=== PATIENT | male | born 1970 | race Caucasian/White ===

== ENCOUNTER 2019-11-12 09:59 | Outpatient (CLI) | payer OTHER, SELFPAY ==
[2019-11-12 10:28] LABS: Basophils # 0.1 10^3/uL (0.0-0.1); Eosinophils # 0.2 10^3/uL (0.0-0.8); Eosinophils % 3.5 %; Hematocrit 45.7 % (42.0-52.0); Hemoglobin 15.2 g/dL (11.7-16.6); Lymphocytes # 1.5 10^3/uL (0.8-4.8); Mean Corpuscular HGB Conc 33.3 g/dL (30.0-36.0); Mean Corpuscular Hemoglobin 28.1 pg (28.0-34.0); Mean Corpuscular Volume 84.6 fL (80-94); Mean Platelet Volume 10.6 fL (7.4-10.4); Monocytes # 0.4 10^3/uL (0.2-0.9); Monocytes % 6.9 %; Neutrophils # 3.6 10^3/uL (1.8-7.7); Neutrophils % 62.9 %; Nucleated Red Blood Cells % 0 %; Platelet Count 154 10^3/cmm (130-400); Red Cell Distribution Width 14.2 % (12.1-15.1); White Blood Count 5.8 10^3/uL (4.0-10.0)
[2019-11-12 10:32] LABS: Alanine Aminotransferase 52 U/L (0-41); Albumin Level 4.6 g/dL (3.5-5.2); Alkaline Phosphatase 63 IU/L (40-130); Anion Gap 16.2 (5-19); Aspartate Amino Transferase 50 U/L (0-40); Blood Urea Nitrogen 16 mg/dL (6-20); Calcium 9.7 mg/dL (8.5-10.5); Carbon Dioxide 25 mmol/L (22-29); Chloride 99 mmol/L (98-107); Globulin 2.4 g/dL (1.3-4.6); Glomerular Filtration Rate 79.1 mL/min (90-130); Glucose 166 mg/dL (65-115); Osmolality Calculated 282 mOsm/kg (285-295); Potassium 4.2 mmol/L (3.5-5.1); Sodium 136 mmol/L (136-145); Total Bilirubin 0.4 mg/dL (0.15-1.2)
[2019-11-12 11:13] LABS: Carcinoembryonic Antigen 3.7 ng/mL (0.0-4.7)
--- NOTE | 2019-11-12 12:05 | ONC FU_ITS ---
Dr. Alfaro follow up note Patient: Titus Vicente Unit #: [id number]: 1970 Dicatated By: Aleisha Alfaro M.D.Date of Visit:Nov 12, 2019 Onc Med Follow-up/Prog Note History of Present Illness: Mr. Vicente is a 49 -year-old gentleman who was recently diagnosed with colon cancer. He reports that he underwent colonoscopy which confirmed adenocarcinoma and on 02/04/2018 he underwent Hand-assisted laparoscopic left hemicolectomy. The final pathology report showed low-grade, focal penetration through muscularis propria into serosal/pericolonic connective tissue. The tumor size was 7.5 x 4.5 cm with positive small lymphovascular space invasion and 0 out of 18 lymph nodes were positive for metastatic disease. Postop it was complicated by severe skin rash with acute renal failure. He also started having stool draining from his incision. He was treated with antibiotic and TPN and with wound VAC. That has now resolved. He's had no further drainage from the wound. Mr Vicente was sent to [facility] for second opinion regarding clinical trial, if available for stage II a colon cancer. On 05/13/2018 he was evaluated by . Dr Story recommended, considering the patient's age and tumor being MMR deficient/MSI -H, and a high risk feature included only small lymphovascular involvement and possibly perineural invasion not mentioned on the path report, adjuvant FOLFOX or CAPOX , as at this point is a no clinical trial available for stage II colon cancer. Germline testing for Hawthorne syndrome was also recommended. Mr Vicente began his first cycle of FOLFOX on June 23, 2018 And completed 12 cycles of modified dose FOLFOX on 01/19/2019 . Since he is on chemotherapy his transaminases remained elevated with some fluctuation Patient did admit alcohol consumption , sometime heavily. Came for follow-up, denies any specific complaints, no fever or chills, no mouth sores no nausea vomiting, still drinking vodka on a regular basis. Patient has seen dog food dough mixer in [place] for abnormal LFTs. And also recently underwent appendicectomy on 12/11/2018 for acute appendicitis. Follow-up CT scan of abdomen done on 02/18 showed no evidence of metastatic disease in the lungs or liver Follow-up colonoscopy done on March 09, 2019 showed normal exam no evidence of stricture or anastomotic recurrence Came for follow-up, denies any specific complaint today, no fever chills, no nausea or vomiting, no mouth sores, no jaundice, no abdominal pain, no weight loss, appetite is good. 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 . Medications: Cetirizine HCl 1 Tablet (of 10 mg) Oral daily, Flonase 1 [place](s) (of 50 mcg/act) Suspension Nasal at bedtime, Lidocaine-Prilocaine 1 (2.5-2.5 %) Cream Topical PRN, LORazepam 0.5 - 1 mg (of 1 mg) Tablet Oral t.i.d. PRN, Multivitamin Adult 1 Tablet Oral daily, Prochlorperazine Maleate 1 Tablet (of 10 mg) Oral q 4 hours PRN, Protonix 1 Tablet (of 20 mg) Tablet, enteric coated Oral b.i.d. Allergies: Niacin Review of Systems: Constitutional - Appetite is good and weight is stable. No fever, chills, or night sweats. Positive for occasional hot flashes. Energy level is good, ENMT - No sinus congestion/drainage. No mouth sores. No sore throat or difficulty swallowing, Hematologic/Lymphatic - No abnormal bruising or bleeding, Respiratory - No shortness of breath. No cough. No pleuritic pain or hemoptysis, Cardiovascular - No angina pain. No palpitations, Gastrointestinal - No nausea or vomiting. No heartburn or acid reflux. No diarrhea or constipation. No blood in the stool or black stools, Genitourinary (M) - No dysuria or hematuria. No urinary frequency. No urgency or incontinence, Musculoskeletal - No joint or bone pain, Neurologic - No headache or dizziness. No numbness/paresthesias or other focal neurologic symptoms, Psychiatric - No anxiety or depression. No insomnia. Vital Signs: Performed on Nov 12, 2019 11:23 Height - 73.00 in Weight - 318.6 lbs (LOW) BSA - 2.62 sq.m BMI - 42.03 (HIGH) Temperature - 97.5 F (LOW) Pulse - 75 /min Respiration - 20 /min BP - 150/92 mm(hg) (HIGH) O2 Sat - 94 % (LOW) Pain - 0 Performance Status: 0 - Fully active, able to carry on all predisease activities without restrictions. (ECOG) Physical Examination: ENMT - No mouth sores, no thrush, no jaundice, Respiratory - Lungs are clear to auscultation, Cardiovascular - Regular rate and rhythm of heart, Abdomen - Soft, bowel sounds present, nontender, Extremities - No visible edema or rash. Lab/Imaging: Most recent lab results are not available for this patient. Impression: Infiltrating adenocarcinoma, low-grade of descending colon status post hand-assisted laparoscopic left hemicolectomy done on 02/04/2018, final pathology report showed 7.5 x 4.5 cm, focal penetration through muscularis propria into serosal/pericolonic connective tissue positive small lymphovascular space invasion, margins clear pT3, 0 out of 18 lymph node showed metastatic disease pN0 stage II CT scan of abdomen pelvis done on 02/11/2018 showed no hepatic lesion MSI status deficient Oncotype DX score 18 Patient was referred to [facility] for second opinion and clinical trials if available, patient was seen by , medical oncologist who recommended adjuvant chemotherapy with FOLFOX ???12 orCAPOX for 6 months as patient is young with high risk factor like lymphovascular space involvement and possibly perineural invasion. discussed with Mr Vicente his disease status and risk factors and the recommendations by , medical oncologist at [facility]. Mr. Vicente has agreed for adjuvant chemotherapy with FOLFOX x 12 cycles. Mr. Vicente had right subclavian Port-A-Cath placed by Dr. Stanford on 06/15/2018. He began his first cycle of FOLFOX on 06/23/2018. Patient tumor also showed loss of MMR proteins on screening IHC confirms dMMR phenotype but not necessarily indicate less than syndrome as about 15% of sporadic colorectal cancer also have MSI. Patient is BRAF negative so germline testing for Hawthorne syndrome also recommended. 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 Favor this due to hepatic steatosis or transient hepatic attenuation differences and not metastatic disease. Recommend follow-up ultrasound the liver to confirm there is no metastatic disease. There was no ascites or adenopathy in the abdomen or pelvis. Abnormal LFTs, questionable etiology could be due to fatty liver or chemotherapy-induced. He was started on modified dose of FOLFOX Patient was seen by Dr. Duenas, dog food dough mixer, at [facility] 0n12/21/2018,and his impression was patient's abnormal LFTs is due to nonalcoholic steatohepatitis, of chronic steatohepatitis and drug toxicity related to chemotherapy, FOLFOX contains oxaliplatin, and agent that can cause sinusoidal obstructive syndrome. Patient has no episode of portal hypertension or is complication. His recommendations were to continue with adjuvant chemotherapy and complete with remaining 2 cycles. Mr. Vicente did have appendectomy in November 2018. He had at cycle 11 FOLFOX on 01/04/2019 and is planned to have cycle 12 today. Plan: Discussed with patient regarding his labs white blood count 5.8 hemoglobin 15.2 crit 45.7 platelets 154,000 CMP within normal limits except glucose 166 and ALT 52 compared to 153 on February 22, 2019 and AST 50 compared to 176 on February 22, 2019 and his tumor marker CEA 3.7 Clinically, patient is doing well with no signs symptoms suggestive of recurrence of disease his follow-up lab work-up showed normal CBC and his transaminases also improved since his last visit as per patient, he is not consuming much alcohol due to coronavirus lockdown, still has abnormal LFTs in the past could be due to excessive alcohol intake. Patient was encouraged not to indulge in alcohol use, was offered any assistance he may need in the meantime we will continue to monitor his blood counts and liver function test and he will return to clinic in 4 months with CBC CMP and CEA. Signed By: Aleisha Alfaro M.D. <<Signature on File>>
== END 2019-11-12 10:00 | disposition home or self-care (01) ==
LOC: ONCMED 10:04
PROVIDERS: PCP Nurse Practitioner Family; Visit Provider Internal Medicine Hematology & Oncology
DX: Z08 Encounter for follow-up examination after completed treatment for malignant neoplasm (principal); Z85.038 Personal history of other malignant neoplasm of large intestine; K57.30 Diverticulosis of large intestine without perforation or abscess without bleeding; K21.9 Gastro-esophageal reflux disease without esophagitis; G62.9 Polyneuropathy, unspecified
CPT/HCPCS: 80053; 82378; 85025; G0463

== ENCOUNTER 2020-01-07 11:57 | Outpatient (CLI) | payer OTHER, SELFPAY ==
--- NOTE | 2020-01-07 13:30 | CT_ITS ---
WS: [id number] CT ABDOMEN PELVIS TECHNIQUE: Contrast-enhanced CT of the abdomen and pelvis with coronal and sagittal reformatted image s. CLINICAL INFORMATION: abdominal pain COMPARISON: None. DLP: 1193.[address] scans at [facility] use at least one of these dose optimization techniques: automat ed exposure control; mA and/or kV adjustment per patient size (includes targeted exams where dose is matched to clinical indication); or iterative reconstruction. FINDINGS: Hepatomegaly diffuse fatty infiltration liver. Normal spleen. Normal gallbladder. Small splenule. Mil d fatty atrophy of the pancreas. Normal GE junction. Lung bases are well aerated. Calcified granuloma is in both lower lobes. Adrenal glands are normal. Mild bilateral renal cortical atrophy. No hydronephrosis. Normal gallbladd er. Normal portal vein and splenic vein. Sigmoid diverticulosis. Prior left hemicolectomy for colon carcinoma. No evidence of residual or recu rrent disease. Normal anastomosis. No abdominal or pelvic lymphadenopathy. Normal caliber abdominal aorta. Mild spondylitic changes lumbar spine. CT/CT abdomen pelvis w con* [id number] IMPRESSION: 1. Prior postoperative changes left hemicolectomy. No evidence of recurrent di sease. 2. No recurrent mass or stricture at the anastomosis. 3. No abdominal or pelvic lymphadenopathy. 4. Hepatomegaly with diffuse fatty infiltration liver. 5. No other significant changes from previous
[2020-01-07] MEDS: iohexol 300 mg/mL 50 mL Btl PO (13:41)
[2020-01-07] MEDS: iohexol 300 mg/mL 100 mL Btl IV (13:41)
== END 2020-01-07 11:58 | disposition home or self-care (01) ==
LOC: RADWPI 12:01
PROVIDERS: PCP Nurse Practitioner Family; Visit Provider Surgery
DX: R10.9 Unspecified abdominal pain (principal); R16.0 Hepatomegaly, not elsewhere classified; K76.0 Fatty (change of) liver, not elsewhere classified
CPT/HCPCS: 74177; Q9967

== ENCOUNTER → 2020-01-21 08:26 | Outpatient (BNVA) | payer OTHER, SELFPAY | PROVIDERS: PCP Nurse Practitioner Family; Visit Provider Family Medicine | DX: I10 Essential (primary) hypertension (principal); E11.8 Type 2 diabetes mellitus with unspecified complications; E78.5 Hyperlipidemia, unspecified; Z12.5 Encounter for screening for malignant neoplasm of prostate | CPT/HCPCS: 80053; 80061; 82043; 83036; 83721; 85025; G0103 ==

== ENCOUNTER → 2020-02-16 13:23 | Outpatient (BNVA) | payer OTHER, SELFPAY | PROVIDERS: PCP Family Medicine; Visit Provider Family Medicine | DX: E78.5 Hyperlipidemia, unspecified (principal) | CPT/HCPCS: 80053 ==

== ENCOUNTER 2020-03-10 09:23 | Outpatient (CLI) | payer OTHER, SELFPAY ==
[2020-03-10 09:55] LABS: Basophils # 0.1 10^3/uL (0.0-0.1); Basophils % 1.1 %; Eosinophils # 0.2 10^3/uL (0.0-0.8); Eosinophils % 2.6 %; Hemoglobin 15.4 g/dL (11.7-16.6); Lymphocytes # 1.9 10^3/uL (0.8-4.8); Lymphocytes % 28.2 %; Mean Corpuscular HGB Conc 32.8 g/dL (30.0-36.0); Mean Corpuscular Hemoglobin 28.3 pg (28.0-34.0); Mean Corpuscular Volume 86.2 fL (80-94); Mean Platelet Volume 10.3 fL (7.4-10.4); Monocytes # 0.6 10^3/uL (0.2-0.9); Monocytes % 9.1 %; Neutrophils # 3.83 10^3/uL (1.8-7.7); Neutrophils % 58.2 %; Nucleated Red Blood Cells % 0 %; Platelet Count 189 10^3/cmm (130-400); Red Blood Count 5.45 10^6/uL (4.1-5.3); Red Cell Distribution Width 13.8 % (12.1-15.1); White Blood Count 6.6 10^3/uL (4.0-10.0)
[2020-03-10 10:23] LABS: Carcinoembryonic Antigen 3.4 ng/mL (0.0-4.7)
[2020-03-10 10:34] LABS: Alanine Aminotransferase 98 U/L (0-41); Albumin Level 4.6 g/dL (3.5-5.2); Alkaline Phosphatase 63 IU/L (40-130); Anion Gap 18.4 (5-19); Aspartate Amino Transferase 88 U/L (0-40); Blood Urea Nitrogen 15 mg/dL (6-20); Calcium 9.4 mg/dL (8.5-10.5); Carbon Dioxide 21 mmol/L (22-29); Chloride 99 mmol/L (98-107); Globulin 2.9 g/dL (1.3-4.6); Glomerular Filtration Rate 70.6 mL/min (90-130); Glucose 164 mg/dL (65-115); Osmolality Calculated 282 mOsm/kg (285-295); Potassium 4.4 mmol/L (3.5-5.1); Sodium 134 mmol/L (136-145); Total Bilirubin 0.4 mg/dL (0.15-1.2); Total Protein 7.5 g/dL (6.6-8.7)
--- NOTE | 2020-03-10 11:38 | ONC FU_ITS ---
Dr. Alfaro follow up note Patient: Titus Vicente Unit #: [id number]: 1970 Dicatated By: Aleisha Alfaro M.D.Date of Visit:Mar 10, 2020 Onc Med Follow-up/Prog Note History of Present Illness: Mr. Vicente is a 50 -year-old gentleman who was recently diagnosed with colon cancer. He reports that he underwent colonoscopy which confirmed adenocarcinoma and on 02/04/2018 he underwent Hand-assisted laparoscopic left hemicolectomy. The final pathology report showed low-grade, focal penetration through muscularis propria into serosal/pericolonic connective tissue. The tumor size was 7.5 x 4.5 cm with positive small lymphovascular space invasion and 0 out of 18 lymph nodes were positive for metastatic disease. Postop it was complicated by severe skin rash with acute renal failure. He also started having stool draining from his incision. He was treated with antibiotic and TPN and with wound VAC. That has now resolved. He's had no further drainage from the wound. Mr Vicente was sent to [facility] for second opinion regarding clinical trial, if available for stage II a colon cancer. On 05/13/2018 he was evaluated by . Dr Story recommended, considering the patient's age and tumor being MMR deficient/MSI -H, and a high risk feature included only small lymphovascular involvement and possibly perineural invasion not mentioned on the path report, adjuvant FOLFOX or CAPOX , as at this point is a no clinical trial available for stage II colon cancer. Germline testing for Hawthorne syndrome was also recommended. Mr Vicente began his first cycle of FOLFOX on June 23, 2018 And completed 12 cycles of modified dose FOLFOX on 01/19/2019 . Since he is on chemotherapy his transaminases remained elevated with some fluctuation Patient did admit alcohol consumption , sometime heavily. Came for follow-up, denies any specific complaints, no fever or chills, no mouth sores no nausea vomiting, still drinking vodka on a regular basis. Patient has seen graduate civil engineer in [place] for abnormal LFTs. And also recently underwent appendicectomy on 12/11/2018 for acute appendicitis. Follow-up CT scan of abdomen done on 02/18 showed no evidence of metastatic disease in the lungs or liver Follow-up colonoscopy done on March 09, 2019 showed normal exam no evidence of stricture or anastomotic recurrence Patient underwent CT scan of abdomen pelvis on January 07, 2020 because of right upper quadrant pain and it showed no evidence of disease but hepatomegaly with diffuse fatty infiltration of the liver. No lymphadenopathy. . Came for follow-up, patient denies any specific complaints, no fever chills, no nausea or vomiting, right upper quadrant pain has resolved, no melena or hematochezia, appetite is good, patient said his still drinking but in moderation. Medications: Atorvastatin Calcium 1 Tablet (of 20 mg) Oral daily, Cetirizine HCl 1 Tablet (of 10 mg) Oral daily, Flonase 1 [place](s) (of 50 mcg/act) Suspension Nasal at bedtime, Lidocaine-Prilocaine 1 (2.5-2.5 %) Cream Topical PRN, Lisinopril 1 Tablet (of 5 mg) Oral daily, LORazepam 0.5 - 1 mg (of 1 mg) Tablet Oral t.i.d. PRN, metFORMIN HCl 1 Tablet (of 500 mg) Oral daily, Multivitamin Adult 1 Tablet Oral daily, Prochlorperazine Maleate 1 Tablet (of 10 mg) Oral q 4 hours PRN, Protonix 1 Tablet (of 20 mg) Tablet, enteric coated Oral b.i.d. Allergies: Niacin Review of Systems: Review of Systems is not available for this patient. Vital Signs: Performed on Mar 10, 2020 10:59 Height - 73.00 in Weight - 312.8 lbs (LOW) BSA - 2.60 sq.m BMI - 41.27 (HIGH) Temperature - 97.1 F (LOW) Pulse - 80 /min Respiration - 20 /min BP - 142/83 mm(hg) (HIGH) O2 Sat - 97 % Pain - 0 Performance Status: 0 - Fully active, able to carry on all predisease activities without restrictions. (ECOG) Physical Examination: ENMT - No mouth sores, no thrush, no jaundice, Respiratory - Lungs are clear to auscultation, Cardiovascular - Regular rate and rhythm of heart, Abdomen - Soft, bowel sounds present, Extremities - No visible edema. Lab/Imaging: Test performed on Nov 12, 2019 10:10 Sodium 136 mmol/L Potassium 4.2 mmol/L Chloride 99 mmol/L CO2 25 mmol/L Anion Gap 16.2 BUN 16 mg/dL Creatinine 1.0 mg/dL Cr Clearance (Est) 175.4300 mL/min eGFR 79.1 mL/min Glucose 166 mg/dL Calcium 9.7 mg/dL Protein, Total 7.0 g/dL Albumin 4.6 g/dL Globulin 2.4 g/dL Bilirubin, Total 0.4 mg/dL ALT (SGPT) 52 U/L AST (SGOT) 50 U/L Alkaline Phosphatase 63 IU/L WBC 5.8 10 3/uL RBC 5.40 10 6/uL HGB 15.2 g/dL HCT 45.7 % MCV 84.6 fL MCH 28.1 pg MCHC 33.3 g/dL RDW 14.2 % Platelet Count 154 10 3/cmm MPV 10.6 fL Neutrophils 3.6 10 3/uL Lymphocytes 1.5 10 3/uL Monocytes 0.4 10 3/uL Eosinophils 0.2 10 3/uL Basophils 0.1 10 3/uL Neutrophil % 62.9 % Lymphocyte % 25.0 % Monocyte % 6.9 % Eosinophil % 3.5 % Basophils % 1.0 % NRBC % 0 % CEA 3.7 ng/mL Impression: Infiltrating adenocarcinoma, low-grade of descending colon status post hand-assisted laparoscopic left hemicolectomy done on 02/04/2018, final pathology report showed 7.5 x 4.5 cm, focal penetration through muscularis propria into serosal/pericolonic connective tissue positive small lymphovascular space invasion, margins clear pT3, 0 out of 18 lymph node showed metastatic disease pN0 stage II CT scan of abdomen pelvis done on 02/11/2018 showed no hepatic lesion MSI status deficient Oncotype DX score 18 Patient was referred to [facility] for second opinion and clinical trials if available, patient was seen by , medical oncologist who recommended adjuvant chemotherapy with FOLFOX ???12 orCAPOX for 6 months as patient is young with high risk factor like lymphovascular space involvement and possibly perineural invasion. discussed with Mr Vicente his disease status and risk factors and the recommendations by , medical oncologist at [facility]. Mr. Vicente has agreed for adjuvant chemotherapy with FOLFOX x 12 cycles. Mr. Vicente had right subclavian Port-A-Cath placed by Dr. Stanford on 06/15/2018. He began his first cycle of FOLFOX on 06/23/2018. Patient tumor also showed loss of MMR proteins on screening IHC confirms dMMR phenotype but not necessarily indicate less than syndrome as about 15% of sporadic colorectal cancer also have MSI. Patient is BRAF negative so germline testing for Hawthorne syndrome also recommended. 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 Favor this due to hepatic steatosis or transient hepatic attenuation differences and not metastatic disease. Recommend follow-up ultrasound the liver to confirm there is no metastatic disease. There was no ascites or adenopathy in the abdomen or pelvis. Abnormal LFTs, questionable etiology could be due to fatty liver or chemotherapy-induced. He was started on modified dose of FOLFOX Patient was seen by Dr. Duenas, graduate civil engineer, at [facility] 0n12/21/2018,and his impression was patient's abnormal LFTs is due to nonalcoholic steatohepatitis, of chronic steatohepatitis and drug toxicity related to chemotherapy, FOLFOX contains oxaliplatin, and agent that can cause sinusoidal obstructive syndrome. Patient has no episode of portal hypertension or is complication. His recommendations were to continue with adjuvant chemotherapy and complete with remaining 2 cycles. Mr. Vicente did have appendectomy in November 2018. He had at cycle 11 FOLFOX on 01/04/2019 and is planned to have cycle 12 today. Plan: Discussed with patient regarding his labs white blood count 6.6 hemoglobin 15.4 hematocrit 47 platelets 189,000 CMP within normal limit except glucose 164 ALT 98 AST 88 compared to 52/50 on November 12, 2019 Clinically, patient is doing well with no signs symptoms testing of recurrence of disease his follow-up lab work-up is within normal range except persistent and progressive transaminases and patient recently underwent CT scan of abdomen ordered by Dr. Stanford for right upper quadrant pain which shows hepatomegaly with diffuse fatty infiltration, patient said he was recently started on triglyceride lowering medicine. And also watching diet. Patient was also advised to quit alcohol use or at least cut down. We will continue to monitor and he will return to clinic in 6 months with CBC CMP. Signed By: Aleisha Alfaro M.D. <<Signature on File>>
== END 2020-03-10 09:24 | disposition home or self-care (01) ==
LOC: ONCMED 09:25
PROVIDERS: PCP Family Medicine; Visit Provider Internal Medicine Hematology & Oncology
DX: Z08 Encounter for follow-up examination after completed treatment for malignant neoplasm (principal); Z85.038 Personal history of other malignant neoplasm of large intestine; R74.01 Elevation of levels of liver transaminase levels; K76.0 Fatty (change of) liver, not elsewhere classified; Z90.49 Acquired absence of other specified parts of digestive tract; Z92.21 Personal history of antineoplastic chemotherapy
CPT/HCPCS: 80053; 82378; 85025; G0463

== ENCOUNTER → 2020-04-04 08:36 | Outpatient (BNVA) | payer OTHER, SELFPAY | PROVIDERS: PCP Family Medicine; Visit Provider Nurse Practitioner Family | DX: Z11.59 Encounter for screening for other viral diseases (principal) | CPT/HCPCS: 87635 ==

== ENCOUNTER → 2020-04-25 08:42 | Outpatient (BNVA) | payer OTHER, SELFPAY | PROVIDERS: PCP Family Medicine; Visit Provider Family Medicine | DX: E78.1 Pure hyperglyceridemia (principal); E11.8 Type 2 diabetes mellitus with unspecified complications | CPT/HCPCS: 80053; 80061; 83036; 83721 ==

== ENCOUNTER → 2020-07-31 10:21 | Outpatient (BNVA) | payer OTHER, SELFPAY | PROVIDERS: PCP Family Medicine; Visit Provider Family Medicine | DX: E11.8 Type 2 diabetes mellitus with unspecified complications (principal); I10 Essential (primary) hypertension; F17.229 Nicotine dependence, chewing tobacco, with unspecified nicotine-induced disorders; Z68.41 Body mass index [BMI] 40.0-44.9, adult | CPT/HCPCS: 80053; 83036 ==

== ENCOUNTER 2020-08-09 11:22 | Outpatient (CLI) | payer OTHER, SELFPAY ==
[2020-08-09 12:48] LABS: Basophils # 0.1 10^3/uL (0.0-0.1); Eosinophils # 0.1 10^3/uL (0.0-0.8); Hematocrit 45.7 % (42.0-52.0); Hemoglobin 14.7 g/dL (11.7-16.6); Lymphocytes # 1.8 10^3/uL (0.8-4.8); Lymphocytes % 26.3 %; Mean Corpuscular HGB Conc 32.2 g/dL (30.0-36.0); Mean Corpuscular Hemoglobin 26.9 pg (28.0-34.0); Mean Corpuscular Volume 83.5 fL (80-94); Monocytes # 0.6 10^3/uL (0.2-0.9); Neutrophils % 61.3 %; Nucleated Red Blood Cells % 0 %; Platelet Count 214 10^3/cmm (130-400); Red Blood Count 5.47 10^6/uL (4.1-5.3); Red Cell Distribution Width 14.3 % (12.1-15.1); White Blood Count 6.9 10^3/uL (4.0-10.0)
[2020-08-09 13:07] LABS: Alanine Aminotransferase 36 U/L (0-41); Albumin Level 4.4 g/dL (3.5-5.2); Alkaline Phosphatase 59 IU/L (40-130); Aspartate Amino Transferase 33 U/L (0-40); Blood Urea Nitrogen 16 mg/dL (6-20); Calcium 9.3 mg/dL (8.5-10.5); Carbon Dioxide 23 mmol/L (22-29); Chloride 102 mmol/L (98-107); Globulin 3.4 g/dL (1.3-4.6); Glomerular Filtration Rate 78.8 mL/min (90-130); Glucose 115 mg/dL (65-115); Osmolality Calculated 288 mOsm/kg (285-295); Sodium 138 mmol/L (136-145); Total Bilirubin 0.4 mg/dL (0.15-1.2); Total Protein 7.8 g/dL (6.6-8.7)
[2020-08-09 13:08] LABS: Anion Gap 17.4 (5-19); Potassium 4.4 mmol/L (3.5-5.1)
--- NOTE | 2020-08-09 14:05 | ONC FU_ITS ---
Dr. Alfaro follow up note Patient: Titus Vicente Unit #: [id number]: [id number] Dicatated By: Aleisha Alfaro M.D.Date of Visit:Aug 09, 2020 Onc Med Follow-up/Prog Note History of Present Illness: Mr. Vicente is a 50 -year-old gentleman who was recently diagnosed with colon cancer. He reports that he underwent colonoscopy which confirmed adenocarcinoma and on 02/04/2018 he underwent Hand-assisted laparoscopic left hemicolectomy. The final pathology report showed low-grade, focal penetration through muscularis propria into serosal/pericolonic connective tissue. The tumor size was 7.5 x 4.5 cm with positive small lymphovascular space invasion and 0 out of 18 lymph nodes were positive for metastatic disease. Postop it was complicated by severe skin rash with acute renal failure. He also started having stool draining from his incision. He was treated with antibiotic and TPN and with wound VAC. That has now resolved. He's had no further drainage from the wound. Mr Vicente was sent to [facility] for second opinion regarding clinical trial, if available for stage II a colon cancer. On 05/13/2018 he was evaluated by . Dr Story recommended, considering the patient's age and tumor being MMR deficient/MSI -H, and a high risk feature included only small lymphovascular involvement and possibly perineural invasion not mentioned on the path report, adjuvant FOLFOX or CAPOX , as at this point is a no clinical trial available for stage II colon cancer. Germline testing for Hawthorne syndrome was also recommended. Mr Vicente began his first cycle of FOLFOX on June 23, 2018 And completed 12 cycles of modified dose FOLFOX on 01/19/2019 . Since he is on chemotherapy his transaminases remained elevated with some fluctuation Patient did admit alcohol consumption , sometime heavily. Came for follow-up, denies any specific complaints, no fever or chills, no mouth sores no nausea vomiting, still drinking vodka on a regular basis. Patient has seen mobile practice lead in [place] for abnormal LFTs. And also recently underwent appendicectomy on 12/11/2018 for acute appendicitis. Follow-up CT scan of abdomen done on 02/18 showed no evidence of metastatic disease in the lungs or liver Follow-up colonoscopy done on March 09, 2019 showed normal exam no evidence of stricture or anastomotic recurrence Patient underwent CT scan of abdomen pelvis on January 07, 2020 because of right upper quadrant pain and it showed no evidence of disease but hepatomegaly with diffuse fatty infiltration of the liver. No lymphadenopathy. . Came for follow-up, denies any specific complaints, no fever chills, no nausea or vomiting, no diarrhea constipation, no jaundice, no abdominal pain, no melena or hematochezia, appetite is good. Patient said he has cut down alcohol intake significantly in the past few weeks. Medications: Atorvastatin Calcium 1 Tablet (of 20 mg) Oral daily, Cetirizine HCl 1 Tablet (of 10 mg) Oral daily, Flonase 1 [place](s) (of 50 mcg/act) Suspension Nasal at bedtime, Lidocaine-Prilocaine 1 (2.5-2.5 %) Cream Topical PRN, Lisinopril 1 Tablet (of 5 mg) Oral daily, LORazepam 0.5 - 1 mg (of 1 mg) Tablet Oral t.i.d. PRN, metFORMIN HCl 1 Tablet (of 500 mg) Oral daily, Multivitamin Adult 1 Tablet Oral daily, Prochlorperazine Maleate 1 Tablet (of 10 mg) Oral q 4 hours PRN, Protonix 1 Tablet (of 20 mg) Tablet, enteric coated Oral b.i.d. Allergies: Niacin Review of Systems: Review of Systems is not available for this patient. Vital Signs: Performed on Aug 09, 2020 13:51 Height - 73.00 in Weight - 307 lbs (LOW) BSA - 2.58 sq.m BMI - 40.50 (HIGH) Temperature - 97.9 F (LOW) Pulse - 88 /min Respiration - 18 /min BP - 141/75 mm(hg) (HIGH) O2 Sat - 96 % Pain - 0 Fatigue - 0 Performance Status: 0 - Fully active, able to carry on all predisease activities without restrictions. (ECOG) Physical Examination: ENMT - No mouth sores, no thrush, no jaundice, Respiratory - Lungs are clear to auscultation, Cardiovascular - Regular rate and rhythm of heart, Abdomen - Soft, bowel sounds present, Extremities - No visible edema. Lab/Imaging: Test performed on Mar 10, 2020 09:35 Sodium 134 mmol/L Potassium 4.4 mmol/L Chloride 99 mmol/L CO2 21 mmol/L Anion Gap 18.4 BUN 15 mg/dL Creatinine 1.1 mg/dL Cr Clearance (Est) 157.7100 mL/min eGFR 70.6 mL/min Glucose 164 mg/dL Osmolality - Calculated 282 mOsm/kg Calcium 9.4 mg/dL Protein, Total 7.5 g/dL Albumin 4.6 g/dL Globulin 2.9 g/dL Bilirubin, Total 0.4 mg/dL ALT (SGPT) 98 U/L AST (SGOT) 88 U/L Alkaline Phosphatase 63 IU/L WBC 6.6 10 3/uL RBC 5.45 10 6/uL HGB 15.4 g/dL HCT 47.0 % MCV 86.2 fL MCH 28.3 pg MCHC 32.8 g/dL RDW 13.8 % Platelet Count 189 10 3/cmm MPV 10.3 fL Neutrophils 3.83 10 3/uL Lymphocytes 1.9 10 3/uL Monocytes 0.6 10 3/uL Eosinophils 0.2 10 3/uL Basophils 0.1 10 3/uL Neutrophil % 58.2 % Lymphocyte % 28.2 % Monocyte % 9.1 % Eosinophil % 2.6 % Basophils % 1.1 % NRBC % 0 % CEA 3.4 ng/mL Impression: Infiltrating adenocarcinoma, low-grade of descending colon status post hand-assisted laparoscopic left hemicolectomy done on 02/04/2018, final pathology report showed 7.5 x 4.5 cm, focal penetration through muscularis propria into serosal/pericolonic connective tissue positive small lymphovascular space invasion, margins clear pT3, 0 out of 18 lymph node showed metastatic disease pN0 stage II CT scan of abdomen pelvis done on 02/11/2018 showed no hepatic lesion MSI status deficient Oncotype DX score 18 Patient was referred to [facility] for second opinion and clinical trials if available, patient was seen by , medical oncologist who recommended adjuvant chemotherapy with FOLFOX ???12 orCAPOX for 6 months as patient is young with high risk factor like lymphovascular space involvement and possibly perineural invasion. discussed with Mr Vicente his disease status and risk factors and the recommendations by , medical oncologist at [facility]. Mr. Vicente has agreed for adjuvant chemotherapy with FOLFOX x 12 cycles. Mr. Vicente had right subclavian Port-A-Cath placed by Dr. Stanford on 06/15/2018. He began his first cycle of FOLFOX on 06/23/2018. Patient tumor also showed loss of MMR proteins on screening IHC confirms dMMR phenotype but not necessarily indicate less than syndrome as about 15% of sporadic colorectal cancer also have MSI. Patient is BRAF negative so germline testing for Hawthorne syndrome also recommended. 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 Favor this due to hepatic steatosis or transient hepatic attenuation differences and not metastatic disease. Recommend follow-up ultrasound the liver to confirm there is no metastatic disease. There was no ascites or adenopathy in the abdomen or pelvis. Abnormal LFTs, questionable etiology could be due to fatty liver or chemotherapy-induced. He was started on modified dose of FOLFOX Patient was seen by Dr. Duenas, mobile practice lead, at [facility] 0n12/21/2018,and his impression was patient's abnormal LFTs is due to nonalcoholic steatohepatitis, of chronic steatohepatitis and drug toxicity related to chemotherapy, FOLFOX contains oxaliplatin, and agent that can cause sinusoidal obstructive syndrome. Patient has no episode of portal hypertension or is complication. His recommendations were to continue with adjuvant chemotherapy and complete with remaining 2 cycles. Mr. Vicente did have appendectomy in November 2018. He had at cycle 11 FOLFOX on 01/04/2019 and is planned to have cycle 12 today. Plan: Discussed with patient regarding his labs white blood count 6.9 hemoglobin 14.7 hematocrit 45.7 platelets 214,000 CMP within normal limits including AST and ALT Clinically, patient doing well with no signs symptoms suggestive of recurrence of disease his follow-up lab shows no abnormality in fact his transaminase which has been high due to fatty liver, now improved and will continue to monitor and he will return to clinic in 6 months with CBC CMP and CEA. Patient was advised to quit alcohol use. Signed By: Aleisha Alfaro M.D. <<Signature on File>>
== END 2020-08-09 11:23 | disposition home or self-care (01) ==
LOC: ONCMED 11:24
PROVIDERS: PCP Family Medicine; Visit Provider Internal Medicine Hematology & Oncology
DX: Z08 Encounter for follow-up examination after completed treatment for malignant neoplasm (principal); Z85.038 Personal history of other malignant neoplasm of large intestine; K76.0 Fatty (change of) liver, not elsewhere classified; Z90.49 Acquired absence of other specified parts of digestive tract; Z92.21 Personal history of antineoplastic chemotherapy
CPT/HCPCS: 36415; 80053; 85025; G0463

== ENCOUNTER → 2020-08-23 09:34 | Outpatient (BNVA) | payer OTHER, SELFPAY | PROVIDERS: PCP Nurse Practitioner Family; Visit Provider Nurse Practitioner Family | DX: R19.7 Diarrhea, unspecified (principal); Z85.038 Personal history of other malignant neoplasm of large intestine; R50.9 Fever, unspecified; R10.813 Right lower quadrant abdominal tenderness | CPT/HCPCS: 80053; 85025 ==

== ENCOUNTER 2020-08-24 11:30 | Outpatient (CLI) | payer OTHER, SELFPAY ==
--- NOTE | 2020-08-24 13:00 | CT_ITS ---
WS: [id number] CT ABDOMEN AND PELVIS WITH CONTRAST HISTORY: R10.9 - Unspecified abdominal pain TECHNIQUE: Imaging performed of the abdomen and pelvis with IV contrast. Single phase imaging of the abdomen. Coronal and sagittal reformats are submitted. All CT scans at [facility] use at least one of these dose optimization techniques: automated exposure control; mA and/or kV adjustment per patient size (includes targeted exams where dose is matched to clinical indication); or iterativ e reconstruction. IV CONTRAST: Omnipaque 300; 95 mL IV. Oral contrast: Yes. DLP: 2052.17 mGy.cm COMPARISON: 01/07/2020 Lower thorax: Bibasilar benign calcifications. Heart is normal size. No hiatal hernia. Liver/biliary system: Mild hepatic steatosis and hepatomegaly. No mass or bile duct dilatation. Gallbladder: Normal. No gallstones or wall thickening. No pericholecystic fluid. Pancreas: Normal. Spleen: Normal. Adrenal glands: Normal. Right kidney: Very minimal perinephric stranding around the RIGHT kidney with no obstruction or absce ss. Left kidney: Minimal stranding around the LEFT kidney with no obstruction or abscess. There is a cent ral renal cyst measuring 1.5 cm. Aorta: Mild atherosclerosis with no aneurysm. Lymphadenopathy: None. Free fluid: None. GI tract: Prior appendectomy. There are a few scattered diverticula in the distal colon. No acute inf lammatory changes. Patient is status post LEFT hemicolectomy as per history. No mass identified. Abdominal wall: Unremarkable abdominal wall. No hernia. Pelvis: No free fluid in the pelvis. No adenopathy. Minimally distended urinary bladder. Bones: Advanced degenerative changes in the facet joints of the lower lumbar spine. CT/CT abdomen pelvis w con* [id number] IMPRESSION: 1. Distal colonic mild diverticulosis without diverticulitis. 2. Very minimal perinephric stranding around each kidney. This may be chronic or related to mild pyelonephritis. 3. Mild hepatic steatosis and hepatomegaly.
[2020-08-24] MEDS: iohexol 300 mg/mL 50 mL Btl PO (13:06)
[2020-08-24] MEDS: iohexol 300 mg/mL 100 mL Btl IV (13:06)
== END 2020-08-24 11:31 | disposition home or self-care (01) ==
LOC: RAD 11:35
PROVIDERS: PCP Nurse Practitioner Family; Visit Provider Nurse Practitioner Family
DX: R10.9 Unspecified abdominal pain (principal); R19.7 Diarrhea, unspecified; K76.0 Fatty (change of) liver, not elsewhere classified; R16.0 Hepatomegaly, not elsewhere classified; K57.90 Diverticulosis of intestine, part unspecified, without perforation or abscess without bleeding
CPT/HCPCS: 74177; 87506

== ENCOUNTER → 2020-08-31 16:14 | Outpatient (BNVA) | payer OTHER, SELFPAY | PROVIDERS: PCP Nurse Practitioner Family; Visit Provider Nurse Practitioner Family | DX: R93.89 Abnormal findings on diagnostic imaging of other specified body structures (principal) | CPT/HCPCS: 81003; 87086 ==

== ENCOUNTER → 2020-11-22 09:20 | Outpatient (BNVA) | payer OTHER, SELFPAY | PROVIDERS: PCP Family Medicine; Visit Provider Family Medicine | DX: E11.8 Type 2 diabetes mellitus with unspecified complications (principal); E78.5 Hyperlipidemia, unspecified | CPT/HCPCS: 80053; 80061; 82043; 83036; 83721 ==

== ENCOUNTER → 2021-05-29 09:28 | Outpatient (BNVA) | payer OTHER, SELFPAY | PROVIDERS: PCP Family Medicine; Visit Provider Nurse Practitioner Family | DX: R05.9 Cough, unspecified (principal) | CPT/HCPCS: 80053; 85025 ==

== ENCOUNTER → 2021-06-07 09:46 | Outpatient (BNVA) | payer OTHER, SELFPAY | PROVIDERS: PCP Family Medicine; Visit Provider Family Medicine | DX: E11.8 Type 2 diabetes mellitus with unspecified complications (principal); E78.5 Hyperlipidemia, unspecified; Z12.5 Encounter for screening for malignant neoplasm of prostate | CPT/HCPCS: 80061; 82043; 83036; 83721; G0103 ==

== ENCOUNTER → 2021-12-06 10:25 | Outpatient (BNVA) | payer OTHER, SELFPAY | PROVIDERS: PCP Family Medicine; Visit Provider Family Medicine | DX: E11.8 Type 2 diabetes mellitus with unspecified complications (principal) | CPT/HCPCS: 80053; 83036 ==

== ENCOUNTER → 2021-12-24 11:39 | Outpatient (BNVA) | payer OTHER, SELFPAY | PROVIDERS: PCP Family Medicine; Visit Provider Nurse Practitioner Family | DX: J01.90 Acute sinusitis, unspecified (principal); R05.9 Cough, unspecified; J40 Bronchitis, not specified as acute or chronic; J01.00 Acute maxillary sinusitis, unspecified | CPT/HCPCS: 80053 ==

== ENCOUNTER → 2022-03-05 08:41 | Outpatient (BNVA) | payer OTHER, SELFPAY | PROVIDERS: PCP Family Medicine; Visit Provider Family Medicine | DX: E11.8 Type 2 diabetes mellitus with unspecified complications (principal); I10 Essential (primary) hypertension; E78.5 Hyperlipidemia, unspecified; C18.6 Malignant neoplasm of descending colon; F17.229 Nicotine dependence, chewing tobacco, with unspecified nicotine-induced disorders | CPT/HCPCS: 80053; 83036 ==

== ENCOUNTER 2022-03-12 08:02 | Oncology outpatient (recurring) (ONCR) | payer OTHER, SELFPAY ==
[2022-03-12 08:26] LABS: Basophils # 0.1 10^3/uL (0.0-0.1); Basophils % 1.3 %; Eosinophils # 0.2 10^3/uL (0.0-0.8); Eosinophils % 3.4 %; Hematocrit 45.6 % (42.0-52.0); Hemoglobin 15.1 g/dL (11.7-16.6); Lymphocytes # 1.8 10^3/uL (0.8-4.8); Lymphocytes % 30.2 %; Mean Corpuscular HGB Conc 33.1 g/dL (30.0-36.0); Mean Corpuscular Hemoglobin 27.9 pg (28.0-34.0); Mean Corpuscular Volume 84.1 fl (80-94); Mean Platelet Volume 10.1 fL (7.4-10.4); Monocytes # 0.5 10^3/uL (0.2-0.9); Monocytes % 8.5 %; Neutrophils # 3.39 10^3/uL (1.8-7.7); Neutrophils % 55.6 %; Nucleated Red Blood Cells % 0 %; Platelet Count 179 10^3/cmm (130-400); Red Blood Count 5.42 10^6/uL (4.1-5.3); Red Cell Distribution Width 15.2 % (12.1-15.1); White Blood Count 6.1 10^3/uL (4.0-10.0)
[2022-03-12 09:09] LABS: Alanine Aminotransferase 47 U/L (0-41); Albumin Level 4.4 g/dL (3.5-5.2); Alkaline Phosphatase 64 U/L (40-130); Anion Gap 21.6 (5-19); Aspartate Amino Transferase 39 U/L (0-40); Blood Urea Nitrogen 14 mg/dL (6-20); Calcium 9.7 mg/dL (8.5-10.5); Carbon Dioxide 20 mmol/L (22-29); Chloride 101 mmol/L (98-107); Globulin 2.9 g/dL (1.3-4.6); Glucose 151 mg/dL (65-115); Osmolality Calculated 289 mOsm/kg (285-295); Potassium 4.6 mmol/L (3.5-5.1); Sodium 138 mmol/L (136-145); Total Bilirubin 0.6 mg/dL (0.15-1.2); Total Protein 7.3 g/dL (6.6-8.7)
== END 2022-04-01 23:59 | disposition home or self-care (01) ==
PROVIDERS: PCP Family Medicine; Visit Provider Internal Medicine Hematology & Oncology
DX: C18.6 Malignant neoplasm of descending colon (principal)
CPT/HCPCS: 36415; 80053; 82378; 85025

== ENCOUNTER → 2022-06-04 09:35 | Outpatient (BNVA) | payer OTHER, SELFPAY | PROVIDERS: PCP Family Medicine; Visit Provider Family Medicine | DX: E78.5 Hyperlipidemia, unspecified (principal); E11.8 Type 2 diabetes mellitus with unspecified complications; Z12.5 Encounter for screening for malignant neoplasm of prostate | CPT/HCPCS: 80053; 80061; 82043; 83036; 83721; G0103 ==

== ENCOUNTER 2022-09-23 06:23 | Outpatient (CLI) | payer OTHER, SELFPAY ==
--- NOTE | 2022-09-23 07:30 | CT_ITS ---
WS: [id number] CT CHEST, ABDOMEN, AND PELVIS TECHNIQUE: Contrast-enhanced CT of the chest, abdomen, and pelvis with coronal and sagittal reformatt ed images. CLINICAL INFORMATION: Follow up COMPARISON: CT August 24, 2020, 01/07/2020 and 02/18 DLP: 1852.[address] scans at [facility] use at least one of these dose optimization techniques: automated e xposure control; mA and/or kV adjustment per patient size (includes targeted exams where dose is matc hed to clinical indication); or iterative reconstruction. CT CHEST: Lungs are well aerated. Tiny 3 mm nodule LEFT upper lobe unchanged since 2018. No suspicious pulmonar y parenchymal abnormalities. No acute pulmonary infiltrates. No focal pneumonia or pleural fluid. A f ew calcified granulomas. No mediastinal or hilar lymphadenopathy. Normal caliber thoracic aorta. No a xillary lymphadenopathy. A few small thyroid nodules. Hypertrophic changes thoracic spine. CT ABDOMEN AND PELVIS: Hepatomegaly with diffuse fatty infiltration liver. Normal portal vein and splenic vein. Normal splee n. Small splenule. Normal GE junction. A few small LEFT renal cysts. Adrenal glands are normal. Lory l caliber abdominal aorta. Sigmoid diverticulosis. No evidence of acute diverticulitis. Normal gallbladder. Mild fatty atrophy o f the pancreas. Mild bilateral renal cortical atrophy. No hydronephrosis. Prior left hemicolectomy for colon carcinoma. No evidence of residual or recurrent disease. Normal an astomosis. No abdominal or pelvic lymphadenopathy. Normal caliber abdominal aorta. Mild spondylitic c hanges lumbar spine. Moderate central canal stenosis L3-L4 due to disc osteophyte protrusion. CT/CT chest abdpel w/*[id number] IMPRESSION: 1. Prior postoperative changes left hemicolectomy. No evidence of recurrent or progressed disease. 2. No recurrent mass or stricture at the anastomosis. 3. No abdominal or pelvic lymphadenopathy. 4. Hepatomegaly with diffuse fatty infiltration liver. 5. No evidence of metastatic disease in the chest.
[2022-09-23] MEDS: iohexol 350 mg/mL 500 mL Btl (per mL) IV (07:47)
[2022-09-23] MEDS: iohexol 350 mg/mL 500 mL Btl (per mL) PO (07:48)
== END 2022-09-23 06:24 | disposition home or self-care (01) ==
LOC: RAD 06:25
PROVIDERS: PCP Family Medicine; Visit Provider Internal Medicine Hematology & Oncology
DX: C18.6 Malignant neoplasm of descending colon (principal)
CPT/HCPCS: 71260; 74177; Q9967

== ENCOUNTER 2022-09-26 12:28 | Oncology outpatient (recurring) (ONCR) | payer OTHER, SELFPAY ==
[2022-09-26 13:11] LABS: Basophils # 0.1 10^3/uL (0.0-0.1); Basophils % 1.1 %; Eosinophils # 0.2 10^3/uL (0.0-0.8); Eosinophils % 3.4 %; Hematocrit 45.5 % (42.0-52.0); Hemoglobin 14.7 g/dL (11.7-16.6); Lymphocytes # 1.5 10^3/uL (0.8-4.8); Lymphocytes % 24.7 %; Mean Corpuscular HGB Conc 32.3 g/dL (30.0-36.0); Mean Corpuscular Hemoglobin 27.3 pg (28.0-34.0); Mean Corpuscular Volume 84.4 fl (80-94); Mean Platelet Volume 9.9 fL (7.4-10.4); Monocytes # 0.5 10^3/uL (0.2-0.9); Monocytes % 7.3 %; Neutrophils # 3.88 10^3/uL (1.8-7.7); Nucleated Red Blood Cells % 0 %; Platelet Count 154 10^3/cmm (130-400); Red Blood Count 5.39 10^6/uL (4.1-5.3); Red Cell Distribution Width 14.8 % (12.1-15.1); White Blood Count 6.2 10^3/uL (4.0-10.0)
[2022-09-26 13:48] LABS: Carcinoembryonic Antigen 2.9 ng/mL (0.0-4.7)
[2022-09-26 13:59] LABS: Alanine Aminotransferase 53 U/L (0-41); Albumin Level 4.5 g/dL (3.5-5.2); Alkaline Phosphatase 55 U/L (40-130); Anion Gap 18.1 (5-19); Aspartate Amino Transferase 43 U/L (0-40); Blood Urea Nitrogen 15 mg/dL (6-20); Calcium 9.2 mg/dL (8.5-10.5); Carbon Dioxide 22 mmol/L (22-29); Chloride 100 mmol/L (98-107); Globulin 2.6 g/dL (1.3-4.6); Glomerular Filtration Rate 88.3 mL/min (90-130); Glucose 142 mg/dL (65-115); Osmolality Calculated 285 mOsm/kg (285-295); Potassium 4.1 mmol/L (3.5-5.1); Sodium 136 mmol/L (136-145); Total Bilirubin 0.4 mg/dL (0.15-1.2); Total Protein 7.1 g/dL (6.6-8.7)
== END 2022-09-29 23:59 | disposition home or self-care (01) ==
PROVIDERS: Nurse Practitioner Family; PCP Family Medicine; Visit Provider Internal Medicine Hematology & Oncology
DX: C18.6 Malignant neoplasm of descending colon (principal)
CPT/HCPCS: 80053; 82378; 85025

== ENCOUNTER → 2022-12-19 10:53 | Outpatient (BNVA) | payer OTHER, SELFPAY | PROVIDERS: PCP Family Medicine; Visit Provider Family Medicine | DX: E11.8 Type 2 diabetes mellitus with unspecified complications (principal); G47.00 Insomnia, unspecified | CPT/HCPCS: 80053; 83036 ==

== ENCOUNTER 2023-02-06 10:09 | Emergency (ER) | payer OTHER, SELFPAY ==
[2023-02-06 10:33] VITALS: BP 165/109; PULSE 78; RESP 16; TEMP 36.7; O2SAT 97; BMI 40.6
--- NOTE | 2023-02-06 10:47 | XR_ITS ---
WS: [id number] Right hip, 2 views, AP pelvis, 02/06/2023 Clinical Data: pain Comparison: None. Findings: No fractures or dislocations are seen. The right hip shows no erosion, sclerosis, narrowing, cyst for mation or fragmentation of the femoral head. The left hip is normal. The SI joints and pubic symphysi s are unremarkable. The soft tissues are not remarkable. The adjacent pelvis is normal. Impression: Negative pelvis and right hip. Tonnis classification: grade 0: normal radiographs
--- NOTE | 2023-02-06 13:38 | XR_ITS ---
WS: [id number] Lumbar spine, 3 views, 02/06/2023 Clinical Data: low back pain Comparison: None. Findings: No compression fractures or subluxation is seen. Degenerative disc narrowing occurs at L3-L4, L4-L5 a nd L5-S1. There is osteoarthritic spurring of all the lumbar vertebral bodies. The transverse process es and SI joints are normal. There is calcification in the wall of the abdominal aorta but no aneurysm. Impression: 1. Degenerative disc narrowing at L3-L4, L4-L5 and L5-S1. 2. Osteoarthritis of all the lumbar vertebral bodies.
[2023-02-06 13:39] VITALS: BP 151/98; PULSE 75; RESP 18; O2SAT 96
[2023-02-06] MEDS: diazePAM 5 mg Tablet PO (13:46)
--- NOTE | 2023-02-06 14:36 | W.ED.EXTPRO ---
Documented by User: MANDY Barbosa 02/06/23 16:15 HPI - Extremity Problem General: Chief complaint: Extremity Problem,Nontraumatic Stated complaint: RT Hip Inj Time Seen by Provider: 02/06/23 13:12 History of Present Illness: Patient is in today for right hip and low back pain. Patient reports that last Friday he was walking out to feed the chickens and suddenly on his way back he felt excruciating pain in his right side hip. He reports its like his hip is locking up. He denies any injury or trauma. He reports that it felt like it was spasming he had been trying [id number] NSAIDs at home. He did end up going to urgent care and received a steroid shot and some muscle relaxer. He reports that those seem to not have any effect at all and he went back to urgent care on Friday. Patient reports that at that time they gave him increased dose of the muscle relaxer. Patient reports that he has been taking increased dose and has had 0 effect at all. He is trying to do warm compresses. He has been to the chiropractor twice who has concern over the lumbar region of his spine. Patient denies any saddle anesthesia, loss of bowel or bladder continence. He denies any fever, chills, urinary symptoms. Associated symptoms: Deny chest pain or fever(s) Review of Systems Const: Denies: fever(s) or chills Card: Denies: chest pain or palpitations Resp: Denies: dyspnea, productive cough or non-productive cough GI: Denies: abdominal pain, nausea, vomiting, diarrhea or constipation : Denies: flank pain, difficulty urinating, dysuria, urinary frequency, urinary urgency or urinary dribbling Musc: Reports: back pain, extremity pain and limited range of motion [facility] ED PFSH: Medical History Anxiety Colon cancer Diabetic neuropathy Dyslipidemia Elevated LFTs Essential hypertension GERD (gastroesophageal reflux disease) History of 2019 novel coronavirus disease (COVID-19) History of MRSA infection History of pancreatitis Obesity Type 2 diabetes mellitus with complication Surgical History History of appendectomy History of colon resection Family History Other CAD (coronary artery disease) Diabetes Hypertension Denies family history of Anesthesia complication Bleeding disorder Social History Smoking and tobacco status: current every day smoker (chewing tobcco) smokeless tobacco Smokeless tobacco user: chewing tobacco Second hand smoke exposure: No Alcohol intake: current Alcohol intake frequency: few times a month Alcohol type: beer Substance/Drug Use: never Lives independently: Yes Household members: spouse Marital status: Current occupational status: employed Current occupation: [employer] Current gender identity: Male Physical Exam Const: COMMON NORMALS: no acute distress, patient oriented x3 and alert OTHER: Patient does appear to be in pain and is guarded in his movement Neck/C-Spine: COMMON NORMALS: no JVD Resp: COMMON NORMALS: normal respiratory effort, No use of accessory muscles and clear to auscultation bilaterally AUSCULTATION: clear to auscultation bilaterally Cardio: COMMON NORMALS: no JVD, regular rate, regular rhythm and S2 normal heart sound present RATE: regular rate RHYTHM: regular rhythm HEART SOUNDS: S2 normal heart sound present GI: COMMON NORMALS: Normal to inspection, nondistended, normoactive bowel sounds present, Soft to palpation and non-tender PALPATION: Yes Soft to palpation : COMMON NORMALS: Yes no CVA tenderness BLADDER/KIDNEY EXAM: Yes no CVA tenderness Back/Pelvis: COMMON NORMALS: no CVA tenderness OTHER: Patient has tenderness to palpation L3-L4 region no specific vertebral point tenderness however patient is generally tender to the musculature surrounding that region. No obvious bony or soft tissue deformity is appreciated. Patient is also acutely tender to palpation of the right sciatic region of the buttocks. Patient is able to stand and bear weight he does take small steps for walking. Neuro: COMMON NORMALS: patient oriented x3 SENSORIUM/ORIENTATION: Yes alert Course Vital Signs: Vital signs: Vital Signs Temperature 98.0 F 02/06/23 10:33 Pulse Rate 76 02/06/23 14:50 Respiratory Rate 18 02/06/23 13:39 Blood Pressure 151/98 02/06/23 13:39 Pulse Oximetry 95 02/06/23 14:50 Oxygen Delivery Me thod Room Air 02/06/23 13:39 MDM - Extremity (Nontraumatic) Medical Decision Making Consider lumbar radiculopathy, sciatica, intervertebral disc compression X-ray hip and pelvis do not show any acute abnormalities Lumbar spine x-ray shows significant osteoarthritis L3-4 and 5 as well as spurring on all the lumbar vertebra.? I discussed with patient, at length, the results of the x-ray as well as conservative treatment for his current pain.? We discussed gentle stretches, warm compresses.? I change his muscle relaxer to tizanidine and discussed possible risk and benefits of this medication.? Provided him with a short-term dose of ibuprofen 800 mg.? Advised him that he must take these medications with food and make sure that he is staying plenty hydrated as they can be hard on his kidneys.? Advised him to follow-up with his primary care provider I did place an order for case management to refer patient to Ortho spine for further evaluation and determination of plan of care.? Patient verbalizes understanding.? Advised him to return to ER for any new or worsening symptoms including, but not limited to, saddle anesthesia, loss of bowel or bladder function, fever.? Patient and spouse verbalized understanding of instructions and agreement with plan of care.? Patient discharged in stable condition? Chart reviewed and patient discussed with midlevel. Agree with assessment and plan. Discharge Plan Discharge Patient Disposition: Home Clinical Impression: Lumbar radiculopathy, Osteoarthritis of lumbar spine Condition: Stable Prescriptions: New ibuprofen 800 mg tablet 800 mg PO Q8H PRN (Reason: pain) Qty: 21 0RF tizanidine 2 mg capsule 2 mg PO Q8H PRN (Reason: muscle spasticity) Qty: 10 0RF No Action omeprazole 20 mg capsule,delayed release(DR/EC) 20 mg PO DAILY betamethasone dipropionate 0.05 % cream 1 applic topical BID PRN (Reason: skin irritation) Qty: 45 1RF cetirizine [Zyrtec] 10 mg tablet 10 mg PO DAILY diphenhydramine HCl [Benadryl] 25 mg capsule 25 mg PO DAILY cyclobenzaprine 5 mg tablet 5 mg PO TID PRN (Reason: muscle pain) 20 Days Qty: 15 0RF Rx Instructions: May take 10mg if needed for pain. (DME) [employer]uch Ultra Blue Test Strip Strip See Rx Instructions .ROUTE .MEDSUPPLY Qty: 50 2RF Rx Instructions: use to check blood sugar daily lisinopril 10 mg tablet 10 mg PO DAILY Qty: 90 1RF fenofibrate nanocrystallized [Tricor] 145 mg tablet 145 mg PO DAILY 90 Days Qty: 90 1RF zinc acetate 50 mg (zinc) Capsule 50 mg PO DAILY Vitamin C 500 mg Tablet 500 mg PO DAILY Vitamin D3 50 mcg (2,000 unit) Capsule 100 mcg PO DAILY atorvastatin 40 mg tablet 40 mg PO .at bedtime Januvia 100 mg tablet 100 mg PO DAILY Invokana 300 mg tablet 300 mg PO DAILY amitriptyline 25 mg tablet 25 mg PO .qhs PRN (Reason: Sleep) Discharge Orders: Discharge ED (Routine); Ordered 02/06/23 Ordered By: Kaitlin Shukla Referrals: Purvi Mullen DO [Primary Care Provider] - Discharge Diet: Usual diet Discharge Activity: Limit activity as instructed Patient Instructions: Lumbar Radiculopathy (ED), Lower Back Exercises (ED) Activity Restrictions/Additional Instructions: Stop the Flexeril. You may take tizanidine every 8 hours as needed for muscle spasm/pain. Do not drive after taking this medication. Do not take any other medication that makes you sleepy with this medication. Take ibuprofen every 8 hours for the next 2 to 3 days with food. Make sure that you are staying well-hydrated. A consult was placed with case management to help get you into orthopedics for further evaluation. Return to the ER as needed for any new or worsening symptoms. Coding Level of Care Code ED Special Education Paraeducator for Chg Fwd Documented by User: Hussein Dennis DO 02/06/23 16:14 HPI - Extremity Problem General: Chief complaint: Extremity Problem,Nontraumatic Stated complaint: RT Hip Inj Time Seen by Provider: 02/06/23 13:12 PFSH ED PFSH: Medical History Anxiety Colon cancer Diabetic neuropathy Dyslipidemia Elevated LFTs Essential hypertension GERD (gastroesophageal reflux disease) History of 2019 novel coronavirus disease (COVID-19) History of MRSA infection History of pancreatitis Obesity Type 2 diabetes mellitus with complication Surgical History History of appendectomy History of colon resection Family History Other CAD (coronary artery disease) Diabetes Hypertension Denies family history of Anesthesia complication Bleeding disorder Social History Smoking and tobacco status: current every day smoker (chewing tobcco) smokeless tobacco Smokeless tobacco user: chewing tobacco Second hand smoke exposure: No Alcohol intake: current Alcohol intake frequency: few times a month Alcohol type: beer Substance/Drug Use: never Lives independently: Yes Household members: spouse Marital status: Current occupational status: employed Current occupation: [employer] Current gender identity: Male Course Vital Signs: Vital signs: Vital Signs Temperature 98.0 F 02/06/23 10:33 Pulse Rate 76 02/06/23 14:50 Respiratory Rate 18 02/06/23 13:39 Blood Pressure 151/98 02/06/23 13:39 Pulse Oximetry 95 02/06/23 14:50 Oxygen Delivery Me thod Room Air 02/06/23 13:39 MDM - Extremity (Nontraumatic) Medical Decision Making Consider lumbar radiculopathy, sciatica, intervertebral disc compression X-ray hip and pelvis do not show any acute abnormalities Chart reviewed and patient discussed with midlevel. Agree with assessment and plan. Discharge Plan Discharge Patient Disposition: Home Clinical Impression: Lumbar radiculopathy, Osteoarthritis of lumbar spine Condition: Stable Prescriptions: New ibuprofen 800 mg tablet 800 mg PO Q8H PRN (Reason: pain) Qty: 21 0RF tizanidine 2 mg capsule 2 mg PO Q8H PRN (Reason: muscle spasticity) Qty: 10 0RF No Action omeprazole 20 mg capsule,delayed release(DR/EC) 20 mg PO DAILY betamethasone dipropionate 0.05 % cream 1 applic topical BID PRN (Reason: skin irritation) Qty: 45 1RF cetirizine [Zyrtec] 10 mg tablet 10 mg PO DAILY diphenhydramine HCl [Benadryl] 25 mg capsule 25 mg PO DAILY cyclobenzaprine 5 mg tablet 5 mg PO TID PRN (Reason: muscle pain) 20 Days Qty: 15 0RF Rx Instructions: May take 10mg if needed for pain. (DME) [employer] Ultra Blue Test Strip Strip See Rx Instructions .ROUTE .MEDSUPPLY Qty: 50 2RF Rx Instructions: use to check blood sugar daily lisinopril 10 mg tablet 10 mg PO DAILY Qty: 90 1RF fenofibrate nanocrystallized [Tricor] 145 mg tablet 145 mg PO DAILY 90 Days Qty: 90 1RF zinc acetate 50 mg (zinc) Capsule 50 mg PO DAILY Vitamin C 500 mg Tablet 500 mg PO DAILY Vitamin D3 50 mcg (2,000 unit) Capsule 100 mcg PO DAILY atorvastatin 40 mg tablet 40 mg PO .at bedtime Januvia 100 mg tablet 100 mg PO DAILY Invokana 300 mg tablet 300 mg PO DAILY amitriptyline 25 mg tablet 25 mg PO .qhs PRN (Reason: Sleep) Discharge Orders: Discharge ED (Routine); Ordered 02/06/23 Ordered By: Kaitlin Shukla Referrals: Purvi Mullen DO [Primary Care Provider] - Discharge Diet: Usual diet Discharge Activity: Limit activity as instructed Patient Instructions: Lumbar Radiculopathy (ED), Lower Back Exercises (ED) Activity Restrictions/Additional Instructions: Stop the Flexeril. You may take tizanidine every 8 hours as needed for muscle spasm/pain. Do not drive after taking this medication. Do not take any other medication that makes you sleepy with this medication. Take ibuprofen every 8 hours for the next 2 to 3 days with food. Make sure that you are staying well-hydrated. A consult was placed with case management to help get you into orthopedics for further evaluation. Return to the ER as needed for any new or worsening symptoms. Coding Level of Care Code ED Special Education Paraeducator for Aaron Ingram
[2023-02-06 14:50] VITALS: PULSE 76; O2SAT 95
--- NOTE | 2023-02-06 15:48 | DCPLANNER ---
Addendum entered by iKra Lu 02/13/23 14:46: Patient has a follow up appointment scheduled for 02.18.23 at 8:[address] Boswell at ortho. Original Note: manager orange had message to schedule a follow up appointment for patient with ortho. manager orange sent patients information to the front office staff at ortho. Patients information will be printed and reviewed. Clinic will call patient with appointment information.
== END 2023-02-06 14:52 | disposition home or self-care (01) ==
PROVIDERS: Emergency Provider Nurse Practitioner Family; PCP Family Medicine
DX: M47.26 Other spondylosis with radiculopathy, lumbar region (principal); F17.220 Nicotine dependence, chewing tobacco, uncomplicated; Z85.038 Personal history of other malignant neoplasm of large intestine; E11.9 Type 2 diabetes mellitus without complications; E78.5 Hyperlipidemia, unspecified; I10 Essential (primary) hypertension
CPT/HCPCS: 72100; 73502; 99284

== ENCOUNTER 2023-03-27 13:22 | Oncology outpatient (recurring) (ONCR) | payer OTHER, SELFPAY ==
[2023-03-27 13:31] VITALS: BP 142/92; PULSE 109; RESP 18; TEMP 36.5; O2SAT 98
[2023-03-27 13:57] LABS: Basophils # 0.1 10^3/uL (0.0-0.1); Basophils % 1.1 %; Eosinophils # 0.2 10^3/uL (0.0-0.8); Eosinophils % 3.4 %; Hematocrit 46.6 % (37-53); Lymphocytes # 1.8 10^3/uL (0.8-4.8); Lymphocytes % 24.9 %; Mean Corpuscular HGB Conc 33.5 g/dL (30-55); Mean Corpuscular Hemoglobin 28.1 pg (27-33); Mean Platelet Volume 10.5 fL (7.4-10.4); Monocytes # 0.6 10^3/uL (0.2-0.9); Neutrophils # 4.37 10^3/uL (1.8-7.7); Nucleated Red Blood Cells % 0 %; Platelet Count 191 10^3/cmm (157-399); Red Blood Count 5.55 10^6/uL (3.85-5.65); Red Cell Distribution Width 14.2 % (12.1-15.1); White Blood Count 7.04 10^3/uL (3.29-11.43)
[2023-03-27 14:25] LABS: Carcinoembryonic Antigen 2.6 ng/mL (0.0-4.7)
[2023-03-27 14:36] LABS: Alanine Aminotransferase 39 U/L (0-41); Albumin Level 4.8 g/dL (3.5-5.2); Alkaline Phosphatase 53 U/L (40-130); Blood Urea Nitrogen 16 mg/dL (6-20); Calcium 9.5 mg/dL (8.5-10.5); Carbon Dioxide 21 mmol/L (22-29); Chloride 100 mmol/L (98-107); Globulin 2.6 g/dL (1.3-4.6); Glomerular Filtration Rate 69.8 mL/min (90-130); Glucose 156 mg/dL (65-115); Osmolality Calculated 282 mOsm/kg (285-295); Sodium 134 mmol/L (136-145); Total Bilirubin 0.4 mg/dL (0.15-1.2); Total Protein 7.4 g/dL (6.6-8.7)
[2023-03-27 14:40] LABS: Aspartate Amino Transferase 40 U/L (0-40)
== END 2023-04-01 23:59 | disposition home or self-care (01) ==
PROVIDERS: Nurse Practitioner Family; PCP Family Medicine; Visit Provider Internal Medicine Hematology & Oncology
DX: C18.9 Malignant neoplasm of colon, unspecified (principal); D50.8 Other iron deficiency anemias
CPT/HCPCS: 36415; 80053; 82378; 85025

== ENCOUNTER → 2023-07-14 11:34 | Outpatient (BNVA) | payer OTHER, SELFPAY | PROVIDERS: PCP Family Medicine; Visit Provider Family Medicine | DX: E11.8 Type 2 diabetes mellitus with unspecified complications (principal); Z12.5 Encounter for screening for malignant neoplasm of prostate; C18.6 Malignant neoplasm of descending colon | CPT/HCPCS: 80053; 80061; 82043; 82378; 83036; 85025; G0103 ==

== ENCOUNTER 2023-08-27 10:00 | Outpatient (CLI) | payer OTHER, SELFPAY ==
--- NOTE | 2023-08-27 11:00 | CT_ITS ---
WS: [id number] CT CHEST, ABDOMEN, AND PELVIS TECHNIQUE: Contrast-enhanced CT of the chest, abdomen, and pelvis with coronal and sagittal reformatt ed images. CLINICAL INFORMATION: surveillance COMPARISON: 09/23/2022 DLP: 1790.[address] scans at [facility] use at least one of these dose optimization techniques: automated e xposure control; mA and/or kV adjustment per patient size (includes targeted exams where dose is matc hed to clinical indication); or iterative reconstruction. CT CHEST: Tiny 3 mm nodule LEFT upper lobe unchanged since 2019. No suspicious pulmonary parenchymal abnormalit ies. No acute pulmonary infiltrates. No focal pneumonia or pleural fluid. A few calcified granulomas. No mediastinal or hilar lymphadenopathy. Normal caliber thoracic aorta. No axillary lymphadenopathy. A few small thyroid nodules. Hypertrophic changes thoracic spine. CT ABDOMEN AND PELVIS: Prior left hemicolectomy for colon carcinoma. No evidence of residual or recurrent disease. Normal an astomosis. No abdominal or pelvic lymphadenopathy Hepatomegaly with diffuse fatty infiltration. Normal portal vein and splenic vein. Normal spleen. Sma ll splenule. Normal GE junction. A few small LEFT renal cysts. Adrenal glands are normal. Normal jemiam lindsay abdominal aorta. Sigmoid diverticulosis. No evidence of acute diverticulitis. Normal gallbladder. Mild fatty atrophy of the pancreas. Mild bilateral renal cortical atrophy. No hydronephrosis. Normal caliber abdominal aorta. Mild spondylitic changes lumbar spine. Moderate central canal stenosi s L3-L4 due to disc osteophyte protrusion. IMPRESSION: 1. No evidence of recurrent or progressive metastatic disease. 2. Prior postoperative changes LEFT hemicolectomy 3. No adenopathy in the chest abdomen or pelvis. 4. Sigmoid diverticulosis 5. Hepatomegaly with diffuse fatty infiltration 6. No other suspicious findings.
[2023-08-27] MEDS: iohexol 350 mg/mL 500 mL Btl (per mL) PO (11:08)
[2023-08-27] MEDS: iohexol 350 mg/mL 500 mL Btl (per mL) IV (11:31)
== END 2023-08-27 10:01 | disposition home or self-care (01) ==
PROVIDERS: PCP Family Medicine; Visit Provider Nurse Practitioner Family
DX: Z08 Encounter for follow-up examination after completed treatment for malignant neoplasm (principal); K57.30 Diverticulosis of large intestine without perforation or abscess without bleeding; K76.0 Fatty (change of) liver, not elsewhere classified; Z90.49 Acquired absence of other specified parts of digestive tract
CPT/HCPCS: 71260; 74177; Q9967

== ENCOUNTER 2023-09-30 12:33 | Oncology outpatient (recurring) (ONCR) | payer OTHER, SELFPAY ==
[2023-09-30 12:47] LABS: Basophils # 0.1 10^3/uL (0.0-0.1); Basophils % 1.3 %; Eosinophils # 0.3 10^3/uL (0.0-0.8); Eosinophils % 4.1 %; Hematocrit 46.2 % (37-53); Lymphocytes # 1.6 10^3/uL (0.8-4.8); Lymphocytes % 25.5 %; Mean Corpuscular HGB Conc 33.3 g/dL (30-55); Mean Corpuscular Hemoglobin 28.4 pg (27-33); Mean Corpuscular Volume 85.1 fl (82-101); Mean Platelet Volume 9.9 fL (7.4-10.4); Monocytes # 0.5 10^3/uL (0.2-0.9); Monocytes % 7.5 %; Neutrophils # 3.71 10^3/uL (1.8-7.7); Neutrophils % 60.8 %; Nucleated Red Blood Cells % 0 %; Platelet Count 148 10^3/cmm (157-399); Red Blood Count 5.43 10^6/uL (3.85-5.65); Red Cell Distribution Width 14.6 % (12.1-15.1); White Blood Count 6.11 10^3/uL (3.29-11.43)
[2023-09-30 13:15] LABS: Carcinoembryonic Antigen 2.8 ng/mL (0.0-4.7)
[2023-09-30 13:26] LABS: Alanine Aminotransferase 36 U/L (0-41); Albumin Level 4.5 g/dL (3.5-5.2); Alkaline Phosphatase 57 U/L (40-130); Blood Urea Nitrogen 18 mg/dL (6-20); Calcium 9.3 mg/dL (8.5-10.5); Carbon Dioxide 20 mmol/L (22-29); Chloride 101 mmol/L (98-107); Glomerular Filtration Rate 69.8 mL/min (90-130); Glucose 135 mg/dL (65-115); Osmolality Calculated 286 mOsm/kg (285-295); Sodium 136 mmol/L (136-145); Total Bilirubin 0.5 mg/dL (0.15-1.2); Total Protein 7.5 g/dL (6.6-8.7)
[2023-09-30 13:43] LABS: Anion Gap 19.1 (5-19); Aspartate Amino Transferase 39 U/L (0-40); Potassium 4.1 mmol/L (3.5-5.1)
== END 2023-09-30 23:59 | disposition home or self-care (01) ==
PROVIDERS: Nurse Practitioner Family; PCP Family Medicine; Visit Provider Internal Medicine Medical Oncology
DX: C18.6 Malignant neoplasm of descending colon (principal); Z53.9 Procedure and treatment not carried out, unspecified reason
CPT/HCPCS: 36415; 80053; 82378; 85025

== ENCOUNTER → 2023-10-09 11:05 | Outpatient (BNVA) | payer OTHER, SELFPAY | PROVIDERS: PCP Family Medicine; Visit Provider Family Medicine | DX: E11.8 Type 2 diabetes mellitus with unspecified complications (principal); Z13.6 Encounter for screening for cardiovascular disorders; K57.92 Diverticulitis of intestine, part unspecified, without perforation or abscess without bleeding | CPT/HCPCS: 80053; 83036 ==

== ENCOUNTER → 2024-04-11 12:00 | Outpatient (BNVA) | payer OTHER, SELFPAY | PROVIDERS: PCP Family Medicine; Visit Provider Emergency Medicine | DX: S91.339A Puncture wound without foreign body, unspecified foot, initial encounter (principal); E11.10 Type 2 diabetes mellitus with ketoacidosis without coma; W26.8XXA Contact with other sharp object(s), not elsewhere classified, initial encounter | CPT/HCPCS: 73630 ==

== ENCOUNTER → 2024-04-13 08:07 | Outpatient (BNVA) | payer OTHER, SELFPAY | PROVIDERS: PCP Family Medicine; Visit Provider Podiatrist Foot & Ankle Surgery | DX: M79.671 Pain in right foot (principal); L02.611 Cutaneous abscess of right foot; S91.331A Puncture wound without foreign body, right foot, initial encounter; W26.8XXA Contact with other sharp object(s), not elsewhere classified, initial encounter; E11.8 Type 2 diabetes mellitus with unspecified complications | CPT/HCPCS: 73630 ==

== ENCOUNTER 2024-04-13 08:44 | Inpatient (IN) | payer OTHER, SELFPAY ==
[2024-04-13] VITALS (24 sets, daily range): BP systolic 111–166; BP diastolic 64–97; PULSE 92–121; RESP 16–20; TEMP 36.4–38.5; O2SAT 93–100; BMI 40.2
--- NOTE | 2024-04-13 09:02 | W.ED.EXTPRO ---
Documented by User: BING Alex 04/13/24 10:41 HPI - Extremity Problem General: Chief complaint: Wound/Laceration Stated complaint: Right foot pain (Dr. De La Garza) Time Seen by Provider: 04/13/24 09:00 Source: patient and family Mode of arrival: wheelchair Limitations: no limitations History of Present Illness: Patient is a nice 54-year-old male who presents to ED today along with his for concerns of a right foot infection. Patient states on Wednesday 04/11 he stepped on a screw through his Croc shoes. He was subsequently seen at the walk-in clinic and placed on Levaquin. They updated his tetanus. He has been taking antibiotic as directed but continues to worsen. He saw Dr. De La Garza today in office and had x-rays performed which showed gas formation and concern for abscess. Dr. De La Garza recommended he come to the emergency department for admission/IV antibiotics/plan for OR later today. Patient is a diabetic. Other past medical history include hyperlipidemia and hypertension. He has had systemic symptoms including chills, body aches, and subjective fevers. MD Complaint: extremity pain and extremity swelling Onset (ago): day(s) Pain Consistency: constant Location: right and lower extremity (foot) Radiation: none Relieving factors: nothing Exacerbating factors: weight bearing, walking and palpation Associated symptoms: Reports fever(s); Deny chest pain Related Data Home Medications Medication Instructions Recorded Confirmed omeprazole 20 mg capsule,delayed 20 mg PO DAILY 06/07/19 04/13/24 release cetirizine 10 mg tablet (Zyrtec) 10 mg PO DAILY 11/01/19 04/13/24 diphenhydramine HCl 25 mg capsule 25 mg PO BEDTIME 11/01/19 04/13/24 (Benadryl) ascorbic acid (vitamin C) 500 mg 500 mg PO DAILY 02/06/23 04/13/24 tablet (Vitamin C) cholecalciferol (vitamin D3) 50 100 mcg PO DAILY 02/06/23 04/13/24 mcg (2,000 unit) capsule (Vitamin D3) zinc acetate 50 mg (zinc) capsule 50 mg PO DAILY 02/06/23 04/13/24 naproxen sodium 220 mg capsule 220 mg PO Q8H PRN Pain 03/27/23 04/13/24 (Aleve) amitriptyline 25 mg tablet 25 mg PO BEDTIME 04/13/24 04/13/24 atorvastatin 40 mg tablet 40 mg PO BEDTIME 04/13/24 04/13/24 fenofibrate nanocrystallized 145 145 mg PO QPM 04/13/24 04/13/24 mg tablet ibuprofen 200 mg tablet 800 mg PO Q6H PRN Pain 04/13/24 04/13/24 lisinopril 10 mg tablet 10 mg PO DAILY 04/13/24 04/13/24 sitagliptin phosphate 100 mg 100 mg PO DAILY 04/13/24 04/13/24 tablet (Januvia) Previous Rx's Medication Instructions Recorded blood sugar diagnostic (OneTouch #50 ea 02/16/20 Ultra Blue Test Strip) betamethasone dipropionate 0.05 % 1 applic topical BID PRN skin 10/09/23 topical cream irritation #45 grams buspirone 7.5 mg tablet 7.5 mg PO BID #60 tabs 03/29/24 levofloxacin 750 mg tablet 750 mg PO DAILY 7 days #7 tabs 04/11/24 Allergies Allergy/AdvReac Type Severity Reaction Status Date / Time No Known Allergies Allergy Verified 04/13/24 07:49 Review of Systems Const: Reports: fever(s), chills and body aches Card: Denies: chest pain Resp: Denies: dyspnea GI: Reports: nausea; Denies: abdominal pain, vomiting or diarrhea : Denies: flank pain, difficulty urinating, dysuria, urinary frequency, urinary urgency or urinary hesitancy Musc: Reports: extremity pain (R foot) and extremity swelling (R foot); Denies: neck pain, back pain, joint pain or joint swelling Neuro: Denies: headache(s) PFSH ED PFSH: Medical History Alcohol use disorder, severe, dependence History of back injury History of back pain History of arthritis History of osteoarthritis History of 2019 novel coronavirus disease (COVID-19) Elevated LFTs History of MRSA infection Type 2 diabetes mellitus with complication Essential hypertension Dyslipidemia Anxiety GERD (gastroesophageal reflux disease) Diabetic neuropathy Colon cancer History of pancreatitis Obesity Surgical History History of colon resection History of appendectomy Family History Other CAD (coronary artery disease) Diabetes Hypertension Denies family history of Anesthesia complication Bleeding disorder Social History Smoking and tobacco/nicotine status: current some day tobacco/nicotine user (CIGARS) smokeless tobacco Smokeless tobacco user: chewing tobacco Second hand smoke exposure: No Alcohol intake: current Alcohol intake frequency: 3 or more drinks per day Alcohol type: beer Substance/Drug Use: never Lives independently: Yes Household members: spouse Marital status: Current occupational status: employed Current occupation: [employer] Current gender identity: Male Physical Exam Const: COMMON NORMALS: no acute distress, patient oriented x3, no limitations, alert and well nourished GENERAL APPEARANCE: cooperative NUTRITIONAL APPEARANCE: obese Resp: COMMON NORMALS: normal respiratory effort and clear to auscultation bilaterally AUSCULTATION: clear to auscultation bilaterally Cardio: COMMON NORMALS: regular rhythm RATE: tachycardic RHYTHM: regular rhythm GI: COMMON NORMALS: Normal to inspection, nondistended, normoactive bowel sounds present, Soft to palpation and non-tender PALPATION: Yes Soft to palpation Extremity: COMMON NORMALS: no calf tenderness GENERAL: Yes normal exam except as noted RIGHT LOWER EXTREMITY: Yes foot & digits (plantar puncture wound-edematous, erythematous, exquisitely tender) Right foot and digits: Yes inspection (edema/erythema affecting R plantar/dorsal foot without streaking) and Yes neurovascular exam (normal) Neuro: COMMON NORMALS: patient oriented x3, moves all extremities, no focal motor deficits and no sensory deficits noted SENSORIUM/ORIENTATION: Yes alert Course Consultations: Consultation #1: Dr. Perez-accepts hospitalization Consultation #2: Dr. De La Garza-will consult and plan for OR later today Vital Signs: Vital signs: Vital Signs Temperature 98.6 F 04/13/24 13:01 Pulse Rate 96 04/13/24 13:01 Respiratory Rate 17 04/13/24 13:01 Blood Pressure 126/83 04/13/24 13:01 Pulse Oximetry 97 04/13/24 13:01 Oxygen Delivery Me thod Room Air 04/13/24 13:01 MDM - Extremity (Nontraumatic) Medical Decision Making Patient will be admitted to Dr. Perez with Dr. De La Garza to consult and plan for the OR later today. He has been made NPO and blood cultures were obtained and started on IV abx. Medical Records I reviewed the patient's medical records. Lab Data I reviewed the patient's lab results. 04/13/24 09:16 04/13/24 09:16 Laboratory Results WBC 7.52 10^3/uL (3.29-11.43) 04/13/24 09:16 RBC 5.05 10^6/uL (3.85-5.65) 04/13/24 09:16 Hgb 14.30 g/dL (11.27-16.99) 04/13/24 09:16 Hct 43.0 % (37-53) 04/13/24 09:16 MCV 85.1 fl (82-101) 04/13/24 09:16 MCH 28.3 pg (27-33) 04/13/24 09:16 MCHC 33.3 g/dL (30-55) 04/13/24 09:16 RDW 14.3 % (12.1-15.1) 04/13/24 09:16 Plt Count 144 10^3/cmm (157-399) L 04/13/24 09:16 MPV 10.8 fL (7.4-10.4) H 04/13/24 09:16 Neut % (Auto) 71.1 % 04/13/24 09:16 Lymph % (Auto) 16.8 % 04/13/24 09:16 Wheeler % (Auto) 8.4 % 04/13/24 09:16 Eos % (Auto) 2.1 % 04/13/24 09:16 Baso % (Auto) 0.7 % 04/13/24 09:16 Neut # (Auto) 5.35 10^3/uL (1.8-7.7) 04/13/24 09:16 Lymph # (Auto) 1.3 10^3/uL (0.8-4.8) 04/13/24 09:16 Wheeler # (Auto) 0.6 10^3/uL (0.2-0.9) 04/13/24 09:16 Eos # (Auto) 0.2 10^3/uL (0.0-0.8) 04/13/24 09:16 Baso # (Auto) 0.1 10^3/uL (0.0-0.1) 04/13/24 09:16 Nucleated RBC % (auto) 0 % 04/13/24 09:16 Nucleated RBCs # 0.0 /100WBC 04/13/24 09:16 ESR 6 mm/hr (0-10) 04/13/24 09:16 Sodium 133 mmol/L (136-145) L 04/13/24 09:16 Potassium 5.0 mmol/L (3.5-5.1) 04/13/24 09:16 Chloride 97 mmol/L (98-107) L 04/13/24 09:16 Carbon Dioxide 22 mmol/L (22-29) 04/13/24 09:16 Anion Gap 19.0 (5-19) 04/13/24 09:16 BUN 15 mg/dL (6-20) 04/13/24 09:16 Creatinine 1.2 mg/dL (0.7-1.2) 04/13/24 09:16 GFR Calculation 62.9 mL/min (90-130) L 04/13/24 09:16 Glucose 282 mg/dL (65-115) H 04/13/24 09:16 POC Glucose 266 mg/dL (70-110) H 04/13/24 09:27 Estimat Average Glucose 186 04/13/24 09:16 Hemoglobin A1c 8.1 % (4.0-6.0) H 04/13/24 09:16 Calculated Osmolality 287 mOsm/kg (285-295) 04/13/24 09:16 Lactic Acid 2.7 mmol/L (0.5-2.2) H 04/13/24 09:16 Calcium 9.2 mg/dL (8.5-10.5) 04/13/24 09:16 Total Bilirubin 0.5 mg/dL (0.15-1.2) 04/13/24 09:16 AST 19 U/L (0-40) 04/13/24 09:16 ALT 26 U/L (0-41) 04/13/24 09:16 Alkaline Phosphatase 78 U/L (40-130) 04/13/24 09:16 C-Reactive Protein 108.5 mg/L (0.0-4.9) H 04/13/24 09:16 Total Protein 7.5 g/dL (6.6-8.7) 04/13/24 09:16 Albumin 4.4 g/dL (3.5-5.2) 04/13/24 09:16 Globulin 3.1 g/dL (1.3-4.6) 04/13/24 09:16 No radiology studies performed this visit (had XRs earlier in Dr. De La Garza's office) Discharge Plan Discharge Patient Disposition: Admitted As Inpatient Admit Provider: Jim Perez Clinical Impression: Abscess of right foot, Puncture wound of plantar aspect of right foot with infection Condition: Stable Coding Level of Care Code [employer] Sales Executive for Chg Fwd Documented by User: Hussein Dennis DO 04/13/24 13:35 HPI - Extremity Problem General: Chief complaint: Wound/Laceration Stated complaint: Right foot pain (Dr. De La Garza) Time Seen by Provider: 04/13/24 09:00 Related Data Home Medications Medication Instructions Recorded Confirmed omeprazole 20 mg capsule,delayed 20 mg PO DAILY 06/07/19 04/13/24 release cetirizine 10 mg tablet (Zyrtec) 10 mg PO DAILY 11/01/19 04/13/24 diphenhydramine HCl 25 mg capsule 25 mg PO BEDTIME 11/01/19 04/13/24 (Benadryl) ascorbic acid (vitamin C) 500 mg 500 mg PO DAILY 02/06/23 04/13/24 tablet (Vitamin C) cholecalciferol (vitamin D3) 50 100 mcg PO DAILY 02/06/23 04/13/24 mcg (2,000 unit) capsule (Vitamin D3) zinc acetate 50 mg (zinc) capsule 50 mg PO DAILY 02/06/23 04/13/24 naproxen sodium 220 mg capsule 220 mg PO Q8H PRN Pain 03/27/23 04/13/24 (Aleve) amitriptyline 25 mg tablet 25 mg PO BEDTIME 04/13/24 04/13/24 atorvastatin 40 mg tablet 40 mg PO BEDTIME 04/13/24 04/13/24 fenofibrate nanocrystallized 145 145 mg PO QPM 04/13/24 04/13/24 mg tablet ibuprofen 200 mg tablet 800 mg PO Q6H PRN Pain 04/13/24 04/13/24 lisinopril 10 mg tablet 10 mg PO DAILY 04/13/24 04/13/24 sitagliptin phosphate 100 mg 100 mg PO DAILY 04/13/24 04/13/24 tablet (Januvia) Previous Rx's Medication Instructions Recorded blood sugar diagnostic (OneTouch #50 ea 02/16/20 Ultra Blue Test Strip) betamethasone dipropionate 0.05 % 1 applic topical BID PRN skin 10/09/23 topical cream irritation #45 grams buspirone 7.5 mg tablet 7.5 mg PO BID #60 tabs 03/29/24 levofloxacin 750 mg tablet 750 mg PO DAILY 7 days #7 tabs 04/11/24 Allergies Allergy/AdvReac Type Severity Reaction Status Date / Time No Known Allergies Allergy Verified 04/13/24 07:49 PFSH ED PFSH: Medical History Alcohol use disorder, severe, dependence History of back injury History of back pain History of arthritis History of osteoarthritis History of 2019 novel coronavirus disease (COVID-19) Elevated LFTs History of MRSA infection Type 2 diabetes mellitus with complication Essential hypertension Dyslipidemia Anxiety GERD (gastroesophageal reflux disease) Diabetic neuropathy Colon cancer History of pancreatitis Obesity Surgical History History of colon resection History of appendectomy Family History Other CAD (coronary artery disease) Diabetes Hypertension Denies family history of Anesthesia complication Bleeding disorder Social History Smoking and tobacco/nicotine status: current some day tobacco/nicotine user (CIGARS) smokeless tobacco Smokeless tobacco user: chewing tobacco Second hand smoke exposure: No Alcohol intake: current Alcohol intake frequency: 3 or more drinks per day Alcohol type: beer Substance/Drug Use: never Lives independently: Yes Household members: spouse Marital status: Current occupational status: employed Current occupation: [employer] Current gender identity: Male Course Vital Signs: Vital signs: Vital Signs Temperature 98.6 F 04/13/24 13:01 Pulse Rate 96 04/13/24 13:01 Respiratory Rate 17 04/13/24 13:01 Blood Pressure 126/83 04/13/24 13:01 Pulse Oximetry 97 04/13/24 13:01 Oxygen Delivery Me thod Room Air 04/13/24 13:01 MDM - Extremity (Nontraumatic) Medical Decision Making Patient will be admitted to Dr. Perez with Dr. De La Garza to consult and plan for the OR later today. He has been made NPO and blood cultures were obtained and started on IV abx. Chart reviewed and patient discussed with midlevel. Agree with assessment and plan. Lab Data 04/13/24 09:16 04/13/24 09:16 Laboratory Results WBC 7.52 10^3/uL (3.29-11.43) 04/13/24 09:16 RBC 5.05 10^6/uL (3.85-5.65) 04/13/24 09:16 Hgb 14.30 g/dL (11.27-16.99) 04/13/24 09:16 Hct 43.0 % (37-53) 04/13/24 09:16 MCV 85.1 fl (82-101) 04/13/24 09:16 MCH 28.3 pg (27-33) 04/13/24 09:16 MCHC 33.3 g/dL (30-55) 04/13/24 09:16 RDW 14.3 % (12.1-15.1) 04/13/24 09:16 Plt Count 144 10^3/cmm (157-399) L 04/13/24 09:16 MPV 10.8 fL (7.4-10.4) H 04/13/24 09:16 Neut % (Auto) 71.1 % 04/13/24 09:16 Lymph % (Auto) 16.8 % 04/13/24 09:16 Wheeler % (Auto) 8.4 % 04/13/24 09:16 Eos % (Auto) 2.1 % 04/13/24 09:16 Baso % (Auto) 0.7 % 04/13/24 09:16 Neut # (Auto) 5.35 10^3/uL (1.8-7.7) 04/13/24 09:16 Lymph # (Auto) 1.3 10^3/uL (0.8-4.8) 04/13/24 09:16 Wheeler # (Auto) 0.6 10^3/uL (0.2-0.9) 04/13/24 09:16 Eos # (Auto) 0.2 10^3/uL (0.0-0.8) 04/13/24 09:16 Baso # (Auto) 0.1 10^3/uL (0.0-0.1) 04/13/24 09:16 Nucleated RBC % (auto) 0 % 04/13/24 09:16 Nucleated RBCs # 0.0 /100WBC 04/13/24 09:16 ESR 6 mm/hr (0-10) 04/13/24 09:16 Sodium 133 mmol/L (136-145) L 04/13/24 09:16 Potassium 5.0 mmol/L (3.5-5.1) 04/13/24 09:16 Chloride 97 mmol/L (98-107) L 04/13/24 09:16 Carbon Dioxide 22 mmol/L (22-29) 04/13/24 09:16 Anion Gap 19.0 (5-19) 04/13/24 09:16 BUN 15 mg/dL (6-20) 04/13/24 09:16 Creatinine 1.2 mg/dL (0.7-1.2) 04/13/24 09:16 GFR Calculation 62.9 mL/min (90-130) L 04/13/24 09:16 Glucose 282 mg/dL (65-115) H 04/13/24 09:16 POC Glucose 266 mg/dL (70-110) H 04/13/24 09:27 Estimat Average Glucose 186 04/13/24 09:16 Hemoglobin A1c 8.1 % (4.0-6.0) H 04/13/24 09:16 Calculated Osmolality 287 mOsm/kg (285-295) 04/13/24 09:16 Lactic Acid 2.7 mmol/L (0.5-2.2) H 04/13/24 09:16 Calcium 9.2 mg/dL (8.5-10.5) 04/13/24 09:16 Total Bilirubin 0.5 mg/dL (0.15-1.2) 04/13/24 09:16 AST 19 U/L (0-40) 04/13/24 09:16 ALT 26 U/L (0-41) 04/13/24 09:16 Alkaline Phosphatase 78 U/L (40-130) 04/13/24 09:16 C-Reactive Protein 108.5 mg/L (0.0-4.9) H 04/13/24 09:16 Total Protein 7.5 g/dL (6.6-8.7) 04/13/24 09:16 Albumin 4.4 g/dL (3.5-5.2) 04/13/24 09:16 Globulin 3.1 g/dL (1.3-4.6) 04/13/24 09:16 Discharge Plan Discharge Patient Disposition: Admitted As Inpatient Admit Provider: Jim Perez Clinical Impression: Abscess of right foot, Puncture wound of plantar aspect of right foot with infection Condition: Stable Coding Level of Care Code [employer] Sales Executive for Aaron Ingram
[2024-04-13] MEDS: ondansetron 2 mg/ML SDV 2 mL 4 MG IVP (09:19)
[2024-04-13] MEDS: morphine 4 mg/mL SDV 1 mL IVP ×3 (09:21→19:48)
[2024-04-13] MEDS: piperacillin-tazobactam 3.375 GM in sodium chloride 0.9% (plus) 50 ML IV ×3 (09:31→23:28)
[2024-04-13 09:42] LABS: Erythrocyte Sedimentation Rate 6 mm/hr (0-10)
[2024-04-13 09:43] LABS: Basophils # 0.1 10^3/uL (0.0-0.1); Basophils % 0.7 %; Eosinophils # 0.2 10^3/uL (0.0-0.8); Eosinophils % 2.1 %; Lymphocytes # 1.3 10^3/uL (0.8-4.8); Lymphocytes % 16.8 %; Mean Corpuscular HGB Conc 33.3 g/dL (30-55); Mean Corpuscular Hemoglobin 28.3 pg (27-33); Mean Corpuscular Volume 85.1 fl (82-101); Mean Platelet Volume 10.8 fL (7.4-10.4); Monocytes # 0.6 10^3/uL (0.2-0.9); Monocytes % 8.4 %; Neutrophils # 5.35 10^3/uL (1.8-7.7); Neutrophils % 71.1 %; Nucleated Red Blood Cells % 0 %; Platelet Count 144 10^3/cmm (157-399); Red Blood Count 5.05 10^6/uL (3.85-5.65); Red Cell Distribution Width 14.3 % (12.1-15.1); White Blood Count 7.52 10^3/uL (3.29-11.43)
[2024-04-13 09:46] LABS: Lactic Sepsis W/Reflex 2.7 mmol/L (0.5-2.2)
[2024-04-13 09:47] LABS: Alanine Aminotransferase 26 U/L (0-41); Albumin Level 4.4 g/dL (3.5-5.2); Alkaline Phosphatase 78 U/L (40-130); Aspartate Amino Transferase 19 U/L (0-40); Blood Urea Nitrogen 15 mg/dL (6-20); C Reactive Protein 108.5 mg/L (0.0-4.9); Calcium 9.2 mg/dL (8.5-10.5); Carbon Dioxide 22 mmol/L (22-29); Chloride 97 mmol/L (98-107); Creatinine Clr Calc Pharmacy 98.8192; Globulin 3.1 g/dL (1.3-4.6); Glomerular Filtration Rate 62.9 mL/min (90-130); Glucose 282 mg/dL (65-115); Osmolality Calculated 287 mOsm/kg (285-295); Sodium 133 mmol/L (136-145); Total Bilirubin 0.5 mg/dL (0.15-1.2); Total Protein 7.5 g/dL (6.6-8.7)
--- NOTE | 2024-04-13 09:48 | P.HP_ITS ---
Providers/Chief Complaint 2 Admitting Physician: Jim Perez MD, Hospitalist Primary Care Provider: Carlos Fonseca MD Chief Complaint: Right foot pain (Dr. De La Graza) History of Present Illness Titus Vicente is a 54 year old male with history of stepping on a screw, Friday. He had crocs on when this happened. He reports he went to urgent care, was prescribed Levaquin, and had an x-ray. He immediately started his Levaquin. Since then he has gotten progressively worse, with increasing pain, some erythema and swelling in the foot, and now running up the leg. He had subjective fever last night, and some nausea this morning. He has not had any vomiting. He reports he is not sure what his blood sugar runs. He denies being on any active chemotherapy. He has a past history of colon cancer, treated with chemotherapy around 5 years ago. He received a tetanus immunization, on April 11. Review of Systems 2 General: Reports: 10 or more systems reviewed and unremarkable except in HPI and below Card: Denies: chest pain Resp: Denies: dyspnea GI: Denies: abdominal pain Medications/Allergies Home Medications Medication Instructions Recorded Confirmed Last Taken Type omeprazole 20 mg capsule,delayed 20 mg PO DAILY 06/07/19 04/13/24 04/12/24 History release cetirizine 10 mg tablet (Zyrtec) 10 mg PO DAILY 11/01/19 04/13/24 04/12/24 History diphenhydramine HCl 25 mg capsule 25 mg PO BEDTIME 11/01/19 04/13/24 04/12/24 History (Benadryl) blood sugar diagnostic (OneTouch #50 ea 02/16/20 04/13/24 Unknown Rx Ultra Blue Test Strip) ascorbic acid (vitamin C) 500 mg 500 mg PO DAILY 02/06/23 04/13/24 04/12/24 History tablet (Vitamin C) cholecalciferol (vitamin D3) 50 100 mcg PO DAILY 02/06/23 04/13/24 04/12/24 History mcg (2,000 unit) capsule (Vitamin D3) zinc acetate 50 mg (zinc) capsule 50 mg PO DAILY 02/06/23 04/13/24 04/12/24 History naproxen sodium 220 mg capsule 220 mg PO Q8H PRN Pain 03/27/23 04/13/24 Unknown History (Aleve) betamethasone dipropionate 0.05 % 1 applic topical BID PRN skin 10/09/23 04/13/24 Unknown Rx topical cream irritation #45 grams buspirone 7.5 mg tablet 7.5 mg PO BID #60 tabs 03/29/24 04/13/24 04/13/24 Rx levofloxacin 750 mg tablet 750 mg PO DAILY 7 days #7 tabs 04/11/24 04/13/24 04/13/24 Rx amitriptyline 25 mg tablet 25 mg PO BEDTIME 04/13/24 04/13/24 04/12/24 History atorvastatin 40 mg tablet 40 mg PO BEDTIME 04/13/24 04/13/24 04/12/24 History fenofibrate nanocrystallized 145 145 mg PO QPM 04/13/24 04/13/24 04/12/24 History mg tablet ibuprofen 200 mg tablet 800 mg PO Q6H PRN Pain 04/13/24 04/13/24 Unknown History lisinopril 10 mg tablet 10 mg PO DAILY 04/13/24 04/13/24 04/12/24 History sitagliptin phosphate 100 mg 100 mg PO DAILY 04/13/24 04/13/24 04/12/24 History tablet (Januvia) Allergies Allergy/AdvReac Type Severity Reaction Status Date / Time No Known Allergies Allergy Verified 04/13/24 07:49 PFSH Acute 2 PFSH: Medical History Alcohol use disorder, severe, dependence History of back injury History of back pain History of arthritis History of osteoarthritis History of 2019 novel coronavirus disease (COVID-19) Elevated LFTs History of MRSA infection Type 2 diabetes mellitus with complication Essential hypertension Dyslipidemia Anxiety GERD (gastroesophageal reflux disease) Diabetic neuropathy Colon cancer History of pancreatitis Obesity Surgical History History of colon resection History of appendectomy Family History Other CAD (coronary artery disease) Diabetes Hypertension Denies family history of Anesthesia complication Bleeding disorder Social History (Updated 04/13/24 @ 09:54 by Jim Perez MD) Smoking and tobacco/nicotine status: current some day tobacco/nicotine user (CIGARS) smokeless tobacco Smokeless tobacco user: chewing tobacco Second hand smoke exposure: No Alcohol intake: current Alcohol intake frequency: 3 or more drinks per day Alcohol type: beer Substance/Drug Use: never Lives independently: Yes Household members: spouse Marital status: Current occupational status: employed Current occupation: [employer] Current gender identity: Male Vitals/I&O/Wt Last Vital Signs Temp 98.2 F 04/13/24 09:00 Pulse 105 H 04/13/24 09:34 Resp 16 04/13/24 09:21 BP 166/87 04/13/24 09:34 Pulse Ox 94 04/13/24 09:34 O2 Del Method Room Air 04/13/24 09:34 Weight last 48 hrs Weight 134.717 kg Physical Exam 2 Narrative: General exam, reports pain in the foot HEENT: Atraumatic normocephalic. Oropharynx clear Neck is supple, no lymphadenopathy Cardiovascular tachycardic, no murmur Lungs clear Abdomen soft nontender. Bowel sounds noted exam is deferred Extremities no cyanosis or clubbing. Right foot is swollen with some erythema of the dorsal surface, radiating up to the ankle. On the metatarsal surface, over the metatarsal ridge there is a small black eschar puncture wound that is a little bit tented, likely with some fluctuance underneath. Cap refill is brisk. Skin no rash Neuro no obvious focal deficits. Sepsis: Is patient septic: Yes Focused sepsis exam performed: Yes Date exam was performed: 04/13/24 Time exam was performed: 09:58 Data 04/13/24 09:16 04/13/24 09:16 Other Labs: LFTs are normal CRP 110 Albumin, calcium normal Lactic acid elevated at 2.7 Blood cultures were drawn foot xray I reviewed, demonstrates a little bit of free air distally, foot edema. I do not see any obvious bony changes. Final reading pending. Micro: Microbiology 04/13/24 09:19 Blood Culture - Preliminary Blood SPECIMEN COLLECTED 04/13/24 09:16 Blood Culture - Preliminary Blood SPECIMEN COLLECTED A&P Assessment and plan (1) Sepsis: Concern of sepsis. qSOFA score currently not elevated, but patient reports fever at home, had heart rate of 117 on arrival, clear indication of infection with right foot abscess with streaking up legs, elevated lactic acid, immune deficiency state with prior history of colon cancer with chemo and current diabetes. Although not hypotensive, safer to err on side of treatment and full sepsis bolus will be given, and then follow clinically. Blood cultures have been drawn. Vancomycin and Zosyn will be continued. Repeat reflex lactic acid. (2) Abscess of right foot: Podiatry consult N.p.o. Antibiotics as above Pain control (3) Cellulitis of foot: See above (4) Type 2 diabetes mellitus with complication: No evidence of DKA Sliding scale insulin Consistent carb diet when it is started Plan Other medical problems as outlined in past medical history Attestations 2 Medical Necessity Statement*: Will need greater than 2 midnight stay for evaluation and treatment of sepsis, right foot abscess and cellulitis. Diagnoses Sepsis A41.9 Abscess of right foot L02.611 Cellulitis of foot L03.119 Type 2 diabetes mellitus with complication E11.8 Time Spent (min) 64
[2024-04-13 09:53] LABS: Glucose Point of Care 266 mg/dL (70-110)
[2024-04-13] MEDS: vancomycin 1,250 MG/250 ML PIGGYBACK 166.67 MG IV ×2 (10:25→19:48)
[2024-04-13] MEDS: sodium chloride 0.9% 2,328 ML 2328 ML IV (10:26)
[2024-04-13 10:35] LABS: Estmated Average Glucose 186; Hemoglobin A1C 8.1 % (4.0-6.0)
[2024-04-13 11:12] LABS: Reflex Lactate Order REFLEX LACTIC ORDERD
[2024-04-13 12:18] LABS: Lactic Acid level (Lactate) 2.1 mmol/L (0.5-2.2)
--- NOTE | 2024-04-13 12:19 | P.CONIM_ITS ---
Providers/Reason For Consult 2 Consulting Physician/Specialty*: Dr. Hudson De La Garza DPM Reason for Consult*: Right foot abscess Attending Physician: Jim Perez MD Primary Care Provider: Carlos Fonseca MD History of Present Illness History of Present Illness Titus Vicente is a 54 year old male who presented to the outpatient podiatry clinic this morning with concern over right foot infection. Patient stepped on a screw a few days ago. He was seen in the walk-in clinic and was given prescription for Levaquin and given a tetanus shot. However, patient's pain in his right foot has continued to worsen. He states that the right foot is swollen and extremely tender to touch. This still painful he is unable to walk on it. He was sent directly to the emergency department from the podiatry clinic for further workup, evaluation admission with IV antibiotics and surgical intervention. Review of Systems 2 General: Reports: 10 or more systems reviewed and unremarkable except in HPI and below Const: Denies: fever(s), chills, body aches or change in appetite Eyes: Denies: change in vision or blurry vision Card: Denies: chest pain, palpitations or irregular heart rhythm Resp: Denies: dyspnea GI: Denies: abdominal pain, nausea, vomiting or diarrhea Musc: Reports: joint stiffness Skin/Breast: Reports: non-healing lesions and lesions Neuro: Reports: numbness in extremities Medications/Allergies Home Medications Medication Instructions Recorded Confirmed Last Taken Type omeprazole 20 mg capsule,delayed 20 mg PO DAILY 06/07/19 04/13/24 04/12/24 History release cetirizine 10 mg tablet (Zyrtec) 10 mg PO DAILY 11/01/19 04/13/24 04/12/24 History diphenhydramine HCl 25 mg capsule 25 mg PO BEDTIME 11/01/19 04/13/24 04/12/24 History (Benadryl) blood sugar diagnostic (OneTouch #50 ea 02/16/20 04/13/24 Unknown Rx Ultra Blue Test Strip) ascorbic acid (vitamin C) 500 mg 500 mg PO DAILY 02/06/23 04/13/24 04/12/24 History tablet (Vitamin C) cholecalciferol (vitamin D3) 50 100 mcg PO DAILY 02/06/23 04/13/24 04/12/24 History mcg (2,000 unit) capsule (Vitamin D3) zinc acetate 50 mg (zinc) capsule 50 mg PO DAILY 02/06/23 04/13/24 04/12/24 History naproxen sodium 220 mg capsule 220 mg PO Q8H PRN Pain 03/27/23 04/13/24 Unknown History (Aleve) betamethasone dipropionate 0.05 % 1 applic topical BID PRN skin 10/09/23 04/13/24 Unknown Rx topical cream irritation #45 grams buspirone 7.5 mg tablet 7.5 mg PO BID #60 tabs 03/29/24 04/13/24 04/13/24 Rx levofloxacin 750 mg tablet 750 mg PO DAILY 7 days #7 tabs 04/11/24 04/13/24 04/13/24 Rx amitriptyline 25 mg tablet 25 mg PO BEDTIME 04/13/24 04/13/24 04/12/24 History atorvastatin 40 mg tablet 40 mg PO BEDTIME 04/13/24 04/13/24 04/12/24 History fenofibrate nanocrystallized 145 145 mg PO QPM 04/13/24 04/13/24 04/12/24 History mg tablet ibuprofen 200 mg tablet 800 mg PO Q6H PRN Pain 04/13/24 04/13/24 Unknown History lisinopril 10 mg tablet 10 mg PO DAILY 04/13/24 04/13/24 04/12/24 History sitagliptin phosphate 100 mg 100 mg PO DAILY 04/13/24 04/13/24 04/12/24 History tablet (Januvia) Allergies Allergy/AdvReac Type Severity Reaction Status Date / Time No Known Allergies Allergy Verified 04/13/24 07:49 Current Medications Generic Name Dose Route Start Last Admin Trade Name Freq PRN Reason Stop Dose Admin Buspirone HCl 7.5 mg 04/13/24 18:00 04/13/24 17:13 Buspirone 10 Mg Tablet PO 7.5 mg BID PASTORA Administration Fenofibrate 145 mg 04/13/24 18:00 04/13/24 17:13 Fenofibrate 145 Mg Tablet PO 145 mg QPM PASTORA Administration Sodium Chloride 1,000 mls @ 100 mls/hr 04/13/24 12:56 04/13/24 17:11 Sodium Chloride 0.9% IV 04/14/24 01:13 Not Given .Q10H PASTORA Piperacillin Sod/Tazobactam 50 mls @ 12.5 mls/hr 04/13/24 15:30 04/13/24 17:12 Sod 3.375 gm/ Sodium Chloride IV 12.5 mls/hr Q8H PASTORA Administration Insulin Human Lispro 0 unit 04/13/24 12:56 04/13/24 17:52 Insulin Lispro 100 Unit/1 Ml SUBCUT 4 unit WM&BEDTIME PASTORA Administration Protocol Oxycodone HCl 5 mg 04/13/24 12:56 04/13/24 17:52 Oxycodone 5 Mg Ir Tab/Cap PO 5 mg Q6H PRN Administration SEVERE PAIN PFSH Acute 2 PFSH: Medical History Alcohol use disorder, severe, dependence History of back injury History of back pain History of arthritis History of osteoarthritis History of 2019 novel coronavirus disease (COVID-19) Elevated LFTs History of MRSA infection Type 2 diabetes mellitus with complication Essential hypertension Dyslipidemia Anxiety GERD (gastroesophageal reflux disease) Diabetic neuropathy Colon cancer History of pancreatitis Obesity Surgical History History of colon resection History of appendectomy Family History Other CAD (coronary artery disease) Diabetes Hypertension Denies family history of Anesthesia complication Bleeding disorder Social History Smoking and tobacco/nicotine status: current some day tobacco/nicotine user (CIGARS) smokeless tobacco Smokeless tobacco user: chewing tobacco Second hand smoke exposure: No Alcohol intake: current Alcohol intake frequency: 3 or more drinks per day Alcohol type: beer Substance/Drug Use: never Lives independently: Yes Household members: spouse Marital status: Current occupational status: employed Current occupation: [employer] Current gender identity: Male Vitals/I&O/Wt Last Vital Signs Temp 100.8 F H 04/13/24 18:19 Pulse 114 H 04/13/24 18:19 Resp 18 04/13/24 18:19 BP 161/97 04/13/24 18:19 Pulse Ox 96 04/13/24 18:19 O2 Del Method Room Air 04/13/24 18:19 04/13/24 04/13/24 04/13/24 06:59 14:59 22:59 Intake Total 50 / 50 290 / 340 Output Total 2 / 2 Balance 50 / 50 288 / 338 Weight last 48 hrs Weight 297 lb Physical Exam 2 Narrative: BELOW IS A FOCUSED LOWER EXTREMITY EXAM GENERAL: A&O x 3 VASCULAR: DP/PT pulses palpable 2/4 with CFT intact, <3seconds to distal digits. Edema right forefoot DERMATOLOGICAL: Skin turgor and temperature is within normal limits. No interdigital maceration noted. Puncture wound plantar aspect of right foot intermetatarsal space between the third and fourth metatarsals. Surrounding erythema enveloping the entire forefoot streaking proximally into the medial longitudinal arch. MUSCULOSKELETAL: Pain with palpation of right forefoot surrounding puncture wound as well as third and fourth metatarsal heads. NEUROLOGICAL: Neurological sensation to the affected foot and ankle is present through L4-S1 dermatomes with no hyper/hypoesthesias, negative Tinel or Valleix's sign IMAGING: Three-view x-rays of right foot taken at today's visit were first interpreted by me which show accumulation of gas at the level of the third metatarsal phalangeal joint with increase of tissue density Data 04/13/24 09:16 04/13/24 09:16 Micro: Microbiology 04/13/24 09:19 Blood Culture - Preliminary Blood SPECIMEN COLLECTED 04/13/24 09:16 Blood Culture - Preliminary Blood SPECIMEN COLLECTED A&P Assessment and plan (1) Sepsis: (2) Abscess of right foot: (3) Cellulitis of foot: (4) Type 2 diabetes mellitus with complication: Plan -Right foot abscess -Labs and vitals reviewed -WBC 7.52 -ESR 6 -CRP 108.5 -HR 114 -RR 16 -Tmax 98.6 -Cultures pending -Abx Vanco/Zosyn -Diet: N.p.o. for procedure this afternoon 1430 (04/13/2024) -Patient will go to the operating room for delayed primary closure. Cultures will be obtained intraoperatively -Pain Mgmt: Per primary team -Weight bearing: Weightbearing to right heel for transfers only -Dressings: Leave surgical dressing clean, dry, intact -Continue current Abx therapy until ID and Sensitivity results -Trend labs -Discharge plan: To be determined -Podiatry will continue to round on patient daily and provide recommendations Coding Level of Care Code Acute Code for Chg Fwd Diagnoses Sepsis A41.9 Abscess of right foot L02.611 Cellulitis of foot L03.119 Type 2 diabetes mellitus with complication E11.8
--- NOTE | 2024-04-13 12:49 | ANES.PREANE2 ---
Pre-Anesthetic Assessment Height/Weight: Height 6 ft Weight 297 lb Temp Pulse Resp BP Pulse Ox O2 Del Method 98.2 F 95 18 113/64 96 Room Air 04/13/24 09:00 04/13/24 12:00 04/13/24 12:00 04/13/24 12:00 04/13/24 12:00 04/13/24 12:00 Preop Diagnosis: Osteomyelitis Operation Date: 04/13/24 14:05 Proposed Procedures p Incision And Drainage(Right) - Hudson De La Garza DPM Was Beta [place] taken within 24 hours: N/A Was Clonidine taken within 24 hours: N/A Social No alcohol and No tobacco Exam alert, oriented x 3, clear to auscultation bilaterally and regular rate & rhythm Airway Submandibular: within normal limits Cervical ROM: within normal limits Mallampati: Class IV Dentition: full Comments: Comments: Denies any loose teeth, large tongue Anesthetic Plan ASA status: 3 Anesthesia: General Other: Patient denies any issues with anesthesia in the past NPO since 6 AM, ate sausage at 6 AM Patient has a foot infection, concern for abscess History of GERD on omeprazole Hypertension on lisinopril Type 2 diabetes on Januvia p.o. last taken yesterday. BS 266 today Labs 04/13/2024 reviewed and acceptable for procedure. Lactic acid 2.7, vitals currently stable Plan for GETA given recent Januvia intake Medications/Allergies Home Medications Medication Instructions Recorded Confirmed Last Taken Type omeprazole 20 mg capsule,delayed 20 mg PO DAILY 06/07/19 04/13/24 04/12/24 History release cetirizine 10 mg tablet (Zyrtec) 10 mg PO DAILY 11/01/19 04/13/24 04/12/24 History diphenhydramine HCl 25 mg capsule 25 mg PO BEDTIME 11/01/19 04/13/24 04/12/24 History (Benadryl) blood sugar diagnostic (OneTouch #50 ea 02/16/20 04/13/24 Unknown Rx Ultra Blue Test Strip) ascorbic acid (vitamin C) 500 mg 500 mg PO DAILY 02/06/23 04/13/24 04/12/24 History tablet (Vitamin C) cholecalciferol (vitamin D3) 50 100 mcg PO DAILY 02/06/23 04/13/24 04/12/24 History mcg (2,000 unit) capsule (Vitamin D3) zinc acetate 50 mg (zinc) capsule 50 mg PO DAILY 02/06/23 04/13/24 04/12/24 History naproxen sodium 220 mg capsule 220 mg PO Q8H PRN Pain 03/27/23 04/13/24 Unknown History (Aleve) betamethasone dipropionate 0.05 % 1 applic topical BID PRN skin 10/09/23 04/13/24 Unknown Rx topical cream irritation #45 grams buspirone 7.5 mg tablet 7.5 mg PO BID #60 tabs 03/29/24 04/13/24 04/13/24 Rx levofloxacin 750 mg tablet 750 mg PO DAILY 7 days #7 tabs 04/11/24 04/13/24 04/13/24 Rx amitriptyline 25 mg tablet 25 mg PO BEDTIME 04/13/24 04/13/24 04/12/24 History atorvastatin 40 mg tablet 40 mg PO BEDTIME 04/13/24 04/13/24 04/12/24 History fenofibrate nanocrystallized 145 145 mg PO QPM 04/13/24 04/13/24 04/12/24 History mg tablet ibuprofen 200 mg tablet 800 mg PO Q6H PRN Pain 04/13/24 04/13/24 Unknown History lisinopril 10 mg tablet 10 mg PO DAILY 04/13/24 04/13/24 04/12/24 History sitagliptin phosphate 100 mg 100 mg PO DAILY 04/13/24 04/13/24 04/12/24 History tablet (Januvia) Allergies Allergy/AdvReac Type Severity Reaction Status Date / Time No Known Allergies Allergy Verified 04/13/24 07:49 [facility] Anesthesia Medical History Alcohol use disorder, severe, dependence History of back injury History of back pain History of arthritis History of osteoarthritis History of 2019 novel coronavirus disease (COVID-19) Elevated LFTs History of MRSA infection Type 2 diabetes mellitus with complication Essential hypertension Dyslipidemia Anxiety GERD (gastroesophageal reflux disease) Diabetic neuropathy Colon cancer History of pancreatitis Obesity Surgical History History of colon resection History of appendectomy Family History Other CAD (coronary artery disease) Diabetes Hypertension Denies family history of Anesthesia complication Bleeding disorder Social History Smoking and tobacco/nicotine status: current some day tobacco/nicotine user (CIGARS) smokeless tobacco Smokeless tobacco user: chewing tobacco Second hand smoke exposure: No Alcohol intake: current Alcohol intake frequency: 3 or more drinks per day Alcohol type: beer Substance/Drug Use: never Lives independently: Yes Household members: spouse Marital status: Current occupational status: employed Current occupation: [employer] Current gender identity: Male Data Anesthesia 04/13/24 09:16 04/13/24 09:16 Short CBC 04/13/24 Range/Units 09:16 WBC 7.52 (3.29-11.43) 10^3/uL Hgb 14.30 (11.27-16.99) g/dL Hct 43.0 (37-53) % MCV 85.1 (82-101) fl Plt Count 144 L (157-399) 10^3/cmm Neut % (Auto) 71.1 % Neut # (Auto) 5.35 (1.8-7.7) 10^3/uL BMP 04/13/24 09:16 Sodium 133 L Potassium 5.0 Chloride 97 L Carbon Dioxide 22 BUN 15 Creatinine 1.2 Glucose 282 H Calcium 9.2 Liver Function 04/13/24 Range/Units 09:16 Total Bilirubin 0.5 (0.15-1.2) mg/dL AST 19 (0-40) U/L ALT 26 (0-41) U/L Alkaline Phosphatase 78 (40-130) U/L Albumin 4.4 (3.5-5.2) g/dL Coags 04/13/24 09:16 ESR 6 C-Reactive Protein 108.5 H Microbiology 04/13/24 09:19 Blood Culture - Preliminary Blood SPECIMEN COLLECTED 04/13/24 09:16 Blood Culture - Preliminary Blood SPECIMEN COLLECTED Cardiac Studies: No Data to Display
--- NOTE | 2024-04-13 13:04 | P.ENSEP_ITS ---
Sepsis Event Note Inpt Quick SOFA Score Sepsis Screen No Definite Risk 04/13/24 12:00 Respiratory Rate 17 breaths/min (12 - 18) 04/13/24 13:01 Blood Pressure 126/83 mmHg 04/13/24 13:01 Sukhdev Coma Scale Score 15 04/13/24 10:48 Quick SOFA Score 0 04/13/24 12:00 Respiratory Rate: 17 Blood Pressure: 126/83 Sukhdev Coma Scale: 15 qSOFA Score: 0 If qSOFA score 2 or greater, continue SOFA Score: Sukhdev Coma Scale Score 15 04/13/24 10:48 Blood Pressure Mean 97 mmHg 04/13/24 13:01 Total Bilirubin 0.5 mg/dL (0.15-1.2) 04/13/24 09:16 Platelet Count 144 10^3/cmm (157-399) L 04/13/24 09:16 Creatinine 1.2 mg/dL (0.7-1.2) 04/13/24 09:16 Blood Pressure Mean: 97 Bilirubin (mg/dl): 0.5 Platelets (x10?/ml): 144 Creatinine (mg/dl): 1.2 Evaluation Current stage of sepsis: sepsis Sepsis stage criteria used: [facility] Sep-1 and Sepsis-3 Focused Exam Vital signs: Temp Pulse Resp BP Pulse Ox O2 Del Method 04/13/24 13:01 98.6 F 96 17 126/83 97 Room Air 04/13/24 12:53 96 113/69 95 04/13/24 12:00 95 18 113/64 96 Room Air 04/13/24 10:48 99 140/97 95 Room Air 04/13/24 09:34 105 H 166/87 94 Room Air 04/13/24 09:21 16 04/13/24 09:00 98.2 F 117 H 18 166/87 96 Room Air Respiratory exam: CTA bilaterally Cardiovascular exam: regular rate Capillary refill: < 3 Seconds Peripheral pulse strength: 3+ Normal Peripheral pulse location: Pedal Details: Repeat perfusion exam. Came in with sepsis, early. Already much improved. Heart rate is now normal, less than 100. No fever. Blood pressure maintained. Repeat lactic acid is now normal. Date exam was performed: 04/13/24 Time exam was performed: 13:05 Problem List (1) Sepsis: (2) Abscess of right foot: (3) Cellulitis of foot: (4) Type 2 diabetes mellitus with complication:
--- NOTE | 2024-04-13 13:33 | PHA.VACGOAL ---
Vancomycin Goal - Goal Vancomycin Goal:: 15-20 mg/L Vancomycin Indication:: Other (SEPSIS) - Therapy Current therapy:: Pip/Tazo Day of therpy:: Day 1 of [] Actual body weight (kg): 297 lb - Data Labs: WBC 7.52 10^3/uL (3.29-11.43) 04/13/24 09:16 RBC 5.05 10^6/uL (3.85-5.65) 04/13/24 09:16 Hgb 14.30 g/dL (11.27-16.99) 04/13/24 09:16 Hct 43.0 % (37-53) 04/13/24 09:16 MCV 85.1 fl (82-101) 04/13/24 09:16 MCH 28.3 pg (27-33) 04/13/24 09:16 MCHC 33.3 g/dL (30-55) 04/13/24 09:16 RDW 14.3 % (12.1-15.1) 04/13/24 09:16 Sodium 133 mmol/L (136-145) L 04/13/24 09:16 Potassium 5.0 mmol/L (3.5-5.1) 04/13/24 09:16 Chloride 97 mmol/L (98-107) L 04/13/24 09:16 Carbon Dioxide 22 mmol/L (22-29) 04/13/24 09:16 Anion Gap 19.0 (5-19) 04/13/24 09:16 BUN 15 mg/dL (6-20) 04/13/24 09:16 Creatinine 1.2 mg/dL (0.7-1.2) 04/13/24 09:16 GFR Calculation 62.9 mL/min (90-130) L 04/13/24 09:16 Last dialysis session:: N/A Treatment plan:: new consult Regimen:: INITIAL MAINTENANCE DOSE OF 1250 MG Q8H PER DOSING PROTOCOL Follow up:: WILL CONTINUE TO FOLLOW UP AND MONITOR DAILY
[2024-04-13 14:05] LABS: Bilirubin Urine Negative (Negative); Blood Urine Negative (Negative); Glucose Urine UA 3+ (Normal); Ketones Urine Trace (Negative); Leukocyte Esterase Urine Negative (Negative); Nitrate Urine Negative (Negative); Protein Urine Trace (Negative); Specific Gravity, Urine 1.027 (1.005-1.030); Urine Appearance Clear (CLEAR); Urine Color Yellow (Yellow); Urobilinogen Urine 0.2 mg/dL (Negative); pH Urine 5.5 (5-7)
[2024-04-13 14:10] LABS: Add Urine Microscopic? YES; Bacteria Urine None Seen /hpf; Hyaline Casts Urine 0.81 /lpf; RBC Urine 0-2 /hpf (0-2); Squamous Epithelial Cell Urine 0-5 /hpf (0-5); WBC Urine 0-5 /hpf (0-5)
--- NOTE | 2024-04-13 14:34 | W.PM.OPSUD ---
Surgery/Procedure H&P Update DATE OF PROCEDURE: April 13, 2024 DATE H&P PERFORMED: 04/13/24 H&P UPDATE INFORMATION: I have reviewed H&P completed within last 30 days, I have examined patient prior to procedure, No changes to prior documentation and [place] [facility] [place] indicated PREOP DIAGNOSIS: Osteomyelitis PLANNED PROCEDURE: Operation Date: 04/13/24 14:05 Proposed Procedures p Incision And Drainage(Right) - Hudson De La Garza DPM
[2024-04-13] MEDS: BUPivacaine 0.5% INJ 30 mL INJECTION (15:06)
--- NOTE | 2024-04-13 15:37 | P.BOP_ITS ---
Date of procedure: 04/13/2020 Surgeon name: Dr. Hudson De La Garza D.P.M. Power Press Supervisor(s) name(s): Rodney Procedure(s) performed: Right foot incision and drainage Description of findings: Abscess right foot Estimated blood loss: 5 cc Tourniquet time: No tourniquet used Specimen(s) removed: Cultures aerobic and anaerobic Post-operative diagnosis: Abscess right foot
--- NOTE | 2024-04-13 15:58 | ANE.PACU2 ---
Inpatient post-anesthesia follow up: Airway intact: Yes Vital signs: Temperature 99.5 F Pulse Rate 105 Respiratory Rate 16 Blood Pressure 144/92 Pulse Oximetry 94 Oxygen Delivery Me thod Room Air Oxygen Flow Rate Fraction of Inspir ed Oxygen Hydration adequate: Yes Nausea and vomiting: No Pain level: 1 Mental status: Baseline
[2024-04-13 17:09] LABS: Glucose Point of Care 191 mg/dL (70-110)
[2024-04-13] MEDS: BuSPIRONE 10 mg Tablet 7.5 MG PO (17:13)
[2024-04-13] MEDS: fenofibrate 145 mg Tablet PO (17:13)
[2024-04-13] MEDS: insulin lispro 100 unit/1 mL SUBCUT ×2 (17:52→21:18)
[2024-04-13] MEDS: oxyCODONE 5 mg IR Tab/Cap PO (17:52)
--- NOTE | 2024-04-13 18:27 | PM.OP ---
Operative Report Date of procedure: April 13, 2024 Surgeon: Hudson De La Garza DPM Procedure: Date of procedure: 04/13/2024 Pre-op diagnosis: Right foot abscess Post-op diagnosis: Right foot abscess Post-op findings: Right foot abscess within the right third intermetatarsal space tracking to dorsum of foot Procedure done: Incision and drainage right foot multiple areas CPT 71696 Implants: None Specimens removed: Cultures aerobic and anaerobic Surgeon: Dr. Hudson De La Garza DPM Surveying Crew Stake Runner: Rodney Estimated blood loss: 5 cc Tourniquet time: No tourniquet used Complications: No complications The patient presents with a severe foot infection involving right foot, characterized by erythema, swelling, and drainage. The infection is complicated by underlying conditions, including diabetes, which have contributed to the progression of the infection despite conservative management. Preoperative imaging and laboratory results indicate abscess with gas producing organism, necessitating surgical intervention. The planned procedure is intended to address the infection, debride necrotic tissue, and, if necessary, assess the viability of surrounding structures to prevent further complications. The patient has been NPO since midnight. The history has been reviewed and the history and physical is current. The signed consent was confirmed and placed in the patient chart. Patient imaging has been reviewed and is consistent with the diagnosis. Under mild sedation, the patient was brought into the operating room and left on the gurney in the supine position. Patient is receiving antibiotics around the clock on the floor, Therefore, additional antibiotic prophylaxix was not administered. General sedation was then performed by the anesthesiateam. A local field block was performed using 0.5% Marcaine plain. The operative extremity was then prepped and draped in the usual fashion. After prep, the following procedure was then performed. Attention was directed to the plantar aspect of the right foot where a puncture wound was noted to the plantar aspect of the third intermetatarsal space. This had a dark and discolored area. A #15 blade was used to make a stab incision over this discolored area. There was an immediate extravasation of purulent material. Cultures both aerobic and anaerobic were taken of the fluid at this point. A mosquito hemostat was used to dissect through subcutaneous, superficial and deep fascia into the intermetatarsal space. Abscess accumulation was noted to be in the third intermetatarsal space. A Victoria was used to explore the area further and it was noted to probe to the dorsum of the foot. #15 blade was used to make a second stab incision on the dorsum of the right foot. Blunt dissection was carried down through subcutaneous superficial fascia and deep fascia using a mosquito hemostat. With exposure dorsally and plantarly cystoscopy tubing was used to irrigate the area with 2 L of sterile saline. The foot was expressed and no further purulence was visualized. The site of abscess was noted to not track proximally beyond the third intermetatarsal space. The wounds were packed with quarter inch iodoform packing gauze before being dressed with 4 x 4 gauze, ABD pad, Kerlix, Adalberto. The patient tolerated the procedure and anesthesia well and without complication. The patient was transported from the operating room to the recovery room with vital signs stable and vascular status intact to all digits of the right foot. Thepatient was instructed to remain minimally weightbearing for transfers only to the operative extremity, to keep surgical dressing clean, dry and intact. The patient will be transferred back to the floor once anesthesia criteria is met. I will continue to round on and follow the patient in the inpatientsetting and provide recommendations to stabilize the patient for discharge. Based on response to today's procedure, patient will likely undergo delayed primary closure at bedside tomorrow AM. Patient will likely be discharged home on PO antibiotics
--- NOTE | 2024-04-13 18:56 | ECG_ITS ---
[email or web address] Date: 2024-04[facility]13 Pat Name: Titus Vicente Department: Room: 266 Gender: Male Applied Technologist: : 1970 Requested By: Jim Salmon Order Number: [id number] Smitha MD: Saniya Carrera M.D. Measurements Intervals [place] Rate: 116 P: 20 TN: 124 QRS: 15 QRSD: 93 T: 61 QT: 335 QTc: 467 Interpretive Statements SINUS TACHYCARDIA ABNORMAL RHYTHM ECG Compared to ECG 02/09/2018 17:25:53 Ventricular premature complex(es) no longer present Atrial abnormality no longer present T-wave abnormality no longer present Electronically Signed On 04-15-2024 21:15:46 WET INSPECTOR [employer]ICAL GLASS by Saniya Carrera M.D. [id number] f
--- NOTE | 2024-04-13 19:05 | PC.NURSE ---
pts temp 100.8 dr freitas notified at approx. 1845 pt complained of chest tightness, dr freitas notified and ekg and trop series ordered
[2024-04-13 19:36] LABS: Troponin(5th) Baseline 14 ng/L (0-15)
[2024-04-13] MEDS: atorvastatin 40 mg Tablet PO (19:48)
[2024-04-13] MEDS: amitriptyline 25 mg Tablet PO (19:48)
[2024-04-13] MEDS: enoxaparin 40 mg/0.4 mL Syringe SUBCUT (19:48)
--- NOTE | 2024-04-13 20:58 | ECG_ITS ---
[facility] Date: 2024-04-13 Pat Name: Titus Vicente Department: Room: 266 Gender: Male Chefs: : 1970 Requested By: Jim Salmon Order Number: [id number] Smitha MD: Saniya Carrera M.D. Measurements Intervals [place] Rate: 120 P: 41 [place]: 151 QRS: 2 QRSD: 94 T: 77 QT: 322 QTc: 455 Interpretive Statements SINUS TACHYCARDIA LOW QRS VOLTAGE IN PRECORDIAL LEADS [QRS DEFLECTION < 1.0 mV IN CHEST LEADS] NONSPECIFIC T-WAVE ABNORMALITY ABNORMAL RHYTHM ECG Compared to ECG 02/09/2018 17:25:53 Low QRS voltage now present Ventricular premature complex(es) no longer present Atrial abnormality no longer present T-wave abnormality still present Electronically Signed On 04-17-2024 16:11:59 HOTEL MAINTENANCE ENGINEER by Saniya Carrera M.D. [id number]
[2024-04-13 21:02] LABS: Glucose Point of Care 271 mg/dL (70-110)
[2024-04-13 21:45] LABS: Troponin 5 2HR 13.84 ng/L (0-15)
[2024-04-13 21:46] LABS: Troponin 5 2HR Delta -0.16 ABS# (0-10)
[2024-04-13] MEDS: acetaminophen 325 mg Tablet 650 MG PO (23:28)
[2024-04-14] VITALS (12 sets, daily range): BP systolic 122–144; BP diastolic 70–92; PULSE 98–106; RESP 16–20; TEMP 36.9–37.5; O2SAT 91–94
[2024-04-14 01:30] LABS: Basophils # 0.1 10^3/uL (0.0-0.1); Basophils % 0.5 %; Eosinophils # 0.1 10^3/uL (0.0-0.8); Eosinophils % 0.7 %; Hematocrit 37.9 % (37-53); Lymphocytes # 1.5 10^3/uL (0.8-4.8); Lymphocytes % 15.8 %; Mean Corpuscular HGB Conc 33.5 g/dL (30-55); Mean Corpuscular Hemoglobin 28.6 pg (27-33); Mean Corpuscular Volume 85.4 fl (82-101); Mean Platelet Volume 10.5 fL (7.4-10.4); Monocytes # 0.9 10^3/uL (0.2-0.9); Monocytes % 9.7 %; Neutrophils # 6.79 10^3/uL (1.8-7.7); Neutrophils % 72.4 %; Nucleated Red Blood Cells % 0 %; Platelet Count 149 10^3/cmm (157-399); Red Blood Count 4.44 10^6/uL (3.85-5.65); Red Cell Distribution Width 14.5 % (12.1-15.1); White Blood Count 9.38 10^3/uL (3.29-11.43)
[2024-04-14 01:38] LABS: Troponin 5 6HR 13.15 ng/L (0-15)
[2024-04-14 01:40] LABS: Alanine Aminotransferase 21 U/L (0-41); Albumin Level 4.1 g/dL (3.5-5.2); Alkaline Phosphatase 72 U/L (40-130); Anion Gap 18.3 (5-19); Aspartate Amino Transferase 20 U/L (0-40); Blood Urea Nitrogen 13 mg/dL (6-20); Calcium 8.2 mg/dL (8.5-10.5); Carbon Dioxide 20 mmol/L (22-29); Chloride 98 mmol/L (98-107); Globulin 2.2 g/dL (1.3-4.6); Glomerular Filtration Rate 77.6 mL/min (90-130); Glucose 227 mg/dL (65-115); Magnesium 1.5 mg/dL (1.7-2.3); Osmolality Calculated 281 mOsm/kg (285-295); Potassium 4.3 mmol/L (3.5-5.1); Sodium 132 mmol/L (136-145); Total Bilirubin 0.5 mg/dL (0.15-1.2); Total Protein 6.3 g/dL (6.6-8.7)
[2024-04-14 01:41] LABS: Troponin 5 6HR Delta -0.85 ng/L (0-12)
[2024-04-14] MEDS: vancomycin 1,250 MG/250 ML PIGGYBACK 166.67 MG IV (02:36)
[2024-04-14] MEDS: morphine 4 mg/mL SDV 1 mL IVP ×5 (04:06→21:48)
--- NOTE | 2024-04-14 04:31 | ECG_ITS ---
[facility] Test Date: 2024-04-14 Pat Name: Titus Vicente Department: Room: 266 Gender: Male Geological Manager: : 1970 Requested By: Jim Salmon Order Number: [id number] Smitha MD: Saniya Carrera M.D. Measurements Intervals [place] Rate: 96 P: 24 [place]: 127 QRS: -1 QRSD: 100 T: 60 QT: 355 QTc: 450 Interpretive Statements SINUS RHYTHM NONSPECIFIC T-WAVE ABNORMALITY Compared to ECG 04/13/2024 21:48:48 Sinus tachycardia no longer present T-wave abnormality still present Electronically Signed On 04-17-2024 16:12:04 INSPECTOR SHELLS by Saniya Carrera M.D. [id number]
[2024-04-14 06:29] LABS: Glucose Point of Care 262 mg/dL (70-110)
--- NOTE | 2024-04-14 07:54 | PM.PN ---
Subjective Subjective: Patient seen at bedside this morning. Resting comfortably. Patient states that right foot was painful overnight. This may be attributed to the packing. Patient also spiked a fever of 101 overnight. Patient was also tachycardic. Vitals/I&O/Wt Last Vital Signs Temp 98.4 F 04/14/24 04:00 Pulse 106 H 04/14/24 04:00 Resp 18 04/14/24 04:06 BP 122/70 04/14/24 04:00 Pulse Ox 91 04/14/24 04:00 O2 Del Method Room Air 04/14/24 04:00 04/13/24 04/14/24 04/14/24 22:59 06:59 14:59 Intake Total 3168 / 3218 300 / 3518 Output Total 2 / 2 Balance 3166 / 3216 300 / 3516 Weight last 48 hrs Weight 300 lb 7 oz Weight 297 lb Physical Exam Narrative: BELOW IS A FOCUSED LOWER EXTREMITY EXAM GENERAL: A&O x 3 VASCULAR: DP/PT pulses palpable 2/4 with CFT intact, <3seconds to distal digits. Edema right forefoot DERMATOLOGICAL: Surgical packing present to plantar and dorsal incisional wounds of right foot. Erythema much improved in comparison to previous visit. Still surrounding incision sites and enveloping fourth digit right foot MUSCULOSKELETAL: Persistent pain with palpation of plantar right foot surrounding incision NEUROLOGICAL: Neurological sensation to the affected foot and ankle is present through L4-S1 dermatomes with no hyper/hypoesthesias, negative Tinel or Valleix's sign IMAGING: Three-view x-rays of right foot taken at today's visit were first interpreted by me which show accumulation of gas at the level of the third metatarsal phalangeal joint with increase of tissue density Data 04/14/24 01:04 04/14/24 01:04 Micro: Microbiology 04/13/24 09:19 Blood Culture - Preliminary Blood SPECIMEN COLLECTED 04/13/24 09:16 Blood Culture - Preliminary Blood SPECIMEN COLLECTED A&P Assessment and plan (1) Sepsis: (2) Abscess of right foot: (3) Cellulitis of foot: (4) Type 2 diabetes mellitus with complication: Plan -Right foot abscess -Labs and vitals reviewed -WBC 9.38 -ESR 6 -CRP 108.5 -HR 121 -RR 19 -Tmax 101.3 -Cultures preliminary gram-positive rods -Abx Vanco/Zosyn -Diet: Okay for diet -Status post right foot incision and drainage (DOS 04/13/2024). Erythema right foot and leg improved from yesterday. However, erythema persists around incision sites and right foot fourth digit. Overnight fever and elevated heart rate are concerning for persistent infection of right foot. MRI of right foot with and without contrast ordered to assess for persistent abscess. Continue to monitor cultures. Preliminary showing gram-positive rods -Pain Mgmt: Per primary team -Weight bearing: Weightbearing to right heel for transfers only -Dressings: Leave surgical dressing clean, dry, intact -Continue current Abx therapy until ID and Sensitivity results -Trend labs -Discharge plan: To be determined -Podiatry will continue to round on patient daily and provide recommendations Attestations Medical Necessity Statement*: Status post right foot incision and drainage. MRI pending. Cultures pending continue IV antibiotics Coding Level of Care Code Acute Code for [facility] Fw Diagnoses Sepsis A41.9 Abscess of right foot L02.611 Cellulitis of foot L03.119 Type 2 diabetes mellitus with complication E11.8
[2024-04-14] MEDS: magnesium sulfate premix 2 GM/50 ML PIGGYBACK IV (08:03)
[2024-04-14] MEDS: insulin lispro 100 unit/1 mL SUBCUT ×4 (08:07→21:49)
--- NOTE | 2024-04-14 08:22 | MR_ITS ---
WS: [id number] EXAMINATION: MR foot RT wo/w con [id number] ORDER DATE: 04/14/2024 12:53 PM COMPARISON: None. HISTORY: Right foot abscess CONTRAST: None. TECHNIQUE: Sagittal T1, sagittal STIR, coronal PD, coronal T2, axial T1, axial T2, and axial PD imagi ng with fat saturation technique. Post gadolinium imaging includes axial T1, coronal T1, and sagittal T1 with fat saturation technique. FINDINGS: Exam somewhat limited due to motion artifact and positioning. Exam done with bandages in pl nikhil. Susceptibility artifact in the area of the puncture wound along the plantar foot at the level of the third proximal phalanx. Findings suspicious for residual foreign body in this area. Diffuse edema involving the plantar forefoot with diffuse enhancement and cellulitis extending into t he deep soft tissues. Small complex collection suspicious along the dorsal foot between the third and fourth metatarsal heads with associated peripheral enhanc ement. This measures approximately 11 x 14 mm. This appears extends to the skin surface. This collect ion demonstrates low internal signal and does not appear fluid signal. No evidence of osteomyelitis considering scan limitations. Preservation of the normal T1 fatty bone m arrow signal. Hallux valgus. Hammertoe deformities. MR/MR foot RT wo/w con [id number] IMPRESSION: Exam is somewhat limited due to positioning with heavy bandages and motion artifact. 1. No evidence of osteomyelitis. 2. Susceptibility artifact along the plantar forefoot in the area of the punct ure wound suspicious for residual foreign metallic body. No corresponding findi ngs on the recent radiographs. 3. Complex low signal collection along the dorsal forefoot between the third a nd fourth metatarsal heads measuring 11 x 14 mm. This appears to extend to the skin surface. This demonstrates complex internal signal and may be postoperativ e hematoma or blood products if recent surgery or drainage of abscess in this a felix. Contents do not appear fluid signal but could represent complex phlegmon o r partially drained abscess 4. Diffuse edema with cellulitis involving the forefoot. This involves the jaylin brie and plantar soft tissues.
[2024-04-14] MEDS: BuSPIRONE 10 mg Tablet 7.5 MG PO ×2 (08:25→17:29)
[2024-04-14] MEDS: cetirizine 10 mg Tablet PO (08:25)
[2024-04-14] MEDS: pantoprazole DR 40 mg Tablet PO (08:26)
[2024-04-14] MEDS: lisinopril 10 mg Tablet PO (08:26)
--- NOTE | 2024-04-14 09:12 | P.PN_ITS ---
Documented by User: Iam Lord 04/14/24 11:27 Subjective 2 Subjective: Patient is a 54 y.o. male admitted for right foot puncture wound with abscess and cellulitis. He underwent incision and drainage by Dr. De La Garza yesterday. He endorses pain of the surgical area that has been reduced only by morphine. He also had a few instances of chest pain since yesterday associated with increased heart rate when moving out of bed. ECG and troponin were performed which were both normal. He says this pain has not recurred today. His appetite is good. Passing flatus and urinating normally. He did have fever last night which is resolved and non-recurring since midnight. Medications: Reviewed: Yes Vitals/I&O/Wt Last Vital Signs Temp 99.5 F 04/14/24 07:10 Pulse 105 H 04/14/24 07:10 Resp 18 04/14/24 08:23 BP 144/92 04/14/24 07:10 Pulse Ox 94 04/14/24 07:10 O2 Del Method Room Air 04/14/24 07:10 04/13/24 04/14/24 04/14/24 22:59 06:59 14:59 Intake Total 3168 / 3218 300 / 3518 240 / 240 Output Total 2 / 2 Balance 3166 / 3216 300 / 3516 240 / 240 Weight last 48 hrs Weight 300 lb 7 oz Weight 297 lb Physical Exam 2 Narrative: General: Awake, alert, and oriented. Appears to be in minimal discomfort. Cardiovascular: Regular rhythm. Slightly tachycardic. No murmurs. Lungs: Clear to auscultation bilaterally. Extremities: Wound dressing and postop shoe in place on right foot. Cellulitis of lower right leg appears less erythematous than previous exam. Capillary refill intact. Extremities otherwise unremarkable. Sepsis: Is patient septic: Yes Focused sepsis exam performed: Yes Date exam was performed: 04/13/24 Time exam was performed: 09:58 Data 04/14/24 01:04 04/14/24 01:04 Micro: Microbiology 04/13/24 15:00 Gram Stain - Final Other Source 04/13/24 09:19 Blood Culture - Preliminary Blood SPECIMEN COLLECTED 04/13/24 09:16 Blood Culture - Preliminary Blood SPECIMEN COLLECTED A&P Assessment and plan (1) Sepsis: qSOFA score currently 1. Did have concern of sepsis. Clear eligible source with right foot abscess and cellulitis. Underwent I&D for this yesterday. Patient was febrile last night but now normothermic. Has remained tachycardic. No instances of hypotension recorded this hospitalization. Lactic acid was elevated yesterday at 2.7 with reflex of 2.1. Blood cultures collected yesterday are negative to date. Will continue Vancomycin and Zosyn. (2) Abscess of right foot: Incision and drainage performed by Dr. De La Garza yesterday Some concern that there may be some residual retained infection MRI of right foot ordered to further evaluate Antibiotics as above Pain control with morphine and oxycodone prn (3) Cellulitis of foot: See above (4) Type 2 diabetes mellitus with complication: No evidence of DKA Sliding scale insulin Consistent carb diet when it is started (5) Chest pain: Substernal chest pain with tachycardia noted while transferring from bed last night ECG series and troponins at that time were WNL Ordered echocardiogram and chemical stress test to further evaluate Plan Other medical problems as outlined in past medical history Coding Level of Care Code 56324 Diagnoses Sepsis A41.9 Abscess of right foot L02.611 Cellulitis of foot L03.119 Type 2 diabetes mellitus with complication E11.8 Chest pain R07.9 Time Spent (min) 26 Documented by User: Jim Perez MD 04/14/24 11:33 Data 04/14/24 01:04 04/14/24 01:04 A&P Assessment and plan (1) Sepsis: qSOFA score currently 1. Did have concern of sepsis. Clear eligible source with right foot abscess and cellulitis. Underwent I&D for this yesterday. Patient was febrile last night but now normothermic. Has remained tachycardic. No instances of hypotension recorded this hospitalization. Lactic acid was elevated yesterday at 2.7 with reflex of 2.1. Blood cultures collected yesterday are negative to date. Will continue Vancomycin and Zosyn. Await wound cultures. (2) Abscess of right foot: (3) Cellulitis of foot: (4) Type 2 diabetes mellitus with complication: (5) Chest pain: Substernal chest pain with tachycardia noted while transferring from bed last night ECG series and troponins at that time were WNL Ordered echocardiogram and chemical stress test to further evaluate Aspirin daily Lipid profile in the morning Attestations 2 Medical Necessity Statement*: Needs continued hospitalization for IV antibiotics secondary to cellulitis, foot infection as well as evaluation of chest discomfort. Diagnoses Sepsis A41.9 Abscess of right foot L02.611 Cellulitis of foot L03.119 Type 2 diabetes mellitus with complication E11.8 Chest pain R07.9 Time Spent (min) 26
--- NOTE | 2024-04-14 09:23 | USCV_ITS ---
Jules Ulissestanya Age: 54 Gender: M : 1970 Exam Date: 04/14/2024 08:58 Ordering Phys: Jim Perez MD Technologist: [place] [facility] [place] cp sob BP: 145 / 85 HR: 96 Rhythm: Sinus Technical Quality: Adequate MEASUREMENTS (Male / Female) Normal Values 2D ECHO LV Diastolic Diameter PLAX 4.5 cm 4.2 - 5.9 / 3.9 - 5.3 cm IVS Diastolic Thickness 1.2 cm 0.6 - 1.0 / 0.6 - 0.9 cm IVS Systolic Thickness 1.5 cm LVPW Diastolic Thickness 1.3 cm 0.6 - 1.0 / 0.6 - 0.9 cm LVPW Systolic Thickness 1.6 cm LVOT Diameter 2.3 cm LV Ejection Fraction 2D Teich 58.8 % LV Ejection Fraction MOD 4C 63.8 % LV Ejection Fraction MOD 2C 65.0 % LV Ejection Fraction 2C AL 64.3 % LA Diameter 3.3 cm RA Systolic Volume 4C AL 60.4 ml RA Systolic Volume 4C MOD 56.7 ml LA Sys Volume AL 60.8 cm cubed LA Sys Volume Index AL 23.6 cm cubed/m squared M-MODE LA Ao Ratio MM 1.7 AV Cusp Separation MM 2.6 cm DOPPLER AV Peak Velocity 126.8 cm/s LVOT Peak Velocity 88.0 cm/s AV Area Cont Eq vti 3.8 cm squared AV Area Cont Eq pk 2.9 cm squared MV Peak Velocity 89.0 cm/s MV Area PHT 4.6 cm squared Mitral E to A Ratio 1.2 TR Peak Velocity 143.0 cm/s TR Peak Gradient 8.2 mmHg TV Peak E Velocity 104.0 cm/s Right Atrial Pressure 3.0 mmHg Pulmonary Artery Systolic Pressu 11.2 mmHg PV Peak Velocity 95.0 cm/s FINDINGS Left Ventricle Normal left ventricular size and systolic function, EF 64% . No regional wall motion abnormalities. Right Ventricle The right ventricle is normal in size and function. Right Atrium The right atrium is normal in size. Left Atrium The left atrium is normal in size. Mitral Valve No gross abnormalities noted Aortic Valve No gross abnormalities noted . Tricuspid Valve Trace tricuspid valve regurgitation. Pulmonic Valve No gross abnormalities noted Pericardium Normal pericardium without effusion. Aorta Normal ascending aorta dimension. IVC Inferior vena cava not visualized. CONCLUSIONS Normal left ventricular size and systolic function, EF 64% . No regional wall motion abnormalities. Normal cardiac chamber sizes. No significant stenotic or regurgitant lesions There is no pericardial effusion. There are no intracardiac masses. No similar previous studies are available for comparison Dr Saniya Carrera MD [facility] (Electronically Signed) Final Date: 15 April 2024 13:22 S
--- NOTE | 2024-04-14 09:31 | ECG_ITS ---
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 Interpretive Statements Lung unchanged pre/post procedure; Intraprocedure shortess of breath; Symptoms resoled by discharge PROCEDURE: At the baseline, the EKG revealed normal sinus rhythm with a poor R wave progression. Some nonspecific T wave changes.. The baseline heart was 98 bpm with a blood pressue of 130/79 mm of Hg Lexiscan was infused over a period of 20 seconds. A total of 0.4 milligrams of Lexiscan was infused. The stress phase was continued for a total of 5 minutes. Heart rate at the end of the stress phase was 103 bpm with a blood pressure 112/79 mm of Hg. The EKG at the peak infusion revealed no significant changes. Sestamibi was injected 20 seconds after the Lexiscan infusion. Heart rate at the end of the recovery phase was 99 bpm with a blood pressure of 130/63 mm of Hg. CONCLUSION: 1. No significant EKG changes with the LexiScan infusion 2. No LexiScan induced chest pain or cardiac arrhythmia 3. Normal blood pressure and heart rate response 4. Sestamibi/sestamibi perfusion scan pending; see separate report. Electronically Signed On 04-17-2024 12:05:18 CHAIN SALES REPRESENTATIVE by Saniya Carrera M.D. [email or web address]
[2024-04-14 10:09] LABS: Vancomycin Trough 8.6 ug/mL (10-15)
--- NOTE | 2024-04-14 10:24 | PC.CHAP ---
Pastoral Care Encounter/Spiritual Assessment Type of Contact [] Declined plant floor automation manager visit [] Patient/Family/Request visit [] Outpatient visit [] Follow-up visit [] Physician referral [] Code/Alert [x] Routine visit [] Staff referral [] Actively dying [] Patient sleeping [x] Family support [] [] Out of room [] Palliative care [] [] Receiving care in room [] Pre-surgical visit [] Trauma [] Long length of stay [] ICU visit [] Other: Relational/Emotional Strength [x] Patient feels connected with others/family/visitors/staff [] Distress [] Loneliness/isolation [] Abandonment Spirituality of Patient [x] Person of Krissy [] Attends Confucianism of their Krissy [x] Believes in Prayer [] Reads Bible or Spiritism materials [] There are Spiritual issues to be addressed Clerk Of Superior Court Interventions [x] Prayer [x] Active listening [] Non-anxious presence [x] Spiritual/emotional support [] Crisis/trauma care [] Spiritual counseling [] Bereavement support [] Provided bereavement packet [] Provided Bible/devotional materials [] Provided toy/stuffed animal, coloring book to patient or family member [] Provided Communion [] Anointing/[place] [] Salvation [x] Completed spiritual assessment [] Other: Impact on Illness or Injury [] Angry [] Fearful [] Anxious [] Often cries [] Exhaustion [] Unable to work [] Unable to attend anabaptism [] Unable to walk/stand [] Unable to read [] Unable to drive [] Unable to eat/drink [] Unable to sleep [] Unable to be with family [] Patient intubated [] Other: Summary Time spent with patient 5 min
[2024-04-14 10:41] LABS: Glucose Point of Care 268 mg/dL (70-110)
[2024-04-14] MEDS: aspirin 81 mg EC Tablet PO (11:30)
[2024-04-14] MEDS: piperacillin-tazobactam 3.375 GM in sodium chloride 0.9% (plus) 50 ML IV ×2 (11:31→21:48)
[2024-04-14] MEDS: vancomycin 1,500 MG/300 ML PIGGYBACK 200 MG IV ×2 (13:45→20:14)
[2024-04-14 17:00] LABS: Glucose Point of Care 251 mg/dL (70-110)
[2024-04-14] MEDS: oxyCODONE 5 mg IR Tab/Cap PO (17:28)
[2024-04-14] MEDS: fenofibrate 145 mg Tablet PO (17:29)
[2024-04-14 20:43] LABS: Glucose Point of Care 304 mg/dL (70-110)
[2024-04-14] MEDS: enoxaparin 40 mg/0.4 mL Syringe SUBCUT (21:48)
[2024-04-14] MEDS: atorvastatin 40 mg Tablet PO (21:48)
[2024-04-14] MEDS: amitriptyline 25 mg Tablet PO (21:48)
[2024-04-15] VITALS (9 sets, daily range): BP systolic 124–142; BP diastolic 63–85; PULSE 89–101; RESP 16–18; TEMP 36.4–37.1; O2SAT 94–97
[2024-04-15] MEDS: vancomycin 1,500 MG/300 ML PIGGYBACK 200 MG IV ×3 (02:06→17:41)
[2024-04-15] MEDS: morphine 4 mg/mL SDV 1 mL IVP ×3 (02:08→20:01)
[2024-04-15] MEDS: piperacillin-tazobactam 3.375 GM in sodium chloride 0.9% (plus) 50 ML IV ×3 (03:49→21:23)
[2024-04-15 05:36] LABS: Basophils # 0.1 10^3/uL (0.0-0.1); Basophils % 0.9 %; Eosinophils # 0.2 10^3/uL (0.0-0.8); Eosinophils % 3.3 %; Hematocrit 38.2 % (37-53); Lymphocytes # 1.2 10^3/uL (0.8-4.8); Lymphocytes % 20.6 %; Mean Corpuscular HGB Conc 32.7 g/dL (30-55); Mean Corpuscular Hemoglobin 28.4 pg (27-33); Mean Corpuscular Volume 86.8 fl (82-101); Mean Platelet Volume 10.2 fL (7.4-10.4); Monocytes # 0.6 10^3/uL (0.2-0.9); Monocytes % 10.4 %; Neutrophils # 3.71 10^3/uL (1.8-7.7); Neutrophils % 64.1 %; Nucleated Red Blood Cells % 0 %; Platelet Count 150 10^3/cmm (157-399); Red Cell Distribution Width 14.5 % (12.1-15.1); White Blood Count 5.78 10^3/uL (3.29-11.43)
[2024-04-15 05:57] LABS: Anion Gap 16.2 (5-19); Blood Urea Nitrogen 13 mg/dL (6-20); Calcium 8.4 mg/dL (8.5-10.5); Carbon Dioxide 23 mmol/L (22-29); Chloride 100 mmol/L (98-107); Creatinine Clr Calc Pharmacy 109.0198; Glomerular Filtration Rate 69.5 mL/min (90-130); Glucose 241 mg/dL (65-115); Osmolality Calculated 288 mOsm/kg (285-295); Potassium 4.2 mmol/L (3.5-5.1); Sodium 135 mmol/L (136-145)
[2024-04-15 06:23] LABS: Glucose Point of Care 226 mg/dL (70-110)
--- NOTE | 2024-04-15 07:40 | P.PN_ITS ---
Subjective 2 Subjective: Patient seen at bedside this morning. Doing well. States pain is improving. Remained afebrile overnight. Vitals/I&O/Wt Last Vital Signs Temp 98.1 F 04/15/24 07:33 Pulse 93 04/15/24 07:33 Resp 18 04/15/24 07:33 BP 127/85 04/15/24 07:33 Pulse Ox 96 04/15/24 07:33 O2 Del Method Room Air 04/15/24 07:33 04/14/24 04/15/24 04/15/24 22:59 06:59 14:59 Intake Total 890 / 1420 350 / 1770 Output Total 800 / 800 200 / 1000 Balance 90 / 620 150 / 770 Weight last 48 hrs Weight 303 lb 4 oz Weight 300 lb 7 oz Weight 297 lb Physical Exam 2 Narrative: BELOW IS A FOCUSED LOWER EXTREMITY EXAM GENERAL: A&O x 3 VASCULAR: DP/PT pulses palpable 2/4 with CFT intact, <3seconds to distal digits. Edema right forefoot DERMATOLOGICAL: Surgical packing present to plantar and dorsal incisional wounds of right foot. Erythema much improved in comparison to previous visit. Still surrounding incision sites. MUSCULOSKELETAL: Persistent pain with palpation of plantar right foot surrounding incision, improved NEUROLOGICAL: Neurological sensation to the affected foot and ankle is present through L4-S1 dermatomes with no hyper/hypoesthesias, negative Tinel or Valleix's sign IMAGING: Three-view x-rays of right foot taken at today's visit were first interpreted by me which show accumulation of gas at the level of the third metatarsal phalangeal joint with increase of tissue density Data 04/15/24 05:03 04/15/24 05:03 Micro: Microbiology 04/13/24 15:00 Gram Stain - Final Other Source Abscess Culture - Preliminary 04/13/24 15:00 Anaerobic Culture - Preliminary Foot - #1 04/13/24 09:19 Blood Culture - Preliminary Blood NEGATIVE TO DATE 04/13/24 09:16 Blood Culture - Preliminary Blood NEGATIVE TO DATE A&P Assessment and plan (1) Sepsis: (2) Abscess of right foot: (3) Cellulitis of foot: (4) Type 2 diabetes mellitus with complication: Plan -Right foot abscess -Labs and vitals reviewed -WBC 9.38 -ESR 6 -CRP 108.5 -VSS -Cultures preliminary gram-positive rods -Abx Vanco/Zosyn -Diet: Okay for diet -Status post right foot incision and drainage (DOS 04/13/2024). Erythema right foot and leg continues to improve. However, cellulitis persists around incision sites. MRI reviewed, no additional abscess visualized; cellulitis present. Packing was removed at bedside this morning as a concern as nidus of infection. Foot was expressed no further purulence was visualized. After packing was pulled, dorsal and plantar incisions underwent delayed primary closure, see general procedure note. Based on infection and slow response to therapy I believe the patient would benefit from PICC line placement and IV antibiotic therapy upon discharge. -Pain Mgmt: Per primary team -Weight bearing: Weightbearing to right heel for transfers only -Dressings: Leave surgical dressing clean, dry, intact -Continue current Abx therapy until ID and Sensitivity results -Trend labs -Discharge plan: Recommend discharge with PICC line and IV antibiotic therapy. Preliminary cultures show gram-positive rods. Limit weightbearing to operative extremity in postop shoe. Keep leg elevated. Recommend follow-up within 1 week of discharge. -Podiatry will continue to round on patient daily and provide recommendations Attestations 2 Medical Necessity Statement*: See hospitalist note Coding Level of Care Code Acute Code for [facility] Diagnoses Sepsis A41.9 Abscess of right foot L02.611 Cellulitis of foot L03.119 Type 2 diabetes mellitus with complication E11.8
--- NOTE | 2024-04-15 07:46 | PM.ACPR ---
Procedure/Consent Consent: Consent for Procedure: Consent obtained from patient Additional Consent Information: Consent was obtained for right foot delayed primary closure CPT 61352 Procedure Narrative: Attention was directed to the right foot. Dorsal and plantar incision of the right foot was noted overlying the third intermetatarsal space with packing present. Site was prepped with alcohol before being anesthetized with 3 cc of 1% lidocaine plain. After anesthesia was achieved, quarter inch iodoform packing gauze was removed from the dorsal and plantar incisions. The incision sites were inspected. No readily visualized abscess was noted. The foot was expressed and no purulence was visualized. After removing of the packing, the dorsal and plantar incisions of the right foot were closed using 2-0 nylon in simple interrupted fashion using sterile technique. The incisions were then dressed with Xeroform, 4 x 4 gauze, Kerlix, Adalberto. The patient tolerated the procedure well and without complication.
[2024-04-15] MEDS: regadenoson 0.4 Mg/5 ml Syringe IVP (08:22)
--- NOTE | 2024-04-15 09:31 | NMCV_ITS ---
NM prabha perf SPECT r/s* [id number] Titus Vicente Age: 54 Gender: M : 1970 Exam Date: 04/15/2024 07:38 Ordering Phys: Jim Perez MD Technologist: MARTHA Chan Exam Location: [facility] Indications: CP STRESS TEST Please see separate stress test report in [facility] for full findings IMAGE PROTOCOL Rest/Stress 1 Lexiscan Day Radiopharmaceutical Dose (mCi) Administration Site Administered by Rest: Tc-99m 10.9 IV Gabriela Bacon, AFTERSCHOOL BABYSITTER Sestamibi Stress:Tc-99m 32.1 IV Gabriela Roblesgle, AFTERSCHOOL BABYSITTER Sestamibi Rest: 15-Apr-2024 60 Discovery 630 Stress: 15-Apr-2024 30 Discovery 630 0.4mg Lexiscan. Supine position only as patient was unable to lay prone. SPECT RESULTS Technical Quality: Good Raw Data Analysis: Normal Image Corrections: No attenuation or motion correction applied Summed Stress Score: 3 Summed Rest Score: 9 Summed Difference Score: 0 PERFUSION FINDINGS Moderate areas of minimal to moderately decreased tracer uptake in the inferior, inferolateral, anteroseptal and apical regions with no significant reversibility FUNCTIONAL RESULTS (calculated via Gated SPECT) Stress Image LV EF (%): 59 Stress EDV (mL):119 TID: 1.06 Stress ESV (mL):49 FUNCTIONAL FINDINGS: Segmental wall motion analysis revealing no gross wall motion abnormalities IMPRESSIONS 1. Myocardial perfusion imaging revealing areas of persistent decreased tracer uptake in the inferior, inferolateral, anteroseptal and apical regions suggesting myocardial scarring versus attenuation artifact. 2. Normal LV ejection fraction of 59%. 3. LV wall motion analysis revealing no gross wall motion abnormalities. 4. Normal LV volume Low probability for coronary ischemia, based on the above findings No similar previous studies are available for comparison Dr Saniya Carrera MD [facility] (Electronically Signed) Final Date: 15 April 2024 12:19 S
--- NOTE | 2024-04-15 09:58 | P.PN_ITS ---
Documented by User: Iam Lord 04/15/24 10:17 Subjective 2 Subjective: Patient is a 54 y.o. male on hospital day #3 for right foot abscess and cellulitis. He is post-op day #2 after incision and drainage. No notable overnight events. Underwent removal of wound packing with delayed primary closure of dorsal and plantar incisions this morning by podiatry. He still endorses pain of the operative area but feels his pain continues to decrease. He endorses normal urination but is still yet to have a bowel movement. Has been passing flatus. Denies any recurrence of the chest pain he previously mentioned. Medications: Reviewed: Yes Vitals/I&O/Wt Last Vital Signs Temp 98.1 F 04/15/24 07:33 Pulse 99 04/15/24 08:34 Resp 18 04/15/24 07:33 BP 130/63 04/15/24 08:34 Pulse Ox 96 04/15/24 07:33 O2 Del Method Room Air 04/15/24 07:33 04/14/24 04/15/24 04/15/24 22:59 06:59 14:59 Intake Total 890 / 1420 350 / 1770 Output Total 800 / 800 200 / 1000 Balance 90 / 620 150 / 770 Weight last 48 hrs Weight 303 lb 4 oz Weight 300 lb 7 oz Physical Exam 2 Narrative: General: Awake, alert, and oriented. No acute distress. Cardiovascular: Regular rate and rhythm. No murmurs. Lungs: Clear to auscultation bilaterally. Extremities: Wound dressing and postop shoe in place on right foot. Cellulitis of lower right leg continues to appear decreasingly erythematous. Capillary refill intact. Extremities otherwise unremarkable. Data 04/15/24 05:03 04/15/24 05:03 Micro: Microbiology 04/13/24 15:00 Gram Stain - Final Other Source Abscess Culture - Preliminary 04/13/24 15:00 Anaerobic Culture - Preliminary Foot - #1 04/13/24 09:19 Blood Culture - Preliminary Blood NEGATIVE TO DATE 04/13/24 09:16 Blood Culture - Preliminary Blood NEGATIVE TO DATE A&P Assessment and plan (1) Sepsis: qSOFA score currently 0. Did have concern of sepsis. Lactic acid was elevated two days ago at 2.7 with reflex of 2.1. Clear eligible source with right foot abscess and cellulitis. Underwent I&D 2 days ago. Patient has been afebrile for past 36 hours. Tachycardia also appears to be resolved. No instances of hypotension recorded this hospitalization. Blood cultures and wound cultures collected two days ago are negative to date. Will continue Vancomycin and Zosyn in hospital. Will coordinate plan for outpatient antibiotics with podiatry and infectious disease. (2) Abscess of right foot: Incision and drainage performed by Dr. De La Garza two days ago on 04/13 Post-op MRI of right foot did not show any retained abscess. Antibiotics as above Pain control with morphine and oxycodone prn (3) Cellulitis of foot: Erythema continues to progressively show evidence of resolution See above (4) Type 2 diabetes mellitus with complication: No evidence of DKA Sliding scale insulin Consistent carb diet (5) Chest pain: Two days ago endorsed substernal chest pain with tachycardia while transferring from bed ECG series and troponins at that time were WNL Echocardiogram and chemical stress test performed today, awaiting results. Aspirin daily Plan Other medical problems as outlined in past medical history Coding Level of Care Code 22435 Diagnoses Sepsis A41.9 Abscess of right foot L02.611 Cellulitis of foot L03.119 Type 2 diabetes mellitus with complication E11.8 Chest pain R07.9 Time Spent (min) 25 Documented by User: Jim Perez MD 04/15/24 10:34 Data 04/15/24 05:03 04/15/24 05:03 A&P Assessment and plan (1) Sepsis: qSOFA score currently 0. Did have concern of sepsis. Lactic acid was elevated two days ago at 2.7 with reflex of 2.1. Clear eligible source with right foot abscess and cellulitis. Underwent I&D 2 days ago. Patient has been afebrile for past 36 hours. Tachycardia also appears to be resolved. No instances of hypotension recorded this hospitalization. Blood cultures and wound cultures collected two days ago are negative to date. Will continue Vancomycin and Zosyn in hospital. Will coordinate plan for outpatient antibiotics with podiatry and infectious disease. Sepsis has resolved (2) Abscess of right foot: Incision and drainage performed by Dr. De La Garza two days ago on 04/13 Post-op MRI of right foot did not show any retained abscess. Antibiotics as above Pain control with morphine and oxycodone prn Podiatry would like IV antibiotics at discharge. Will initiate a midline. Consult infectious disease for outpatient follow-up, directions on antibiotic use at discharge. (3) Cellulitis of foot: Erythema continues to progressively show evidence of improvement See above (4) Type 2 diabetes mellitus with complication: (5) Chest pain: Attestations 2 Medical Necessity Statement*: Will likely need continued IV antibiotics secondary to cellulitis of the foot. However, will reevaluate this afternoon to determine if any stability has occurred to discharge home. Diagnoses Sepsis A41.9 Abscess of right foot L02.611 Cellulitis of foot L03.119 Type 2 diabetes mellitus with complication E11.8 Chest pain R07.9 Time Spent (min) 25
[2024-04-15] MEDS: pantoprazole DR 40 mg Tablet PO (10:15)
[2024-04-15] MEDS: aspirin 81 mg EC Tablet PO (10:15)
[2024-04-15] MEDS: cetirizine 10 mg Tablet PO (10:15)
[2024-04-15] MEDS: lisinopril 10 mg Tablet PO (10:16)
[2024-04-15] MEDS: BuSPIRONE 10 mg Tablet 7.5 MG PO ×2 (10:17→17:42)
[2024-04-15] MEDS: insulin lispro 100 unit/1 mL SUBCUT ×4 (10:17→21:23)
[2024-04-15 10:40] LABS: Glucose Point of Care 205 mg/dL (70-110)
[2024-04-15 11:12] LABS: Vancomycin Trough 14.4 ug/mL (10-15)
[2024-04-15] MEDS: HYDROcodone-acetaminophen 5-325 mg Tablet 1 TAB PO ×2 (11:37→17:41)
[2024-04-15] MEDS: sennosides-docusate Tablet 2 TAB PO ×2 (11:37→17:42)
--- NOTE | 2024-04-15 12:51 | XR_ITS ---
WS: [id number] Right foot, 3 views, 04/15/2024 Clinical Data: Foreign body Comparison: Right foot, 04/13/2024 Findings: There is minimal subcutaneous air adjacent to the right fourth toe proximal phalanx. No radiopaque fo reign body is seen. There is minimal dorsal soft tissue swelling. There are no fractures or dislocations. No bone destruction or erosion is seen. XR/XR foot RT min 3V* [id number] Impression: 1. Subcutaneous air adjacent to the right fourth toe proximal phalanx. 2. Negative for radiopaque foreign body.
[2024-04-15 16:29] LABS: Glucose Point of Care 217 mg/dL (70-110)
--- NOTE | 2024-04-15 17:12 | PM.CONSULT ---
Providers/Reason For Consult Consulting Physician/Specialty*: Torri Hardin MD / Infcetious Disease Reason for Consult*: Foot infection Requesting Physician: Jim Perez MD Attending Physician: Jim Perez MD Primary Care Provider: Carlos Fonseca MD History of Present Illness History of Present Illness Titus Vicente is a 54 year old male who has been admitted since April 13, 2024. He initially presented to the outpatient podiatry clinic with concerns for right foot infection. Patient had stepped on a screw which had gone through his foot where. 3 days prior to coming in, he had been given a prescription for levofloxacin 750 mg daily which she had been taking. However his foot continued to become worse therefore he went to the podiatry clinic from where he was referred into the emergency room. Patient was febrile with Tmax of 101.3 Fahrenheit and was admitted to the hospital for IV antibiotics given failure of oral antibiotics. X-ray showed soft tissue edema/laceration without evidence of any foreign bodies or acute fracture. Further he underwent incision and drainage on 04/13/2024. IntraOp findings included discovery of a right foot abscess in the right third intermetatarsal space tracking to the dorsum of the foot. He underwent delayed primary closure at bedside earlier today. MRI of the foot taken on April 14, 2024 after debridement showed no evidence of osteomyelitis. Complex low signal collection along the dorsal forefoot between the third and fourth metatarsal heads measuring 11 x 14 mm. Extending to the skin surface. There are complex internal signal, possible postop hematoma versus abscess. Diffuse edema with cellulitis involving the forefoot. Possible artifact in the plantar forefoot area which appeared to be a metallic foreign body, however this was not seen on subsequent x-ray taken this afternoon. Operative room cultures are still pending. IV antibiotics are recommended at discharge by podiatry given extent of infection and failure of recent outpatient oral antibiotics. Infectious disease consulted for recommendations for IV antibiotics. Review of Systems General: Reports: 10 or more systems reviewed and unremarkable except in HPI and below Const: Denies: fever(s), chills or body aches Eyes: Denies: change in vision, blurry vision or photophobia ENMT: Reports: hoarseness; Denies: throat pain, enlarged tonsils, odynophagia or nasal congestion Card: Denies: chest pain, palpitations, irregular heart rhythm, edema, swelling of feet/ankles, lightheadedness, pre-syncope, dyspnea on exertion or orthopnea Resp: Denies: dyspnea, productive cough, non-productive cough, wheezing, stridor, pain on inspiration, change in phlegm color, hemoptysis or chest congestion GI: Denies: abdominal pain, nausea, vomiting, hematemesis, coffee ground emesis, dysphagia, heartburn, diarrhea, constipation, GI cramping, change in stool character, hematochezia or melena : Denies: flank pain, dysuria, urinary frequency, urinary urgency, urinary hesitancy or hematuria Musc: Denies: neck pain, back pain, extremity pain, joint swelling, joint warmth or deformity Neuro: Denies: headache(s), numbness in extremities, weakness in extremities, sensory changes, difficulty walking, frequent falls, dizziness, vertigo, behavioral changes, Slurred speech present or seizure-like activity Psych: Denies: anxiety, depression, suicidal ideation or homicidal ideation Endo: Denies: polyuria, polydipsia, tired all the time, cold intolerance or hot flashes Delvin/Lymph: Denies: easy bruising or easy bleeding Medications/Allergies Home Medications Medication Instructions Recorded Confirmed Last Taken Type omeprazole 20 mg capsule,delayed 20 mg PO DAILY 06/07/19 04/13/24 04/12/24 History release cetirizine 10 mg tablet (Zyrtec) 10 mg PO DAILY 11/01/19 04/13/24 04/12/24 History diphenhydramine HCl 25 mg capsule 25 mg PO BEDTIME 11/01/19 04/13/24 04/12/24 History (Benadryl) blood sugar diagnostic (OneTouch #50 ea 02/16/20 04/13/24 Unknown Rx Ultra Blue Test Strip) ascorbic acid (vitamin C) 500 mg 500 mg PO DAILY 02/06/23 04/13/24 04/12/24 History tablet (Vitamin C) cholecalciferol (vitamin D3) 50 100 mcg PO DAILY 02/06/23 04/13/24 04/12/24 History mcg (2,000 unit) capsule (Vitamin D3) zinc acetate 50 mg (zinc) capsule 50 mg PO DAILY 02/06/23 04/13/24 04/12/24 History naproxen sodium 220 mg capsule 220 mg PO Q8H PRN Pain 03/27/23 04/13/24 Unknown History (Aleve) betamethasone dipropionate 0.05 % 1 applic topical BID PRN skin 10/09/23 04/13/24 Unknown Rx topical cream irritation #45 grams buspirone 7.5 mg tablet 7.5 mg PO BID #60 tabs 03/29/24 04/13/24 04/13/24 Rx levofloxacin 750 mg tablet 750 mg PO DAILY 7 days #7 tabs 04/11/24 04/13/24 04/13/24 Rx amitriptyline 25 mg tablet 25 mg PO BEDTIME 04/13/24 04/13/24 04/12/24 History atorvastatin 40 mg tablet 40 mg PO BEDTIME 04/13/24 04/13/24 04/12/24 History fenofibrate nanocrystallized 145 145 mg PO QPM 04/13/24 04/13/24 04/12/24 History mg tablet ibuprofen 200 mg tablet 800 mg PO Q6H PRN Pain 04/13/24 04/13/24 Unknown History lisinopril 10 mg tablet 10 mg PO DAILY 04/13/24 04/13/24 04/12/24 History sitagliptin phosphate 100 mg 100 mg PO DAILY 04/13/24 04/13/24 04/12/24 History tablet (Januvia) Allergies Allergy/AdvReac Type Severity Reaction Status Date / Time No Known Allergies Allergy Verified 04/13/24 07:49 Current Medications Generic Name Dose Route Start Last Admin Trade Name Freq PRN Reason Stop Dose Admin Acetaminophen 650 mg 04/13/24 12:56 04/13/24 23:28 Acetaminophen 325 Mg Tablet PO 650 mg Q6H PRN Administration Mild/Mod Pain Or Temp >/= 101 Hydrocodone Bitart/Acetaminophen 1 tab 04/15/24 09:52 04/15/24 11:37 Hydrocodone-Acetaminophen 5-325 Mg Tablet PO 1 tab Q4H PRN Administration MODERATE PAIN Amitriptyline HCl 25 mg 04/13/24 21:00 04/14/24 21:48 Amitriptyline 25 Mg Tablet PO 25 mg BEDTIME PASTORA Administration Aspirin 81 mg 04/14/24 09:25 04/15/24 10:15 Aspirin 81 Mg Ec Tablet PO 81 mg DAILY PASTORA Administration Atorvastatin Calcium 40 mg 04/13/24 21:00 04/14/24 21:48 Atorvastatin 40 Mg Tablet PO 40 mg BEDTIME PASTORA Administration Buspirone HCl 7.5 mg 04/13/24 18:00 04/15/24 10:17 Buspirone 10 Mg Tablet PO 7.5 mg BID PASTORA Administration Cetirizine HCl 10 mg 04/14/24 09:00 04/15/24 10:15 Cetirizine 10 Mg Tablet PO 10 mg DAILY PASTORA Administration Enoxaparin Sodium 40 mg 04/13/24 20:00 04/14/24 21:48 Enoxaparin 40 Mg/0.4 Ml Syringe SUBCUT 40 mg Q24H PASTORA Administration Fenofibrate 145 mg 04/13/24 18:00 04/14/24 17:29 Fenofibrate 145 Mg Tablet PO 145 mg QPM PASTORA Administration Piperacillin Sod/Tazobactam 50 mls @ 12.5 mls/hr 04/13/24 15:30 04/15/24 13:30 Sod 3.375 gm/ Sodium Chloride IV 12.5 mls/hr Q8H PASTORA Administration Vancomycin HCl 1,500 mg in 300 mls @ 200 mls/hr 04/14/24 10:30 04/15/24 11:37 Vancocin IV 200 mls/hr Q8H PASTORA Administration Insulin Human Lispro 0 unit 04/13/24 12:56 04/15/24 13:26 Insulin Lispro 100 Unit/1 Ml SUBCUT 4 unit WM&BEDTIME PASTORA Administration Protocol Lisinopril 10 mg 04/14/24 09:00 04/15/24 10:16 Lisinopril 10 Mg Tablet PO 10 mg DAILY PASTORA Administration Morphine Sulfate 4 mg 04/13/24 12:56 04/15/24 07:20 Morphine 4 Mg/Ml Sdv 1 Ml IVP 4 mg Q4H PRN Administration SEVERE PAIN Pantoprazole Sodium 40 mg 04/14/24 09:00 04/15/24 10:[address] 40 Mg Tablet PO 40 mg DAILY PASTORA Administration Senna/Docusate Sodium 2 tab 04/15/24 09:55 04/15/24 11:37 Sennosides-Docusate Tablet PO 2 tab BID PASTORA Administration PFSH Acute PFSH: Medical History Alcohol use disorder, severe, dependence History of back injury History of back pain History of arthritis History of osteoarthritis History of 2019 novel coronavirus disease (COVID-19) Elevated LFTs History of MRSA infection Type 2 diabetes mellitus with complication Essential hypertension Dyslipidemia Anxiety GERD (gastroesophageal reflux disease) Diabetic neuropathy Colon cancer History of pancreatitis Obesity Surgical History History of colon resection History of appendectomy Family History Other CAD (coronary artery disease) Diabetes Hypertension Denies family history of Anesthesia complication Bleeding disorder Social History Smoking and tobacco/nicotine status: current some day tobacco/nicotine user (CIGARS) smokeless tobacco Smokeless tobacco user: chewing tobacco Second hand smoke exposure: No Alcohol intake: current Alcohol intake frequency: 3 or more drinks per day Alcohol type: beer Substance/Drug Use: never Lives independently: Yes Household members: spouse Marital status: Current occupational status: employed Current occupation: [employer] Current gender identity: Male Vitals/I&O/Wt Last Vital Signs Temp 98.6 F 04/15/24 15:13 Pulse 97 04/15/24 15:13 Resp 16 04/15/24 15:13 BP 124/74 04/15/24 15:13 Pulse Ox 97 04/15/24 15:13 O2 Del Method Room Air 04/15/24 15:13 04/15/24 04/15/24 04/15/24 06:59 14:59 22:59 Intake Total 350 / 1770 290 / 290 Output Total 200 / 1000 Balance 150 / 770 290 / 290 Weight last 48 hrs Weight 137.552 kg Weight 136.276 kg Physical Exam Narrative: General: No acute distress, AO x3 HEENT: PERRLA, pupils bilaterally equal and reactive, pallors not present Chest: Normal vesicular breath sounds, no added sounds, equal good air entry bilaterally CVS: S1-S2 regular, no murmurs, no tachycardia, no gallops, no rubs Abdomen: Soft, nontender, no organomegaly, bowel sounds present Neuro: No focal deficits, no facial deformity, AO x3, power 5/5 in all limbs Extremities: Postoperative dressing over right foot not open for exam. Data 04/15/24 05:03 04/15/24 05:03 Micro: Microbiology 04/13/24 15:00 Gram Stain - Final Other Source Abscess Culture - Preliminary 04/13/24 15:00 Anaerobic Culture - Preliminary Foot - #1 NAME: Titus Vicente LOC: [facility] #: [id number] AGE/SX: 54/M ROOM: [facility] RE04/13/[address]: Jim Perez MD : 1970 BED: 1 DIS: FAX #: STATUS: ADM IN TLOC: Spec #: [id number] Gini: 04/13/24 Status: RES Req #: [id number] Recd: 04/13/[address]: Hudson De La Garza DPM Src: Foot SpDesc: #1 Ordered: Anaer Comments: Comment right foot Procedure Result Verified Site Anaerobic Culture Preliminary 04/15/24-100 DAY 2, RESULTS TO FOLLOW Anaerobic Culture Preliminary (changed) 04/15/24-1003 DAY 2, RESULTS TO FOLLOW Anaerobic Culture Preliminary (changed) 04/14/24-1426 NO ANAEROBES ISOLATED ON DAY 1 [facility] [address] [place] [address] DR. PEDRO DONNELLY, [employer] SE[employer]ING NAME: Titus Vicente LOC: [facility] #: [id number] AGE/SX: 54/M ROOM: [facility] RE04/13/[address]: Jim Perez MD : 1970 BED: 1 DIS: FAX #: STATUS: ADM IN TLOC: Spec #: [id number] Gini: 04/13/24 Status: RES Req #: [id number] Recd: 04/13/[address]: Hudson De La Garza DPM Src: Other Sour SpDesc: Ordered: Absces Cult&GS Comments: Comment right foot Procedure Result Verified Site Gram Stain Final 04/14/24-0850 Result NO WHITE BLOOD CELLS FEW GRAM POSITIVE RODS Abscess Culture Preliminary 04/15/24-1030 HEAVY MIXED SUPERFICIAL JULIA ON DAY 2 Abscess Culture Preliminary (changed) 04/14/243 MODERATE MIXED SUPERFICIAL JULIA ON DAY 1 LY: VicenteUlissestanya Bailey LOC: [facility] U #: [id number] AGE/SX: 54/M ROOM: [facility] RE04/13/[address]: Jim Perez MD : 1970 BED: 1 DIS: FAX #: STATUS: ADM IN TLOC: Spec #: [id number] Gini: 04/13/24 Status: RES Req #: [id number] Recd: 04/13/[address]: Anita Gross Src: Blood SpDesc: Ordered: Bcult Procedure Result Verified Site Blood Culture Preliminary 04/14/24 NEGATIVE TO DATE Blood Culture Preliminary (changed) 04/13/24 SPECIMEN COLLECTED NAME: Titus Vicente LOC: [facility] U #: [id number] AGE/SX: 54/M ROOM: [facility] RE04/13/[address]: Jim Perez MD : 1970 BED: 1 DIS: FAX #: STATUS: ADM IN TLOC: Spec #: [id number] Gini: 04/13/24 Status: RES Req #: [id number] Recd: 04/13/[address]: Anita Gross Src: Blood SpDesc: Ordered: Bcult Procedure Result Verified Site Blood Culture Preliminary 04/14/24 NEGATIVE TO DATE Blood Culture Preliminary (changed) 04/13/24 SPECIMEN COLLECTED Other data: MR/MR foot RT wo/w con [id number] IMPRESSION: Exam is somewhat limited due to positioning with heavy bandages and motion artifact. 1. No evidence of osteomyelitis. 2. Susceptibility artifact along the plantar forefoot in the area of the puncture wound suspicious for residual foreign metallic body. No corresponding findings on the recent radiographs. 3. Complex low signal collection along the dorsal forefoot between the third and fourth metatarsal heads measuring 11 x 14 mm. This appears to extend to the skin surface. This demonstrates complex internal signal and may be postoperative hematoma or blood products if recent surgery or drainage of abscess in this area. Contents do not appear fluid signal but could represent complex phlegmon or partially drained abscess 4. Diffuse edema with cellulitis involving the forefoot. This involves the dorsal and plantar soft tissues. XR/XR foot RT min 3V* [id number] Impression: 1. Subcutaneous air adjacent to the right fourth toe proximal phalanx. 2. Negative for radiopaque foreign body. A&P Assessment and plan (1) Abscess of right foot: 54-year-old diabetic male presenting with right foot infection after injury with a foreign body. Status post I&D as described above. Blood culture negative Failure of outpatient oral antibiotic treatment. Recent MRI with collection along the dorsal forefoot between third or fourth metatarsal head, suggestive of postop hematoma versus abscess versus complex phlegmon or partially drained abscess. Given complex deep skin and soft tissue infection, would favor to treat with IV antibiotics. OR cultures are still pending, may be clouded by having received oral antibiotics as an outpatient Currently patient is on piperacillin/tazobactam and vancomycin empirically which we will plan to continue as outpatient over the next 2 to 3 weeks, depending on patient's progress. Midline ordered. Ordered for piperacillin/tazobactam 4.5 g IV every 8 hours and daptomycin 8 mg/kg IV every 24 hours for home use. Daptomycin chosen over vancomycin as the current dosing of vancomycin is at every 8 hours. We would not be able to reliably get a trough prior to every fourth dose at home if vancomycin continues every 8 hours. Weekly labs including CBC, LFT, creatinine and CPK while on above treatment to be faxed to the infectious disease clinic. Will follow Consult Attestations Medical Necessity Statement: Per admitting Coding Level of Care Code Acute Code for Chg Fwd High MDM includes number and complexity of problems actively addressed during encounter, amount and/or complexity of data reviewed/ordered and described risk of complication, morbidity or mortality of management as documented Diagnoses Abscess of right foot L02.611
[2024-04-15] MEDS: fenofibrate 145 mg Tablet PO (17:41)
[2024-04-15] MEDS: enoxaparin 40 mg/0.4 mL Syringe SUBCUT (20:01)
[2024-04-15] MEDS: atorvastatin 40 mg Tablet PO (20:01)
[2024-04-15] MEDS: amitriptyline 25 mg Tablet PO (20:01)
[2024-04-15 20:32] LABS: Glucose Point of Care 314 mg/dL (70-110)
[2024-04-16] MEDS: HYDROcodone-acetaminophen 5-325 mg Tablet 1 TAB PO ×3 (00:58→11:57)
[2024-04-16] MEDS: vancomycin 1,500 MG/300 ML PIGGYBACK 200 MG IV ×2 (00:59→11:52)
[2024-04-16 03:55] VITALS: BP 136/80; PULSE 88; RESP 18; TEMP 36.7; O2SAT 97
[2024-04-16] MEDS: piperacillin-tazobactam 3.375 GM in sodium chloride 0.9% (plus) 50 ML IV (05:56)
[2024-04-16 06:36] LABS: Glucose Point of Care 223 mg/dL (70-110)
[2024-04-16 07:41] VITALS: BP 114/72; PULSE 91; RESP 18; TEMP 36.7; O2SAT 95
--- NOTE | 2024-04-16 07:50 | P.PN_ITS ---
Subjective 2 Subjective: Patient seen at bedside this morning. Resting comfortably. States that right foot is persistently tender but improving. No overnight events. Vitals/I&O/Wt Last Vital Signs Temp 98.1 F 04/16/24 07:41 Pulse 91 04/16/24 07:41 Resp 18 04/16/24 07:41 BP 114/72 04/16/24 07:41 Pulse Ox 95 04/16/24 07:41 O2 Del Method Room Air 04/16/24 07:41 04/15/24 04/16/24 04/16/24 22:59 06:59 14:59 Intake Total 1070 / 1660 950 / 2610 Output Total 350 / 350 Balance 1070 / 1660 600 / 2260 Weight last 48 hrs Weight 298 lb 4.8 oz Weight 303 lb 4 oz Physical Exam 2 Narrative: BELOW IS A FOCUSED LOWER EXTREMITY EXAM GENERAL: A&O x 3 VASCULAR: DP/PT pulses palpable 2/4 with CFT intact, <3seconds to distal digits. Edema right forefoot DERMATOLOGICAL: Surgical dressing clean, dry, intact. Status post delayed primary closure right foot MUSCULOSKELETAL: Persistent pain with palpation of plantar right foot surrounding incision, improved NEUROLOGICAL: Neurological sensation to the affected foot and ankle is present through L4-S1 dermatomes with no hyper/hypoesthesias, negative Tinel or Valleix's sign IMAGING: Three-view x-rays of right foot taken yesterday failed to demonstrate foreign body despite concern for foreign body on MRI. Data 04/15/24 05:03 04/15/24 05:03 Micro: Microbiology 04/13/24 15:00 Gram Stain - Final Other Source Abscess Culture - Preliminary 04/13/24 15:00 Anaerobic Culture - Preliminary Foot - #1 A&P Assessment and plan (1) Sepsis: (2) Abscess of right foot: (3) Cellulitis of foot: (4) Type 2 diabetes mellitus with complication: Plan -Right foot abscess -Labs and vitals reviewed -WBC 9.38 -ESR 6 -CRP 108.5 -VSS -Cultures preliminary gram-positive rods -Abx Vanco/Zosyn -Diet: Okay for diet -Status post right foot incision and drainage (DOS 04/13/2024). Erythema right foot and leg continues to improve. MRI showed possible retained foreign body. However, not visualized intraoperatively. X-rays were obtained yesterday which failed to demonstrate foreign body. Patient underwent delayed primary closure at bedside 04/15/2024. Continue IV antibiotics upon discharge. No further surgical intervention by podiatry during this admission -Pain Mgmt: Per primary team -Weight bearing: Weightbearing to right heel for transfers only -Dressings: Leave surgical dressing clean, dry, intact -Continue current Abx therapy until ID and Sensitivity results -Trend labs -Discharge plan: Recommend discharge with PICC line and IV antibiotic therapy. Preliminary cultures show gram-positive rods. Limit weightbearing to operative extremity in postop shoe. Keep leg elevated. Recommend follow-up within 1 week of discharge. Leave surgical dressing clean, dry, intact. -Podiatry will continue to round on patient daily and provide recommendations Attestations 2 Medical Necessity Statement*: See hospitalist note Coding Level of Care Code Acute Code for [facility] Fwd Diagnoses Sepsis A41.9 Abscess of right foot L02.611 Cellulitis of foot L03.119 Type 2 diabetes mellitus with complication E11.8
--- NOTE | 2024-04-16 08:40 | PM.DCS ---
Discharge Providers Date of Admission: 04/13/24 10:45 Date of Discharge: April 16, 2024 Attending Provider at Admission: Jim Perez MD Attending Provider at Discharge: Jim Perez MD Primary Care Provider: Carlos Fonseca MD Diagnoses at Discharge Discharge Diagnosis (1) Sepsis: Status: Acute (2) Abscess of right foot: Status: Acute (3) Cellulitis of foot: Status: Acute (4) Type 2 diabetes mellitus with complication: Status: Chronic Reason for Visit Reason for Visit: Right foot pain (Dr. De La Garza) Hospital Course Hospital Course Patient presented with fever, history of stepping on a foreign body, failing outpatient antibiotic for cellulitis, tachycardia and elevated lactic acid concerning for sepsis. He was placed on broad-spectrum antibiotics. Podiatry was consulted on admission, secondary to abscess present in the foot. He had development of high fever in the hospital, persistent tachycardia all concerning for sepsis. He did not become hypotensive. He went to surgery, I&D on 04/13. Following this he had significant persistent pain, and elevated temperature. Fever persisted until late 04/13/1113 and persistent low-grade fevers for days following. Wound was slow to improve. He did have repeat evaluation and closure on 04/15. Following this he had no recurrent fevers, had infectious disease evaluate him secondary to need for IV antibiotics with deep abscess, slow to respond, infection close to bone and tendon. Blood cultures were negative at discharge. Wound cultures had not shown definitive growth. He will discharge on daptomycin, Zosyn for course dependent upon follow-up with podiatry and infectious disease. At time of discharge she was afebrile, understood the plan, and had no further questions. During his hospital stay he also had an episode of chest discomfort when getting up early in the course. A nuclear stress test was done demonstrating no reversible ischemia. Physical Exam Narrative: General Exam no distress Neck is supple Cardiovascular regular rate and rhythm Lungs clear Abdomen is soft Extremities no cyanosis clubbing or edema, dressing right foot, cellulitis much improved Discharge Data Studies Completed and Pending Completed Studies During Hospitalization Category Date Time Status Sestamibi Stress Test Request Routine Exams 04/14/24 09:31 Draft XR foot RT min 3V* [id number] Routine Exams 04/15/24 12:51 Completed MR foot RT wo/w con [id number] Routine MRI 04/14/24 08:22 Completed NM prabha perf SPECT r/s* [id number] Routine Nuc Med 04/15/24 09:31 Completed CV. echo complete* [id number] Routine Ultrasound 04/14/24 09:23 Completed Pending at discharge Category Date Time Status Abscess Culture and Gram Stain Routine Lab 04/13/24 15:00 Results Anaerobic Culture Routine Lab 04/13/24 15:00 Results Blood Culture Stat Lab 04/13/24 09:19 Results Radiology Impressions Foot MRI 04/14/24 08:22 IMPRESSION: Exam is somewhat limited due to positioning with heavy bandages and motion artifact. 1. No evidence of osteomyelitis. 2. Susceptibility artifact along the plantar forefoot in the area of the puncture wound suspicious for residual foreign metallic body. No corresponding findings on the recent radiographs. 3. Complex low signal collection along the dorsal forefoot between the third and fourth metatarsal heads measuring 11 x 14 mm. This appears to extend to the skin surface. This demonstrates complex internal signal and may be postoperative hematoma or blood products if recent surgery or drainage of abscess in this area. Contents do not appear fluid signal but could represent complex phlegmon or partially drained abscess 4. Diffuse edema with cellulitis involving the forefoot. This involves the dorsal and plantar soft tissues. Foot X-Ray 04/15/24 12:51 Impression: 1. Subcutaneous air adjacent to the right fourth toe proximal phalanx. 2. Negative for radiopaque foreign body. Laboratory Results WBC 5.78 10^3/uL (3.29-11.43) 04/15/24 05:03 RBC 4.40 10^6/uL (3.85-5.65) 04/15/24 05:03 Hgb 12.50 g/dL (11.27-16.99) 04/15/24 05:03 Hct 38.2 % (37-53) 04/15/24 05:03 MCV 86.8 fl (82-101) 04/15/24 05:03 MCH 28.4 pg (27-33) 04/15/24 05:03 MCHC 32.7 g/dL (30-55) 04/15/24 05:03 RDW 14.5 % (12.1-15.1) 04/15/24 05:03 Plt Count 150 10^3/cmm (157-399) L 04/15/24 05:03 MPV 10.2 fL (7.4-10.4) 04/15/24 05:03 Neut % (Auto) 64.1 % 04/15/24 05:03 Lymph % (Auto) 20.6 % 04/15/24 05:03 [place] % (Auto) 10.4 % 04/15/24 05:03 Eos % (Auto) 3.3 % 04/15/24 05:03 Baso % (Auto) 0.9 % 04/15/24 05:03 Neut # (Auto) 3.71 10^3/uL (1.8-7.7) 04/15/24 05:03 Lymph # (Auto) 1.2 10^3/uL (0.8-4.8) 04/15/24 05:03 [place] # (Auto) 0.6 10^3/uL (0.2-0.9) 04/15/24 05:03 Eos # (Auto) 0.2 10^3/uL (0.0-0.8) 04/15/24 05:03 Baso # (Auto) 0.1 10^3/uL (0.0-0.1) 04/15/24 05:03 Nucleated RBC % (auto) 0 % 04/15/24 05:03 Nucleated RBCs # 0.0 /100WBC 04/15/24 05:03 ESR 6 mm/hr (0-10) 04/13/24 09:16 Sodium 135 mmol/L (136-145) L 04/15/24 05:03 Potassium 4.2 mmol/L (3.5-5.1) 04/15/24 05:03 Chloride 100 mmol/L (98-107) 04/15/24 05:03 Carbon Dioxide 23 mmol/L (22-29) 04/15/24 05:03 Anion Gap 16.2 (5-19) 04/15/24 05:03 BUN 13 mg/dL (6-20) 04/15/24 05:03 Creatinine 1.1 mg/dL (0.7-1.2) 04/15/24 05:03 GFR Calculation 69.5 mL/min (90-130) L 04/15/24 05:03 Glucose 241 mg/dL (65-115) H 04/15/24 05:03 POC Glucose 223 mg/dL (70-110) H 04/16/24 06:19 Estimat Average Glucose 186 04/13/24 09:16 Hemoglobin A1c 8.1 % (4.0-6.0) H 04/13/24 09:16 Calculated Osmolality 288 mOsm/kg (285-295) 04/15/24 05:03 Lactic Acid 2.7 mmol/L (0.5-2.2) H 04/13/24 09:16 Lactic Acid (Sepsis) 2.1 mmol/L (0.5-2.2) 04/13/24 11:53 Calcium 8.4 mg/dL (8.5-10.5) L 04/15/24 05:03 Magnesium 1.5 mg/dL (1.7-2.3) L 04/14/24 01:04 Total Bilirubin 0.5 mg/dL (0.15-1.2) 04/14/24 01:04 AST 20 U/L (0-40) 04/14/24 01:04 ALT 21 U/L (0-41) 04/14/24 01:04 Alkaline Phosphatase 72 U/L (40-130) 04/14/24 01:04 Troponin T Baseline 14 ng/L (0-15) 04/13/24 19:14 Troponin T 120 Minute 13.84 ng/L (0-15) 04/13/24 21:19 Delta Troponin T -0.16 ABS# (0-10) L 04/13/24 21:19 Troponin T Hi Sens 6Hr 13.15 ng/L (0-15) 04/14/24 01:04 Troponin T Hi Sens 6Hr Delta -0.85 ng/L (0-12) L 04/14/24 01:04 C-Reactive Protein 108.5 mg/L (0.0-4.9) H 04/13/24 09:16 Total Protein 6.3 g/dL (6.6-8.7) L 04/14/24 01:04 Albumin 4.1 g/dL (3.5-5.2) 04/14/24 01:04 Globulin 2.2 g/dL (1.3-4.6) 04/14/24 01:04 Urine Color Yellow (Yellow) 04/13/24 12:18 Urine Appearance Clear (CLEAR) 04/13/24 12:18 Urine pH 5.5 (5-7) 04/13/24 12:18 Ur Specific [place] 1.027 (1.005-1.030) 04/13/24 12:18 Urine Protein Trace (Negative) A 04/13/24 12:18 Urine Glucose (UA) 3+ (Normal) H 04/13/24 12:18 Urine Ketones Trace (Negative) 04/13/24 12:18 Urine Blood Negative (Negative) 04/13/24 12:18 Urine Nitrate Negative (Negative) 04/13/24 12:18 Urine Bilirubin Negative (Negative) 04/13/24 12:18 Urine Urobilinogen 0.2 mg/dL (Negative) 04/13/24 12:18 Ur Leukocyte Esterase Negative (Negative) 04/13/24 12:18 Urine RBC 0-2 /hpf (0-2) 04/13/24 12:18 Urine WBC 0-5 /hpf (0-5) 04/13/24 12:18 Ur Squamous Epith Cells 0-5 /hpf (0-5) 04/13/24 12:18 Amorphous Sediment Not Reportable 04/13/24 12:18 Urine Bacteria None seen /hpf (NONE) 04/13/24 12:18 Hyaline Casts 0.81 /lpf 04/13/24 12:18 Vancomycin Trough 14.4 ug/mL (10-15) 04/15/24 10:45 Vitals Last Vital Signs Temp 98.1 F 04/16/24 07:41 Pulse 91 04/16/24 07:41 Resp 18 04/16/24 07:41 BP 114/72 04/16/24 07:41 Pulse Ox 95 04/16/24 07:41 O2 Del Method Room Air 04/16/24 07:41 Discharge Plan Discharge Patient Disposition: Home Condition: Stable Prescriptions: New hydrocodone-acetaminophen 5-325 mg Tablet 1 tab PO Q4H PRN (Reason: Moderate Pain) Qty: 20 0RF Continued omeprazole 20 mg capsule,delayed release(DR/EC) 20 mg PO DAILY betamethasone dipropionate 0.05 % cream 1 applic topical BID PRN (Reason: skin irritation) Qty: 45 1RF cetirizine [Zyrtec] 10 mg tablet 10 mg PO DAILY diphenhydramine HCl [Benadryl] 25 mg capsule 25 mg PO BEDTIME (DME) OneTouch Ultra Blue Test Strip Strip See Rx Instructions .ROUTE .MEDSUPPLY Qty: 50 2RF Rx Instructions: use to check blood sugar daily buspirone 7.5 mg tablet 7.5 mg PO BID Qty: 60 0RF atorvastatin 40 mg tablet 40 mg PO BEDTIME amitriptyline 25 mg tablet 25 mg PO BEDTIME lisinopril 10 mg tablet 10 mg PO DAILY fenofibrate nanocrystallized 145 mg tablet 145 mg PO QPM Januvia 100 mg tablet 100 mg PO DAILY zinc acetate 50 mg (zinc) Capsule 50 mg PO DAILY ascorbic acid (vitamin C) [Vitamin C] 500 mg Tablet 500 mg PO DAILY cholecalciferol (vitamin D3) [Vitamin D3] 50 mcg (2,000 unit) Capsule 100 mcg PO DAILY Discontinued naproxen sodium [Aleve] 220 mg capsule 220 mg PO Q8H PRN (Reason: Pain) levofloxacin 750 mg tablet 750 mg PO DAILY 7 Days Qty: 7 0RF ibuprofen 200 mg Tablet 800 mg PO Q6H PRN (Reason: Pain) Discharge Orders: Discharge Order (Routine); Ordered 04/16/24 Ordered By: Jim Perez Other Ambulatory Orders: Miscellaneous Procedure (Order) Location: None Selected Ordered By: Jim Perez Miscellaneous Test (Routine) Timeframe: 1 Week Location: Determined by Patient Ordered By: Torir Hardin Referrals: [facility] Infusion Center [Outside] (You will need to come here for your weekly PICC line dressing change and lab work. We have notified the infusion center of the need for a follow-up appointment to be scheduled. If you have not heard from them within the next 2 business days, please call them directly. ) [employer] [Outside] (This is the company supplying your IV abxs (Zosyn and Daptomycin) it will be shipped directly to your house. ) Torri Hardin MD [Hospitalist] - (Please schedule with ID, at their preference, Dr. Hardin) Hudson De La Garza DPM [Physician] - 04/21/24 1:45 pm Carlos Fonseca MD [Primary Care Provider] - 4-7 days Discharge Diet: Diabetic Discharge Activity: Increase activity as tolerated Patient Instructions: Acute Wound Care (DC), Opioid Safety, Post Anesthesia Care Activity Restrictions/Additional Instructions: Take all medicine as prescribed Midline prior to discharge Follow-up with infectious disease, per their recommendation as well as podiatry Follow-up with primary care provider 3 to 5 days Laboratory, CBC, LFTs, creatinine, CK weekly while on antibiotics faxed to infectious disease clinic Discharge Attestations Time Spent in Discharge Care*: greater than 30 min Quality Metrics Clinical Quality Measures [ No reported AMI, CVA or VTE this stay] Coding Level of Care Code 83025 Total time (in minutes) for Discharge: 40 Diagnoses Sepsis A41.9 Abscess of right foot L02.611 Cellulitis of foot L03.119 Type 2 diabetes mellitus with complication E11.8
[2024-04-16] MEDS: BuSPIRONE 10 mg Tablet 7.5 MG PO (09:43)
[2024-04-16] MEDS: pantoprazole DR 40 mg Tablet PO (09:43)
[2024-04-16] MEDS: sennosides-docusate Tablet 2 TAB PO (09:43)
[2024-04-16] MEDS: cetirizine 10 mg Tablet PO (09:43)
[2024-04-16] MEDS: aspirin 81 mg EC Tablet PO (09:43)
[2024-04-16] MEDS: lisinopril 10 mg Tablet PO (09:43)
[2024-04-16] MEDS: insulin lispro 100 unit/1 mL SUBCUT ×2 (09:44→11:58)
[2024-04-16 10:39] LABS: Glucose Point of Care 291 mg/dL (70-110)
[2024-04-16 11:22] VITALS: BP 143/87; PULSE 90; RESP 17; TEMP 36.8; O2SAT 95
--- NOTE | 2024-04-16 16:02 | PICC.NOTE ---
Midline placed to left basilic vein. Referred to vascular access nurse for midline placement due to need for antibiotics x 2 weeks. Risks and benefits discussed and informed consent obtained from patient. Left arm assessed per pt request with left basilic vein measuring 3.9 mm, straight, and apparent best choice for placement. Using sterile technique and MST, left basilic vein accessed x 1 stick. Mid-arm circumference measured 10 cm from left AC 35 cm. Trimmed cath 10 cm with 0 cm external length noted. Line secured with stat-lock. Insertion site covered with Biopatch and TSM. Report given to bedside nurse, TAMI Cameron.
[2024-04-16 16:47] VITALS: BP 143/87; PULSE 90; O2SAT 95
== END 2024-04-16 16:11 | disposition home or self-care (01) | DRG 854 ==
LOC: ER 10:24 → MEDSURG 10:46
PROVIDERS: Podiatrist Foot & Ankle Surgery; Admitting Provider Internal Medicine; Emergency Provider Physician Assistant; PCP Family Medicine; Visit Provider Internal Medicine
PROC: 0J9Q0ZX Drainage of Right Foot Subcutaneous Tissue and Fascia, Open Approach, Diagnostic (ICD-10-PCS; principal; 2024-04-13 13:55)
DX: A41.9 Sepsis, unspecified organism (principal); D84.9 Immunodeficiency, unspecified; L02.611 Cutaneous abscess of right foot; L03.115 Cellulitis of right lower limb; Z68.41 Body mass index [BMI] 40.0-44.9, adult; S91.331A Puncture wound without foreign body, right foot, initial encounter; E11.9 Type 2 diabetes mellitus without complications; F10.20 Alcohol dependence, uncomplicated; I10 Essential (primary) hypertension; E78.5 Hyperlipidemia, unspecified; F41.9 Anxiety disorder, unspecified; K21.9 Gastro-esophageal reflux disease without esophagitis; E66.9 Obesity, unspecified; F17.220 Nicotine dependence, chewing tobacco, uncomplicated; F17.290 Nicotine dependence, other tobacco product, uncomplicated; Z85.038 Personal history of other malignant neoplasm of large intestine; W26.9XXA Contact with unspecified sharp object(s), initial encounter; Z92.21 Personal history of antineoplastic chemotherapy; Z79.84 Long term (current) use of oral hypoglycemic drugs
CPT/HCPCS: 36415; 36416; 36569; 73630; 73720; 78452; 80048; 80053; 80202; 81001; 82962; 83036; 83605; 83735; 84484; 85025; 85651; 86140; 87040; 87070; 87075; 87205; 93005; 93017; 93306; 96365; 96367; 96372; 96375; 96376; 99285; A9500; C1751; J0330; J1650; J1815; J2270; J2405; J2543; J2704; J2710; J2785; J3010; J3370; J3475; J3490; J7030

== ENCOUNTER → 2024-04-21 14:37 | Day surgery (SDC) | payer OTHER, SELFPAY ==
--- NOTE | 2024-04-21 14:49 | XR_ITS ---
WS: [id number] Exam: XR chest 1V portable [id number] Date/Time of Exam: 04/21/2024 2:49 PM Reason For Exam: PICC insertion Comparison 02/12/2018. A right-sided PICC line appears to end in the lower one third of the SVC. The lungs are fully inflate d and clear. Normal cardiomediastinal silhouette. Unremarkable bony elements. XR/XR chest 1V portable [id number] IMPRESSION: 1. Right-sided PICC line appears to end in the lower one third of the SVC. The chest is otherwise unremarkable.
--- NOTE | 2024-04-21 15:15 | PICC.NOTE ---
Single lumen PICC placed to right basilic vein. Referred to vascular access nurse for PICC placement due to midline failure and need for continued IV antibiotics. Risks and benefits discussed and informed consent obtained from pt. Right arm assessed with right basilic vein measuring 5.0 mm, straight, and apparent best choice for placement. Using sterile technique and MST, right basilic vein accessed x 1 stick. Mid-arm circumference measured 10 cm from right AC 36 cm. Trimmed cath 54 cm with 0 cm external length noted. CXR shows tip in distal SVC, in good position for use per radiologist. Line secured with stat-lock. Insertion site covered with Biopatch and TSM. Report faxed to [facility] infusion. Pt scheduled for PICC dressing change and lab draw next Friday04/28/24 at 1:15 at [facility] infusion center. Midline to left arm removed. Cath intact. Pressure held until hemostasis obtained. No redness, swelling, bleeding, or hematoma noted. Pt instructed to leave occlusive dressing in place until tomorrow and then remove. Verbalized understanding.
== END ==
PROVIDERS: PCP Family Medicine; Visit Provider Podiatrist Foot & Ankle Surgery
DX: Z45.2 Encounter for adjustment and management of vascular access device (principal)
CPT/HCPCS: 36573; 71045

== ENCOUNTER 2024-04-28 13:15 | Oncology outpatient (recurring) (ONCR) | payer OTHER, SELFPAY ==
[2024-04-21 13:12] LABS: Basophils # 0.1 10^3/uL (0.0-0.1); Basophils % 1.5 %; Eosinophils # 0.1 10^3/uL (0.0-0.8); Hematocrit 41.8 % (37-53); Lymphocytes # 1.4 10^3/uL (0.8-4.8); Lymphocytes % 21.7 %; Mean Corpuscular HGB Conc 33.5 g/dL (30-55); Mean Corpuscular Hemoglobin 28.2 pg (27-33); Mean Corpuscular Volume 84.3 fl (82-101); Mean Platelet Volume 10.5 fL (7.4-10.4); Monocytes # 0.5 10^3/uL (0.2-0.9); Monocytes % 7.8 %; Neutrophils # 4.36 10^3/uL (1.8-7.7); Neutrophils % 65.6 %; Nucleated Red Blood Cells % 0 %; Platelet Count 236 10^3/cmm (157-399); Red Blood Count 4.96 10^6/uL (3.85-5.65); Red Cell Distribution Width 13.9 % (12.1-15.1); White Blood Count 6.64 10^3/uL (3.29-11.43)
[2024-04-21 15:19] LABS: Alanine Aminotransferase 59 U/L (0-41); Albumin Level 4.3 g/dL (3.5-5.2); Alkaline Phosphatase 84 U/L (40-130); Aspartate Amino Transferase 112 U/L (0-40); Creatine Phosphokinase 111 U/L (39-308); Globulin 3.6 g/dL (1.3-4.6); Glomerular Filtration Rate 77.6 mL/min (90-130); Total Bilirubin 0.4 mg/dL (0.15-1.2); Total Protein 7.9 g/dL (6.6-8.7)
--- NOTE | 2024-04-21 16:04 | PC.NURSE ---
1240 Left basilic midline flushed well, has difficulty return of blood. It is positional and blood return is possible with patient lifting up left arm. Midline flushed with saline x3 post blood return of 6ml, followed by heparin. Patient tolerated well, no complications. Patient will follow up with Loren Bronson for possible new PICC line placement to the right upper arm today at 1300. If left midline is to be left in place dressing will be changed in outpatient surgery. Patient verbalized understanding with all instructions. Leaves ambulatory, family with patient. - Loren Potts
[2024-04-28 13:56] LABS: Basophils # 0.1 10^3/uL (0.0-0.1); Basophils % 1.2 %; Eosinophils # 0.1 10^3/uL (0.0-0.8); Eosinophils % 1.2 %; Hematocrit 42.4 % (37-53); Lymphocytes # 1.7 10^3/uL (0.8-4.8); Lymphocytes % 22.3 %; Mean Corpuscular HGB Conc 33.5 g/dL (30-55); Mean Corpuscular Hemoglobin 28.5 pg (27-33); Mean Corpuscular Volume 85.1 fl (82-101); Mean Platelet Volume 10.4 fL (7.4-10.4); Monocytes # 0.6 10^3/uL (0.2-0.9); Monocytes % 7.9 %; Neutrophils # 5.08 10^3/uL (1.8-7.7); Neutrophils % 66.7 %; Nucleated Red Blood Cells % 0 %; Platelet Count 216 10^3/cmm (157-399); Red Blood Count 4.98 10^6/uL (3.85-5.65); Red Cell Distribution Width 13.8 % (12.1-15.1); White Blood Count 7.61 10^3/uL (3.29-11.43)
[2024-04-28 14:17] LABS: Alanine Aminotransferase 47 U/L (0-41); Albumin Level 4.5 g/dL (3.5-5.2); Alkaline Phosphatase 71 U/L (40-130); Creatine Phosphokinase 132 U/L (39-308); Globulin 2.7 g/dL (1.3-4.6); Glomerular Filtration Rate 77.6 mL/min (90-130); Total Bilirubin 0.4 mg/dL (0.15-1.2); Total Protein 7.2 g/dL (6.6-8.7)
[2024-04-28 14:29] LABS: Aspartate Amino Transferase 78 U/L (0-40)
== END 2024-05-01 23:59 | disposition home or self-care (01) ==
PROVIDERS: Student in an Organized Health Care Education/Training Program; PCP Family Medicine; Visit Provider Internal Medicine Medical Oncology
DX: C18.9 Malignant neoplasm of colon, unspecified (principal); D50.8 Other iron deficiency anemias
CPT/HCPCS: 36415; 36592; 80076; 82550; 82565; 85025; 87070; 87075; 87205

== ENCOUNTER 2024-05-05 15:07 | Oncology outpatient (recurring) (ONCR) | payer OTHER, SELFPAY | END 2024-06-01 23:59 | disposition home or self-care (01) | LOC: ONCMED 15:08 | PROVIDERS: PCP Family Medicine; Visit Provider Internal Medicine Medical Oncology | DX: Z53.9 Procedure and treatment not carried out, unspecified reason ==

== ENCOUNTER → 2024-06-09 13:46 | Outpatient (BNVA) | payer OTHER, SELFPAY | PROVIDERS: PCP Family Medicine; Visit Provider Family Medicine | DX: E11.8 Type 2 diabetes mellitus with unspecified complications | CPT/HCPCS: 80053; 83036 ==

== ENCOUNTER 2024-09-16 12:56 | Oncology outpatient (recurring) (ONCR) | payer OTHER, SELFPAY ==
[2024-09-16 13:37] LABS: Basophils # 0.1 10^3/uL (0.0-0.1); Eosinophils # 0.2 10^3/uL (0.0-0.8); Eosinophils % 4.7 %; Hematocrit 42.2 % (37-53); Lymphocytes # 1.5 10^3/uL (0.8-4.8); Lymphocytes % 30.8 %; Mean Corpuscular HGB Conc 33.4 g/dL (30-55); Mean Corpuscular Hemoglobin 27.5 pg (27-33); Mean Corpuscular Volume 82.3 fl (82-101); Mean Platelet Volume 9.9 fL (7.4-10.4); Monocytes # 0.4 10^3/uL (0.2-0.9); Monocytes % 8.7 %; Neutrophils # 2.69 10^3/uL (1.8-7.7); Neutrophils % 54.4 %; Nucleated Red Blood Cells % 0 %; Platelet Count 151 10^3/cmm (157-399); Red Blood Count 5.13 10^6/uL (3.85-5.65); Red Cell Distribution Width 14.1 % (12.1-15.1); White Blood Count 4.94 10^3/uL (3.29-11.43)
[2024-09-16 13:56] LABS: Estmated Average Glucose 154
[2024-09-16 14:03] LABS: Carcinoembryonic Antigen 2.3 ng/mL (0.0-4.7)
[2024-09-16 14:14] LABS: Alanine Aminotransferase 47 U/L (0-41); Albumin Level 4.5 g/dL (3.5-5.2); Alkaline Phosphatase 51 U/L (40-130); Anion Gap 20.4 (5-19); Aspartate Amino Transferase 35 U/L (0-40); Blood Urea Nitrogen 19 mg/dL (6-20); Calcium 9.1 mg/dL (8.5-10.5); Carbon Dioxide 18 mmol/L (22-29); Chloride 104 mmol/L (98-107); Chol HDL Ratio 5.41 mg/dL (1.0-5.00); Cholesterol 173 mg/dL (0-200); Creatinine Clr Calc Pharmacy 120.5333; Globulin 2.7 g/dL (1.3-4.6); Glomerular Filtration Rate 77.6 mL/min (90-130); Glucose 178 mg/dL (65-115); HDL Cholesterol 32 mg/dL (60-100); LDL Cholesterol Calculated 63 mg/dL (50-129); LDL HDL Ratio 1.97 RATIO (0.00-3.22); Osmolality Calculated 293 mOsm/kg (285-295); Potassium 4.4 mmol/L (3.5-5.1); Sodium 138 mmol/L (136-145); Total Bilirubin 0.4 mg/dL (0.15-1.2); Total Protein 7.2 g/dL (6.6-8.7); Triglycerides 392 mg/dL (0-150)
== END 2024-09-29 23:59 | disposition home or self-care (01) ==
PROVIDERS: Nurse Practitioner Family; PCP Family Medicine; Visit Provider Internal Medicine Medical Oncology
DX: E78.5 Hyperlipidemia, unspecified (principal); C18.9 Malignant neoplasm of colon, unspecified; E11.8 Type 2 diabetes mellitus with unspecified complications
CPT/HCPCS: 36415; 80053; 80061; 82378; 83036; 85025

== ENCOUNTER → 2025-01-25 12:08 | Outpatient (BNVA) | payer OTHER, SELFPAY | PROVIDERS: PCP Family Medicine; Visit Provider Family Medicine | DX: E11.8 Type 2 diabetes mellitus with unspecified complications (principal) | CPT/HCPCS: 80053; 80061; 83036; 83721; 85025 ==